=== PATIENT | female | born 1960 | race Two or more races ===

== ENCOUNTER 2023-09-29 12:35 | Outpatient (REF) | payer MEDICAID, SELFPAY ==
[2023-09-29 14:23] LABS: Estimated Average Glucose 123 mg/dL; Hemoglobin A1c % 5.9 % (<6.0)
[2023-09-29 14:44] LABS: Alanine Aminotransferase 14 U/L (0-31); Alkaline Phosphatase 95 U/L (39-117); Anion Gap 15 (12-20); Aspartate Amino Transferase 20 U/L (5-31); Bilirubin Total 0.2 mg/dL (0.0-1.0); Blood Urea Nitrogen 12 mg/dL (9-16); Calcium 9.4 mg/dL (8.4-10.2); Carbon Dioxide 24 mmol/L (22-29); Chloride 107 mmol/L (96-108); Cholesterol 200 mg/dL (<200); Estimated Glomerular Filt Rate > 60; Glucose Fasting 107 mg/dL (60-99); HDL Cholesterol 41 mg/dL (>40); LDL Cholesterol Calculated 117 mg/dL (<100); Potassium 3.5 mmol/L (3.3-5.1); Sodium 142 mmol/L (135-145); Total Protein 7.6 g/dL (6.5-8.0); Triglycerides 210 mg/dL (<150)
[2023-09-29 14:51] LABS: TSH reflex Free T4 2.17 uIU/mL (0.32-4.0)
== END 2023-09-29 12:36 | disposition home or self-care (01) ==
LOC: HO.CHCLDS 12:35
PROVIDERS: Visit Provider Registered Nurse
DX: Z00.00 Encounter for general adult medical examination without abnormal findings (principal); R73.03 Prediabetes; E78.1 Pure hyperglyceridemia; I10 Essential (primary) hypertension
CPT/HCPCS: 36415; 80053; 80061; 83036; 84443

== ENCOUNTER 2023-12-22 12:51 | Outpatient (REF) | payer MEDICAID, SELFPAY ==
[2023-12-22 14:12] LABS: MANUAL DIFF FLAG NO
[2023-12-22 14:21] LABS: Basophils Percent Auto 0.4 % (0-2); Eosinophils Absolute Auto 0.3 X10*3/uL (0.0-0.4); Eosinophils Percent Auto 3.3 % (0-4); Hematocrit 33.5 % (37.0-47.0); Hemoglobin 10.7 g/dl (12.0-16.0); Imm Gran Abs Auto 0.02 X10*3/uL (0.00-0.03); Imm Gran Pct Auto 0.3 % (0.0-0.4); Lymphocytes Absolute Auto 1.5 X10*3/uL (1.2-4.9); Lymphocytes Percent Auto 19.9 % (20-40); Mean Corpuscular HGB Conc 31.9 g/dl (31.0-35.0); Mean Corpuscular Hemoglobin 26.9 pg (27.0-33.0); Mean Corpuscular Volume 84.2 fL (80.0-98.0); Mean Platelet Volume 10.5 fL (9.4-12.3); Monocytes Absolute Auto 0.3 X10*3/uL (0.1-1.2); Monocytes Percent Auto 4.1 % (2-11); Neutrophils Absolute Auto 5.5 x10*3/uL (2.0-8.3); Platelet Count 379 X10*3/uL (160-400); Red Blood Count 3.98 X10*6/uL (4.20-5.50); Red Cell Distribution Width 15.5 % (11.0-16.0); White Blood Count 7.7 X10*3/uL (4.8-10.8)
[2023-12-22 15:21] LABS: Anion Gap 13 (12-20); Blood Urea Nitrogen 21 mg/dL (9-16); Calcium 9.6 mg/dL (8.4-10.2); Carbon Dioxide 27 mmol/L (22-29); Chloride 106 mmol/L (96-108); Estimated Glomerular Filt Rate 53; Glucose Random 98 mg/dL (60-115); Potassium 3.7 mmol/L (3.3-5.1); Sodium 142 mmol/L (135-145)
[2023-12-22 15:24] LABS: Alanine Aminotransferase 17 U/L (0-31); Albumin Level 4.2 g/dL (3.5-5.0); Alkaline Phosphatase 77 U/L (39-117); Aspartate Amino Transferase 18 U/L (5-31); Bilirubin Direct < 0.2 mg/dL (0.0-0.5); Bilirubin Total 0.1 mg/dL (0.0-1.0); Cholesterol 178 mg/dL (<200); HDL Cholesterol 33 mg/dL (>40); LDL Cholesterol Calculated 75 mg/dL (<100); Total Protein 7.8 g/dL (6.5-8.0); Triglycerides 353 mg/dL (<150)
[2023-12-23 12:58] LABS: HBS Num1 0.05 mIU/mL (0-7.99); HBc Num1 0.12 S/CO (0.00-0.79); Hepatitis B Core Antibody Nonreactive (Nonreactive); Hepatitis B Surface Antigen Negative (Negative); ~Hepatitis B Surface Antibody NONREACTIVE (Nonreactive)
[2023-12-23 17:49] LABS: Mumps Virus IgG Antibody <9.00 AU/mL; Rubella IgG Antibody 1.83 Index; Rubeola IgG (Measles) >300.00 AU/mL
[2023-12-24 20:24] LABS: TS Negative Control Passed; TS Panel A 0; TS Panel B 0; TS Positive Control Passed; TSpotTB Negative (Negative)
== END 2023-12-22 12:52 | disposition home or self-care (01) ==
LOC: HO.CHCLDS 12:51
PROVIDERS: Visit Provider Registered Nurse
DX: Z00.00 Encounter for general adult medical examination without abnormal findings (principal); Z11.1 Encounter for screening for respiratory tuberculosis; E78.00 Pure hypercholesterolemia, unspecified
CPT/HCPCS: 36415; 80048; 80061; 80076; 85025; 86481; 86704; 86706; 86735; 86762; 86765; 86787; 87340

== ENCOUNTER 2024-03-11 12:16 | Outpatient (REF) | payer MEDICAID, SELFPAY ==
[2024-03-11 13:21] LABS: MANUAL DIFF FLAG NO
[2024-03-11 13:29] LABS: Basophils Percent Auto 0.5 % (0-2); Eosinophils Absolute Auto 0.3 X10*3/uL (0.0-0.4); Eosinophils Percent Auto 4.7 % (0-4); Hematocrit 33.9 % (37.0-47.0); Hemoglobin 10.8 g/dl (12.0-16.0); Imm Gran Abs Auto 0.04 X10*3/uL (0.00-0.03); Imm Gran Pct Auto 0.6 % (0.0-0.4); Lymphocytes Absolute Auto 1.7 X10*3/uL (1.2-4.9); Lymphocytes Percent Auto 26.5 % (20-40); Mean Corpuscular HGB Conc 31.9 g/dl (31.0-35.0); Mean Corpuscular Hemoglobin 27.3 pg (27.0-33.0); Mean Corpuscular Volume 85.8 fL (80.0-98.0); Mean Platelet Volume 10.7 fL (9.4-12.3); Monocytes Absolute Auto 0.4 X10*3/uL (0.1-1.2); Monocytes Percent Auto 6.2 % (2-11); Neutrophils Percent Auto 61.5 % (45-73); Platelet Count 328 X10*3/uL (160-400); Red Blood Count 3.95 X10*6/uL (4.20-5.50); Red Cell Distribution Width 14.6 % (11.0-16.0); White Blood Count 6.6 X10*3/uL (4.8-10.8)
[2024-03-11 13:45] LABS: Anion Gap 11 (12-20); Blood Urea Nitrogen 12 mg/dL (9-16); Calcium 9.3 mg/dL (8.4-10.2); Carbon Dioxide 26 mmol/L (22-29); Chloride 109 mmol/L (96-108); Estimated Glomerular Filt Rate 54; Glucose Random 95 mg/dL (60-115); Sodium 142 mmol/L (135-145)
== END 2024-03-11 12:17 | disposition home or self-care (01) ==
LOC: HO.HHCL 12:16
PROVIDERS: Visit Provider Internal Medicine
DX: Z01.818 Encounter for other preprocedural examination (principal)
CPT/HCPCS: 36415; 80048; 85025

== ENCOUNTER 2024-05-21 09:56 | Outpatient (REF) | payer MEDICAID, SELFPAY ==
[2024-05-21 14:41] LABS: Cholesterol 186 mg/dL (<200); HDL Cholesterol 38 mg/dL (>40); LDL Cholesterol Calculated 95 mg/dL (<100); Triglycerides 269 mg/dL (<150)
[2024-05-21 15:10] LABS: Folate 13.8 ng/mL (> or = 4.0); Vitamin B12 718 pg/mL (200-900)
[2024-05-25 13:13] LABS: Methylmalonic Acid 132 nmol/L (69-390)
== END 2024-05-21 09:57 | disposition home or self-care (01) ==
LOC: HO.CHCLDS 09:56
PROVIDERS: Visit Provider Registered Nurse
DX: G47.9 Sleep disorder, unspecified (principal); E78.00 Pure hypercholesterolemia, unspecified
CPT/HCPCS: 36415; 80061; 82607; 82746; 83921

== ENCOUNTER → 2024-07-26 14:00 | Outpatient (BNV) | payer MEDICAID, SELFPAY | PROVIDERS: PCP Registered Nurse; Referring Provider Registered Nurse; Visit Provider Internal Medicine | DX: D50.9 Iron deficiency anemia, unspecified (principal) | CPT/HCPCS: 99204 ==

== ENCOUNTER 2024-09-20 13:11 | Outpatient (REF) | payer MEDICAID, SELFPAY ==
[2024-09-20 15:37] LABS: TSH reflex Free T4 1.91 uIU/mL (0.32-4.0)
== END 2024-09-20 13:12 | disposition home or self-care (01) ==
LOC: HO.HHCL 13:11
PROVIDERS: Visit Provider Internal Medicine
DX: F41.9 Anxiety disorder, unspecified (principal)
CPT/HCPCS: 36415; 84443

== ENCOUNTER 2024-12-22 12:51 | Outpatient (REF) | payer MEDICAID, SELFPAY ==
[2024-12-22 14:27] LABS: Estimated Average Glucose 128 mg/dL; Hemoglobin A1C 119.4086 umol/L; Hemoglobin A1c % 6.1 % (<6.0); Total Hemoglobin (HGBA1C) 2786.5129 umol/L
[2024-12-22 14:31] LABS: Amphetamine Screen Urine Not Detected (Not Detect); Barbiturates, Urine Not Detected (Not Detect); Benzodiazepines Screen Urine Not Detected (Not Detect); Buprenorphine Scr Not Detected (Not Detect); Cannabinoid Screen Urine Not Detected (Not Detect); Cocaine Screen Urine Not Detected (Not Detect); Fentanyl, urine Not Detected (Not Detect); Methadone Screen, Urine Not Detected (Not Detect); Opiate Screen Urine Not Detected (Not Detect); Oxycodone Screen Urine Not Detected (Not Detect); Phencyclidine Screen Urine Not Detected (Not Detect)
[2024-12-22 14:38] LABS: Alanine Aminotransferase 48 U/L (0-31); Albumin Level 3.9 g/dL (3.5-5.0); Alkaline Phosphatase 91 U/L (39-117); Anion Gap 6 (12-20); Aspartate Amino Transferase 35 U/L (5-31); Bilirubin Total 0.2 mg/dL (0.0-1.0); Blood Urea Nitrogen 18 mg/dL (9-16); Carbon Dioxide 26 mmol/L (22-29); Chloride 111 mmol/L (96-108); Cholesterol 140 mg/dL (<200); Estimated Glomerular Filt Rate > 60; Glucose Random 86 mg/dL (60-115); HDL Cholesterol 26 mg/dL (>40); LDL Cholesterol Calculated 42 mg/dL (<100); Magnesium 2.2 mg/dL (1.6-2.6); Potassium 3.9 mmol/L (3.3-5.1); Sodium 139 mmol/L (135-145); Total Protein 7.5 g/dL (6.5-8.0); Triglycerides 360 mg/dL (<150)
--- OUTSIDE RECORDS SUMMARY | 2024-12-22 14:39 | XMS_ITS | Encounter Summary ---
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 Role Phone Unavailable Primary Care Provider Unavailabl e Encounter Details Date Type Department Care Team (Late st Contact Info) Description 10/07/2022 Dental Interim Note [facility] [address] [place] [phone] PascalChinyere solomon Y [address] [place], [place] [id number] Social History Tobacco Use Types Packs/Day Years Used Date Smoking Tobacco: Never Assessed Social Connections Answer Date Recorded Social Connections and Isolation 0 04/01/2022 Financial Resource Strain Answer Date R ecorded Financial Resource Strain 0 2021 Stress Answer Date Recorded Stress 0 04/01/2022 Physical Activity Answer Date Recorded Physical Activity 0 04/01/2022 Food Insecurity Answer Date Recorded Food 0 04/01/2022 Transportation Needs Answer Date Record ed Transportation 0 04/01/2022 Housing Stability Answer Date Recorded Housing 0 04/01/2022 Safety and Environment Answer Date Tra rded Safety 0 04/01/2022 Utilities Answer Date Recorded Utilities 0 04/01/2022 Employment Answer Date Recorded Employment 0 04/01/2022 Comments Unknown Sex and Gender Information Value Date Recorded Sex Assigned at Not on file Legal Sex Female 11:36 AM PDT Gender Identity Not on file Sexual Orientation Not on file documented as of this encounter Plan of Treatment Not on file documented as of this encounter Visit Diagnoses Not on filedocumented in this encounter
--- OUTSIDE RECORDS SUMMARY | 2024-12-22 14:39 | XMS_ITS | Clinical Summary ---
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 Role Phone Unavailable Primary Care Provider Unavailabl e Source Comments PLEASE NOTE, if this patient is a minor, it may be UNLAWFUL to discuss sensitive information that is contained in these records (such as FAMILY PLANNING, MENTAL HEALTH or SUBSTANCE ABUSE) with the minor patient's parent or other person without the patient's specific authorization.[facility] Medications No known medications Active Problems No known active problems Social History Tobacco Use Types Packs/Day Years Used Date Smoking Tobacco: Never Smokeless Tobacco: Never Tobacco Cessation:Counseling Given: Not Answered Social Connections Answer Date Recorded Connectedness 0 08/18/2024 Financial Resource Strain Answer Date R ecorded Financial Resource Strain 0 2021 Stress Answer Date Recorded Stress 0 04/01/2022 Physical Activity Answer Date Recorded Physical Activity 0 04/01/2022 Food Insecurity Answer Date Recorded Food 0 08/26/2024 Transportation Needs Answer Date Record ed Transportation 0 04/01/2022 Housing Stability Answer Date Recorded Housing 0 04/01/2022 Safety and Environment Answer Date Tra rded Safety 0 04/01/2022 Utilities Answer Date Recorded Utilities 0 04/01/2022 Employment Answer Date Recorded Stress 0 08/18/2024 Comments Unknown Sex and Gender Information Value Date Recorded Sex Assigned at Not on file Legal Sex Female 11:36 AM PDT Gender Identity Not on file Sexual Orientation Not on file Last Filed Vital Signs Vital Sign Reading Time Taken Comments Blood Pressure 165/76 02/24/2024 1:24 PM EDT Pulse 72 02/24/2024 1:24 PM EDT Temperature - - Respiratory Rate - - Oxygen Saturation - - Inhaled Oxygen Concentration - - Weight - - Height - - Body Mass Index - - Plan of Treatment Health Maintenance Due Date Last Done Comments Dental FMX/Pano 1960 HPV Screening 1960 Pap + HPV 1960 Cervical Cancer Screening 02/17/1981 Pap Smear 02/17/1981 Breast Cancer Screening (Mammogram) 2000 CT Colonography 02/17/2005 Colonoscopy 02/17/2005 Colorectal Cancer Screening 02/17/2005 FIT/gFOBT 02/17/2005 Fecal DNA 02/17/2005 Flexible Sigmoidoscopy 02/17/2005 Imm-Zoster, Recombinant (1 of 2) 02/17/2010 [id number] ( season) 2024 Imm-Influenza (#1) 2024 09/04/2021, 0 08/20/2020, 09/13/2019, Additional history exists Alcohol and Drug Screen 12/01/2024 Depression Annual Screen 12/01/2024 Tobacco Screening 01/05/2025 01/05/2024 Dental BW 01/07/2025 01/05/2024, 01/29, 04/01/2022 Dental Examination 01/07/2025 01/05/2024, 0 02/12/2023, 04/01/2022 Dental Perio Charting 01/07/2025 01/05/2024, 022 Dental Prophy 01/07/2025 01/05/2024, 02/12/2023 Hypertension Screening (#1) 02/23/2025 Diabetes Screening 03/27/2026 03/27/2023, 0 12/17/2022, 07/15/2022, Additional history exists Imm-DTaP/Tdap/Td (3 - Td or Tdap) 07/30/2026 016, 05/15/2011 Lipid Screening 01/27/2028 01/27/2023, 12/17/2022 HIV Screening Completed 11/13/2021 Hepatitis C Screening Completed 12/17/2022 Cervical Ablation/Cold-Knife Conization Discontinued Cervical Cryotherapy Discontinued Colposcopy Discontinued Endometrial Biopsy Discontinued Excision/Leep Discontinued HPV Genotyping Discontinued Vaginal Pap Discontinued Vulvoscopy Discontinued Procedures Procedure Name Priority Date/Time Associated Diagnosis Comments COMP PERIODONTAL EVALUATION - NEW/EST PATIENT Routine 01/05/2024 2:20 PM EST Encounter for dental examination and cleaning with abnormal findings BITEWINGS - FOUR RADIOGRAPHIC IMAGES Routine 01/05/2024 2:20 PM EST Defective dental samaritan Encounter for dental examination and cleaning with abnormal findings PROPHYLAXIS - ADULT Routine 01/05/2024 2 :20 PM EST Encounter for dental examination and cleaning with abnormal findings PERIODIC ORAL EVALUATION ESTABLISHED PATIENT Routine 01/05/2024 2:20 PM EST Encounter for dental examination and cleaning with abnormal findings from Last 3 Months or Most Recently Relevant to Health Maintenance Insurance [facility] [address] [place]
--- OUTSIDE RECORDS SUMMARY | 2024-12-22 14:40 | XMS_ITS | Clinical Summary ---
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 Health Questionnaire-2 Score 2 12/13/2024 Comments Unknown Sex and Gender Information Value Date Recorded Sex Assigned at Female 09/30/2022 10:37 AM EDT Legal Sex Female 10:37 AM EDT Gender Identity Female 09/30/2022 10:37 AM EDT Sexual Orientation Straight 09/30/2022 10 :37 AM EDT Last Filed Vital Signs Vital Sign Reading Time Taken Comments Blood Pressure 140/71 12/13/2024 11:23 AM EST Pulse 70 12/13/2024 11:23 AM EST Temperature 36.9 ??C (98.5 ??F) 12/13/2024 11:[address] Respiratory Rate 20 12/13/2024 11:23 AM EST Oxygen Saturation 98% 12/13/2024 11:23 AM EST Inhaled Oxygen Concentration - - Weight 84 kg (185 lb 2 oz) 12/13/2024 11:[address] Height 160 cm (5' 3 ) 12/13/2024 11:23 AM EST Body Mass Index 32.79 12/13/2024 11:23 AM EST Plan of Treatment Health Maintenance Due Date Last Done Comments CT Colonography 1960 Colonoscopy 1960 Colorectal Cancer Screening 1960 FIT DNA/Cologuard 1960 FIT 1960 FOBT 1960 Sigmoidoscopy 1960 Hepatitis A Vaccines (1 of 2 - Risk 2-dose series) 02/17/1979 Zoster Vaccines (1 of 2) 02/17/2010 RSV Patients and Patients Aged 60 years or older (1 - Risk 60-74 years 1-dose series) 2020 COVID-19 Vaccine ( season) 2024 Influenza Vaccine (#1) 2024 , 09/04/2021, 08/20/2020, Additional history exists Hepatitis B Vaccines (3 of 3 - Risk 3-dose series) 08/04/2024 05/21/2024, 02/02/2024 Diabetes: Hemoglobin A1C 09/29/2024 025, 09/29/2023, 03/27/2023, Additional history exists Mammogram 02/04/2025 02/04/2023 SDOH Screening 05/11/2025 05/11/2024 Depression Monitoring (PHQ-9) 06/12/2025 12/13/2024, 12/13/2024 Alcohol/Substance Use Screening 11/05/2025 11/05/2024 Depression Screening 12/13/2025 12/13/2024, 12/13/19 Tobacco Screening 12/13/2025 12/13/2024 DTaP/Tdap/Td Vaccines (3 - Td or Tdap) 07/30/2026 07/30/2016, 05/15/2011 Cervical Cancer Screening 01/02/2027 HPV/Cotest 01/02/2027 01/02/2022 Pap Smear 01/02/2027 01/02/2022 Lipid Panel 05/21/2029 12/22/2024, 0612/2023, 12/22/2023, Additional history exists Pneumococcal Vaccine: Pediatrics (0 to 5 Years) and At-Risk Patients (6 to 64 Years) Aged Out 08/28/2016, 09/13/2014 No longer eligibl e based on patient's age to complete this topic HIV Screening Completed 12/17/2022, 11/13/2021 Hepatitis C Screening Completed 12/17/2022 , 11/13/2021, 03/26/2021 HIB Vaccines Aged Out No longer eligi ble based on patient's age to complete this topic HPV Vaccines Aged Out No longer eligi ble based on patient's age to complete this topic IPV Vaccines Aged Out No longer eligi ble based on patient's age to complete this topic Meningococcal Vaccine Aged Out No dione casimiro eligible based on patient's age to complete this topic RSV under 20 months Aged Out No longe r eligible based on patient's age to complete this topic Rotavirus Vaccines Aged Out No longer eligible based on patient's age to complete this topic Goals Goal Patient Goal Type Associated Problems Recent Progress Patient-Stated? Author Record your blood pressure once per day Blood Pressure No Serafin Sue PharmD Short-term: Promote adherence to treatment regimen General No Serafin Sue PharmAlicia Take your medication every day Lifestyle No Serafin Sue PharmD Procedures Procedure Name Priority Date/Time Associated Diagnosis Comments MAGNESIUM Routine 12/22/2024 12:54 PM EST History of bariatric surgery LIPID PANEL, STANDARD Routine 12/22/2024 12:54 PM EST Prediabetes COMPREHENSIVE METABOLIC PANEL Routine 12/22/2024 12:54 PM EST Prediabetes HEMOGLOBIN A1C Routine 12/22/2024 12:54 PM EST Prediabetes DRUG MONITOR, PANEL 1, SCREEN, URINE Routine 12/22/2024 12:15 PM EST Moderate anxiety HM MAMMOGRAPHY Routine 02/04/2023 HEPATITIS C AB W/REFL TO HCV RNA, QN, PCR Routine 12/17/2022 11:08 AM EST Routine health maintenance HIV 1 RNA, QN PCR W/RFL NATHAN (RTI,PI,INTEGRASE) Routine 12/17/2022 11:08 AM EST Routine health maintenance PAP/HPV Routine 01/02/2022 from Last 3 Months or Most Recently Relevant to Health Maintenance Results * (ABNORMAL) Hemoglobin A1c (12/22/2024 12:54 PM EST) Hemoglobin A1c 6.1(H) <6.0 % [facility] Comment:Hemoglobin A1C Refer ence Range Adults: 4.8 - 6.0 % Non diabetic: < 6.0 % Goal: < 7.0 %Additional Action Suggested: > 8.0 %Note: Hemoglobin A1c results are invalid for patients with abnormal amounts of HbF. Blood transfusions may impact the HbA1c concentration in the patient sample. Estimated Average Glucose 128 mg/dL [facility] Comment:eAG = Estimated ave rage glucose which is %A1C expressed asaverage glucose, using the formula of the H7R-FeykmpqUvwmcjk Glucose study (ADAG), Diabetes Care, Vol.31,#8,Jul. 2007 Blood Venous blood specimen / Unknown 12/22/2024 12:54 PM EST 12/22/2024 2:00 PM EST Donna Sinclair [facility] BLOOD ORDERABLES Final Res ult [facility] [address] [place] [phone] * Drug Monitoring, Panel 1, Screen, Urine (12/22/2024 12:15 PM EST) Opiate Screen Urine Not Detected Not Detect [facility] Comment:Opiate cut-off is 30 0 ng/mL.Positive results are unconfirmed and should not be used fornon-medical purposes. Barbiturates, Urine Not Detected Not Detect [facility] Comment:Barbiturate cut-off is 200 ng/mL.Positive results are unconfirmed and should not be used fornon-medical purposes. Phencyclidine Screen Urine Not Detected Not Detect [facility] Comment:Phencyclidine cut-of f is 25 ng/mL.Positive results are unconfirmed and should not be used fornon-medical purposes. Amphetamine Screen Urine Not Detected Not Detect [facility] Comment:Amphetamine cut-off is 1000 ng/mL.Positive results are unconfirmed and should not be used fornon-medical purposes. Benzodiazepines Screen Urine Not Detected Not Detect [facility] Comment:Benzodiazepine cut-o ff is 200 ng/mL.Positive results are unconfirmed and should not be used fornon-medical purposes. Cocaine Screen Urine Not Detected Not Detect [facility] Comment:Cocaine cut-off is 3 00 ng/mL.Positive results are unconfirmed and should not be used fornon-medical purposes. Cannabinoid Screen Urine Not Detected Not Detect [facility] Comment:Cannabinoid cut-off is 50 ng/mL.Positive results are unconfirmed and should not be used fornon-medical purposes. Methadone Screen, Urine Not Detected Not Detect ng/mL [facility] Comment:Methadone cut-off is 300 ng/mL.Positive results are unconfirmed and should not be used fornon-medical purposes. FENTANYL URINE Not Detected Not Detect [facility] Comment:Fentanyl cut-off is 1 ng/mL.Positive results are unconfirmed and should not be used fornon-medical purposes. Oxycodone Urine Screen Not Detected Not Detect ng/mL [facility] Comment:Oxycodone cut-off is 100 ng/mL.Positive results are unconfirmed and should not be used fornon-medical purposes. Buprenorphine Screen Not Detected Not Detect ng/mL [facility] Comment:Buprenorphine cut-of f is 5 ng/mL.Positive results are unconfirmed and should not be used fornon-medical purposes. Urine (Urine, Random) 12/22/2024 12:15 PM EST 12/22/2024 2:02 PM EST Serafin Hussein PMHNP LAB URINE ORDERABLES Final Re sult [facility] [address] [place] [phone] [phone] * Hm Mammography (02/04/2023) Pathologist [facility] HM Mammogram BIRADS 2 Normal, Abnormal, BIRADS 1 , BIRADS 2 Anatomical Region Laterality Modality Other Historical Provider HEALTH MAINTENANCE Edited Result - Final * HIV-1 RNA, Quantitative, Real-Time PCR with Reflex to Genotype (RTI, PI, Integrase) (12/17/2022 11:08 AM EST) Pathologist [facility] HIV 1 RNA, QN PCR NOT DETECTED copies/mL [facility], HIV 1 RNA, QN PCR NOT DETECTED Log copies/mL [facility], Comment: REFERENCE RANGE: NOT DETECTED copies/mL ?NOT DETECTED ??Log copies/mL This test was performed using Real-Time Polymerase Chain Reaction. Reportable range is 20 to 10,000,000 copies/mL (1.30-7.00 Log copies/mL). 12/17/2022 11:0 8 AM EST 12/17/2022 11:08 AM EST Narrative [facility] - 12/21/2022 10:38 AM EST FASTING:NO FASTING: NO Donna Sinclair [facility] LAB BLOOD ORDERABLES Final Res ult [facility] [address], [place] [address] [employer], [address] [place] [address] * Hepatitis C Antibody with Reflex to HCV, RNA, Quantitative, Real-Time PCR (12/17/2022 11:08 AM EST) Pathologist [facility] Hepatitis C Antibody NON-REACT LILLIAM NON-REACT LILLIAM [employer] [place] [facility] Index 0.07 <1.00 [employer] [facility] Comment: HCV antibody was non-reactive. There is no laboratory evidence of HCV infection. In most cases, no further action is required. However, if recent HCV exposure is suspected, a test for HCV RNA (test code 46181) is suggested. For additional information please refer to http://education.Moqom.T-ZONE/faq/KPD01x4 (This link is being provided for informational/ educational purposes only.) Blood Venous blood specimen / Unknown 12/17/2022 11:08 AM EST 12/17/2022 11:08 AM EST Narrative [facility] - 12/21/2022 10:38 AM EST FASTING:NO FASTING: NO Donna Sinclair RN CLINICAL LAB BLOOD ORDERABLES Final Res ult [facility] [address], [place] [address] [employer] [facility] [address] [facility], ([address]) [place] [address] * Pap Smear (01/02/2022) Pap Negative for intraephithelial lesion or malignancy Negative for intraephithelial lesion or malignancy, Other HPV Not Detected Undetected, Indeterminate, Quantitative, Not Detected Historical Provider MD HEALTH MAINTENANCE Final Result from Last 3 Months or Most Recently Relevant to Health Maintenance Insurance [facility] Care Teams Flyer Maker Relationship Specialty Start Date End Date Donna Sinclair FNP [address] [place] [phone] PCP - General Family Medicine 07/23/22 Nafisa Garcia MD [address] [place] [phone] Hematology and Oncology 11/11/24
--- OUTSIDE RECORDS SUMMARY | 2024-12-22 14:40 | XMS_ITS | Encounter Summary ---
Author Organization [employer] Address [address] [facility] [address] [place] [address] Care Team Providers Care Sales Account Leader Name Role Phone Donna Sinclair [place] Primary Care Provider [phone] Nafisa Garcia MD Unavailable Encounter Details Date Type Department Care Team (Latest Contact Info) Description 12/13/2024 Travel Social History Tobacco Use Types Packs/Day Years Used Date Smoking Tobacco: Never Smokeless Tobacco: Never Alcohol Use Standard Drinks/Week Comments Never 0 (1 standard drink = 0.6 oz pur e alcohol) Depression Answer Date Recorded Patient Health Questionnaire-9 Score 10 12/13/2024 Patient Health Questionnaire-9 Score 10 12/13/2024 Last PHQ-9: Questionnaire Data Not on file 0 12/13/2024 Housing Stability Answer Date Recorded What is your housing situation today? I have lashae fontana 05/11/[address] you [...] Orientation Straight 09/30/2022 10 :37 AM EDT documented as of this encounter Plan of Treatment Not on file documented as of this encounter Goals Goal Patient Goal Type Associated Problems Recent Progress Patient-Stated? Author Record your blood pressure once per day Blood Pressure No Serafin Sue PharmD Short-term: Promote adherence to treatment regimen General No Serafin Sue PharmD Take your medication every day Lifestyle No Serafin Sue PharmD documented as of this encounter Visit Diagnoses Not on filedocumented in this encounter Additional Health Concerns Assessment Noted Time PHQ-9 Depression Total Score: 10 025 11:34 AM EST documented as of this encounter Care Teams Sales Account Leader Relationship Specialty Start Date End Date Donna Sinclair FNP [address] [place] [address] PCP - General Family Medicine 07/23/22 Nafisa Garcia MD [address] [place] [phone] Hematology and Oncology 11/11/24 documented as of this encounter
--- OUTSIDE RECORDS SUMMARY | 2024-12-22 14:40 | XMS_ITS | Encounter Summary ---
Author Organization [employer] Address [address] [place] [address] [address] [place] [address] Care Team Providers Care Enterprise Manager Name Role Phone Donna Sinclair Primary Care Provider [phone] Nafisa Garcia MD Unavailable [phone] Reason for Referral * Consultation (Routine) - Authorized Specialty Diagnoses / Procedures Referred By Pillo spicer Referred To Contact Dermatology / Family Medicine Diagnoses Alopecia Donna Sinclair FNP [address] [place] [address] Phone: tel: fax: Travis Gillette MD [address] [place] [address] Phone: tel: fax: Referral ID Status Reason Start Date Expiration Date Visits Requested Visits Authorized [id number] Authorized Consult and Treat 12/13/2024 12/13/2025 1 1 Encounter Details Date Type Department Care Team ([facility] st Contact Info) Description 12/13/2024 11:00 AM EST Office Visit [facility] [address] [place], [place] [phone] Donna Sinclair FNP [address] [place], [place] [phone] Alopecia (Primary Dx); Prediabetes; Anemia, unspecified type; Other insomnia; Moderate anxiety; History of bariatric surgery; Subclinical hypothyroidism; Skin abrasion; Obesity, unspecified class, unspecified obesity type, unspecified whether serious comorbidity present Social History Tobacco Use Types Packs/Day Years [...] AM EDT documented as of this encounter Last Filed Vital Signs Vital Sign Reading [...] Mass Index 32.79 12/13/2024 11:23 AM EST documented in this encounter Progress Notes * Donna Dottie, PLOW HOLDER - 12/13/2024 11:00 AM EST Subjective: Margarita Garza is a 64 y.o. female w/ PMH hypertension, detrusor overactivity, MDD, anxiety, HTG, HLD, alopecia, and sleep difficulties who presents to the office for a follow up visit. Interim history: Last visit with PCP: 11/05/24 12/10/24: Heme/Onc - Dr. Garcia. SUNITHA eval. Labs demonstrated mild normocytic anemia w/o significant iron deficiency. No need for parenteral iron therapy at this time. She will be monitored. Advised togo for EGD and colonoscopy. HPI: She continues grappling with grief following the passing of her . During last appointment, she was started on buspirone 5 mg twice daily to help with anxiety. Reports that she experiencedrash with buspirone and thus self discontinued. She continues with topiramate 50 mg nightly, which continues to be helpful for sleep. She is scheduled for an upcoming appointment with our addiction psychiatrist. Past Surgical History: Procedure Laterality Date BARIATRIC SURGERY gastric sleeve SACRAL NERVE STIMULATOR PLACEMENT 03/18/2024 Sacral Neuromodulation Permanent Implant (Dr. Zamora at [facility]) Family History Problem Relation Asthma Mother Hyperlipidemia Mother Coronary artery disease Mother Diabetes type II Father Other (thyroid disorder) Father Social History Living situation: lives alone Substance use: denies use of tobacco, opioids, or cocaine Mental health: denies SI/HI/thoughts of self harm Allergies Allergen Reactions Acetaminophen Other reaction(s): Vomiting Bupropion Other BP increase and palpitations Oxycodone Other reaction(s): Vomiting Oxycodone-Acetaminophen Other reaction(s): VOMIT Codeine Rash Other reaction(s): Vomiting Review of Systems Constitutional: Negative for chills and fever. HENT: Negative for congestion. Gastrointestinal: Negative for diarrhea, nausea and vomiting. Skin: Negative for rash. Neurological: Negative for dizziness. Psychiatric/Behavioral: Negative for suicidal ideas. The patient is nervous/anxious. Visit Vitals BP 140/71 (BP Location: Left arm, Patient Position: Sitting, BP Cuff Size: Large adult) Pulse 70 Temp 98.5 ??F (36.9 ??C) (Oral) Resp 20 Ht 5' 3 (1.6 m) Wt 185 lb 2 oz (84 kg) LMP (LMP Unknown) SpO2 98% BMI 32.79 kg/m?? Smoking Status Never BSA 1.93 m?? Physical Exam Constitutional: Appearance: Normal appearance. HENT: Head: Atraumatic. Right Ear: External ear normal. Left Ear: External ear normal. Cardiovascular: Rate and Rhythm: Normal rate and regular rhythm. Pulmonary: Effort: Pulmonary effort is normal. Breath sounds: Normal breath sounds. Skin: Comments: Approximately 1 cm skin abrasion on hand Neurological: Mental Status: She is alert and oriented to person, place, and time. Psychiatric: Mood and Affect: Mood normal. Behavior: Behavior normal. ALISON-7 Total Score: 8 (12/13/2024 11:35 AM) Patient Health Questionnaire-9 Score: 10 (12/13/2024 11:34 AM) Patient Health Questionnaire-2 Score: 2 (12/13/2024 11:34 AM) Thoughts that you would be better off or hurting yourself in some way: Not at all (12/13/2024 11:34 AM) Problem List Items Addressed This Visit Nervous Other insomnia Current Assessment & Plan -Continue topiramate 50mg nightly Previous ineffective med [...] or read before trying to re-initiate sleep. Endocrine/Metabolic Prediabetes Overview Lab Results Component Value Date HGBA1C 6.0 (H) 03/27/2023 -Continue metoformin 500mg with evening meal. Reviewed med safety and SE. Relevant Orders Hemoglobin A1c Comprehensive Metabolic Panel Lipid Panel, Standard Subclinical hypothyroidism Overview Lab Results Component Value Date TSH 7.28 (H) 12/17/2022 -T4 WNL -Family history of thyroid disorder -Pt reported fatigue, hair loss, intermittent constipation -Continues with levothyroxine 25mcg every other day Relevant Orders TSH W/Reflex to FT4 Hematologic Anemia Current Assessment & Plan Hx anemia dating back to 2020. Hemoglobin range 10.4-11.7. MCV normocytic. Following with [facility]e/Onc - Dr. Garcia. Consult Dec 2024 - no need for parenteral iron at this time, rec EGD/colonoscopy Other Moderate anxiety Current Assessment & Plan Previous med trials: Hydroxyzine, SSRI, and buspirone. Discontinued either d/t SE or not effective in past Alopecia - Primary Current Assessment & Plan Referral to reestablish with [facility] Derm Team Relevant Orders Referral to [facility] Derm Skin Other Visit Diagnoses History of bariatric surgery Relevant Orders Vitamin D, 25-Hydroxy, Total, Immunoassay Magnesium Skin abrasion Mupirocin as needed Relevant Medications mupirocin (Bactroban) 2 % ointment Obesity, unspecified class, unspecified obesity type, unspecified whether serious comorbidity present - Reviewed importance of continued physical activity and healthy nutrition - Not ideal candidate for phentermine due to cardiac history, prediabetes, and age - Plan to submit PA for Zepbound, follow-up if approved for further teaching Relevant Medications Tirzepatide-Weight Management (Zepbound) 2.5 MG/0.5ML solution auto-injector Follow up: 3 months, sooner as needed. documented in this encounter Miscellaneous Notes * Assessment & Plan Note - [place] Pena - 12/16/2024 10:17 AM EST Associated Problem(s): Alopecia Referral to reestablish with [facility] Derm Team * Assessment & Plan Note - [place] Pena - 12/16/2024 10:17 AM EST Associated Problem(s): Moderate anxiety Previous med trials: Hydroxyzine, SSRI, and buspirone. Discontinued either d/t SE or not effective in past * Assessment & Plan Note - [place] Pena - 12/16/2024 10:15 AM EST Associated Problem(s): Other insomnia -Continue topiramate 50mg nightly Previous ineffective med [...] or read before trying to re-initiate sleep. * Assessment & Plan Note - [place] Pena - 12/16/2024 10:11 AM EST Associated Problem(s): Anemia Hx anemia dating back to 2020. Hemoglobin range 10.4-11.7. MCV normocytic. Following with [facility]e/Onc - Dr. Garcia. Consult Dec 2024 - no need for parenteral iron at this time, rec EGD/colonoscopy documented in this encounter Plan of Treatment Pending Results Name Type Priority Associated Diagnoses Date /Time Comprehensive Metabolic Panel Lab Routine Prediabetes 12/22/2024 12:54 PM EST Lipid Panel, Standard Lab Routine Prediabetes 12/22/2024 12:54 PM EST Magnesium Lab Routine History of bariatric surgery 12/22/2024 12:54 PM EST Scheduled Orders Name Type Priority Associated Diagnoses Orde r Schedule TSH W/Reflex to FT4 Lab Routine Subclinical hypothyroidism Expected: 12/13/2024 (Approximate), Expires: 12/13/2025 Vitamin D, 25-Hydroxy, Total, Immunoassay Lab Routine History of bariatric surgery Expected: 12/13/2024 (Approximate), Expires: 12/13/2025 Scheduled Referrals Name Type Priority Associated Diagnoses Orde r Schedule Referral to [facility] Derm Skin Outpatient Referral Routine Alopecia Expected: 12/13/2024 (Approximate), Expires: 12/13/2025 documented as of this encounter Goals Goal Patient Goal Type Associated Problems Recent Progress Patient-Stated? Author Record your blood pressure once per day Blood Pressure No Serafin Sue PharmD Short-term: Promote adherence to treatment regimen General No Serafin Sue PharmD Take your medication every day Lifestyle No Serafin Sue PharmD documented as of this encounter Procedures Procedure Name Priority Date/Time Associated Diagnosis Comments MAGNESIUM Routine 12/22/2024 12:54 PM EST History of bariatric surgery HEMOGLOBIN A1C Routine 12/22/2024 12:54 PM EST Prediabetes LIPID PANEL, STANDARD Routine 12/22/2024 12:54 PM EST Prediabetes COMPREHENSIVE METABOLIC PANEL Routine 12/22/2024 12:54 PM EST Prediabetes documented in this encounter Results * (ABNORMAL) Hemoglobin A1c (12/22/2024 12:54 PM EST) Hemoglobin A1c 6.1(H) <6.0 % [facility] Comment:Hemoglobin A1C Refer ence Range Adults: 4.8 - 6.0 % Non diabetic: < 6.0 % Goal: < 7.0 %Additional Action Suggested: > 8.0 %Note: Hemoglobin A1c results are invalid for patients with abnormal amounts of HbF. Blood transfusions may impact the HbA1c concentration in the patient sample. Estimated Average Glucose 128 mg/dL [facility] Comment:eAG = Estimated ave rage glucose which is %A1C expressed asaverage glucose, using the formula of the F0X-IxyvcbxWtpeyrq Glucose study (ADAG), Diabetes Care, Vol.31,#8,Jul. 2007 Blood Venous blood specimen / Unknown 12/22/2024 12:54 PM EST 12/22/2024 2:00 PM EST us Donna Sinclair PLOW HOLDER LAB BLOOD ORDERABLES Final Res ult [facility] [address] [place] [phone] documented in this encounter Visit Diagnoses Diagnosis Alopecia- Primary Prediabetes Other abnormal glucose Anemia, unspecified type Other insomnia Moderate anxiety History of bariatric surgery Bariatric surgery status Subclinical hypothyroidism Other specified acquired hypothyroidism Skin abrasion Abrasion or friction burn of other, multiple, and unspecified sites, without mention of infection Obesity, unspecified class, unspecified obesity type, unspecified whether serious comorbidity present documented in this encounter Additional Health Concerns Assessment Noted Time PHQ-9 Depression Total Score: 10 025 11:34 AM EST documented as of this encounter Care Teams Enterprise Manager Relationship Specialty Start Date End Date Donna Sinclair FNP [address] [place] [address] PCP - General Family Medicine 07/23/22 Nafisa Garcia MD [address] [place] [phone] Hematology and Oncology 11/11/24 documented as of this encounter
--- OUTSIDE RECORDS SUMMARY | 2024-12-22 14:41 | XMS_ITS | Encounter Summary ---
Author Organization [employer] Address [address] [facility] 7t [place] [address] Care Team Providers Care Children'S Service Worker Name Role Phone Donna Sinclair Primary Care Provider Nafisa Garcia MD Unavailable Reason for Visit * Reason Comments Med Refill Encounter Details Date Type Department Care Team (Late st Contact Info) Description 08/28/[address] [facility] MED[facility] [address] [place] [address] Donna Sinclair FNP [address] [place] [address] Social History Tobacco Use Types Packs/Day Years Used Date Smoking Tobacco: Never Smokeless Tobacco: Never Alcohol Use Standard Drinks/Week Comments Never 0 (1 standard drink = 0.6 oz pur e alcohol) Depression Answer Date Recorded Patient Health Questionnaire-9 Score 8 12/10/2022 Depression Answer Date Recorded Patient Health Questionnaire-2 Score 2 12/10/2022 Comments Unknown Sex and Gender Information Value [...] Take your medication every day Lifestyle No Vikram, Serafin, PharmD documented as of this encounter Visit Diagnoses Not on filedocumented in this encounter Additional Health Concerns Assessment Noted Time PHQ-9 Depression Total Score: 8 12/10/19 23 1:13 PM EST documented as of this encounter Care Teams Children'S Service Worker Relationship Specialty Start Date End Date Donna Sinclair FNP [address] [place] [address] PCP - General Family Medicine 07/23/22 Nafisa Garcia MD [address] [place] [address] Hematology and Oncology 11/11/24 documented as of this encounter
--- OUTSIDE RECORDS SUMMARY | 2024-12-22 14:41 | XMS_ITS | Encounter Summary ---
Author Organization [employer] Address [address] [facility] 7t [place] [address] Care Team Providers Care Newspaper Copy Editor Name Role Phone Donna Sinclair Primary Care Provider [phone] Nafisa Garcia MD Unavailable Reason for Visit * Reason Onset Date Comments Medication Question 11/26/2023 Encounter Details Date Type Department Care Team ([facility] st Contact Info) Description 11/26/2023 Telephone [facility] [address] [place] [address] Donna Sinclair FNP [address] [place] [address] Medication Question Social History Tobacco Use Types Packs/Day Years Used Date Smoking Tobacco: Never Smokeless Tobacco: Never Alcohol Use Standard Drinks/Week Comments Never 0 (1 standard drink = 0.6 oz pur e alcohol) Depression Answer Date Recorded Patient Health Questionnaire-9 Score 14 09/22/2023 Patient Health Questionnaire-9 Score 14 09/22/2023 Last PHQ-9: Questionnaire Data Not on file 1 Housing Stability Answer Date Recorded What is your housing situation today? I do not have housing (Staying with others, in a hotel, in a [place] [facility] [place], living outside on the street, on a beach, in a car, or in a park 09/11/[address] you li ve. Do you have problems with any of the following? None of the above 09/11/2023 Food Insecurity Answer Date Recorded Within the [...] Answer Date Recorded Patient Health Questionnaire-2 Score 3 09/22/2023 Comments Unknown Sex and Gender Information Value Date Recorded Sex Assigned at Female 09/30/2022 10:37 AM EDT Legal Sex Female 10:37 AM EDT Gender Identity Female 09/30/2022 10:37 AM EDT Sexual Orientation Straight 09/30/2022 10 :37 AM EDT documented as of this encounter Miscellaneous Notes * Telephone Encounter - Toshia Lam RN - 12/02/2023 12:46 PM EST TC X3 to pt regarding message below. LVM to return call. * Telephone Encounter - Luis De Jesus - 12/02/2023 12:19 PM EST Tc from pt returning nurses call. * Telephone Encounter - Toshia Lam RN - 11/27/2023 4:05 PM EST TC X2 to pt regarding message below. LVM to return call to nurses. * Telephone Encounter - Tiara Atkins - 11/27/2023 11:49 AM EST Tc from pt returning nurses call. * Telephone Encounter - Toshia Lam RN - 11/27/2023 11:28 AM EST TC X1 to pt regarding message below. LVM to return call to nurses. * Telephone Encounter - Jeison Hoang - 11/26/2023 11:22 AM EST Tc from pt requesting to speak to a nurse in regards to medication amitriptyline (Elavil) 10 MG tablet, states would like to increase med to 25 mg. Please contact at [phone] Mozambican documented in this encounter Plan of Treatment Not on [...] Assessment Noted Time PHQ-9 Depression Total Score: 14 023 3:26 PM EDT documented as of this encounter Care Teams Newspaper Copy Editor Relationship Specialty Start Date End Date Donna Sinclair FNP [address] [place] [address] PCP - General Family Medicine 07/23/22 Nafisa Garcia MD [address] [place] [address] Hematology and Oncology 11/11/24 documented as of this encounter
--- OUTSIDE RECORDS SUMMARY | 2024-12-22 14:41 | XMS_ITS | Encounter Summary ---
Author Organization [employer] Address [address] [facility] 7t [place] [address] Care Team Providers Care Spa Technician Name Role Phone Donna Sinclair Primary Care Provider [phone] Nafisa Garcia MD Unavailable [phone] Reason for Visit * Reason Comments Med Refill Encounter Details Date Type Department Care Team ([facility] Contact Info) Description 12/09/2024 Refill [facility] MED & PEDS [address] [place], [place] [id number] Donna Sinclair FNP [address] [place] [address] Essential hypertension; Hypertriglyceridemia; Hypercholesterolemia Social History Tobacco Use Types Packs/Day Years Used Date Smoking Tobacco: Never Smokeless Tobacco: Never Alcohol Use Standard Drinks/Week Comments Never 0 (1 standard drink = 0.6 oz pur e alcohol) Depression Answer Date Recorded Patient Health Questionnaire-9 Score 11 12/07/2024 Patient Health Questionnaire-9 Score 11 12/07/2024 Last PHQ-9: Questionnaire Data Not on file 0 12/07/2024 Housing Stability Answer Date Recorded What is [...] Date Recorded Patient Health Questionnaire-2 Score 3 12/07/2024 Comments Unknown Sex and Gender Information Value [...] documented as of this encounter Visit Diagnoses Diagnosis Essential hypertension Unspecified essential hypertension Hypertriglyceridemia Pure hyperglyceridemia Hypercholesterolemia Pure hypercholesterolemia documented in this encounter Additional Health Concerns Assessment Noted Time PHQ-9 Depression Total Score: 11 025 9:38 AM EST documented as of this encounter Care Teams Spa Technician Relationship Specialty Start Date End Date Donna Sinclair FNP [address] [place] [address] PCP - General Family Medicine 07/23/22 Nafisa Garcia MD [address] [place] [address] Hematology and Oncology 11/11/24 documented as of this encounter
--- OUTSIDE RECORDS SUMMARY | 2024-12-22 14:41 | XMS_ITS | Encounter Summary ---
Author Organization [employer] Address [address] [facility] 7t [place] [address] Care Team Providers Care Entertainment Musician Name Role Phone Donna Sinclair Primary Care Provider [phone] Nafisa Garcia MD Unavailable [phone] Reason for Visit * Reason Comments Med Refill Encounter Details Date Type Department Care Team ([facility] st Contact Info) Description 01/30/2023 Refill [facility] [address] [place] [address] Donna Sinclair FNP [address] [place] [address] Neuropathy; Primary hypertension Social History Tobacco Use Types Packs/Day Years [...] Orientation Straight 09/30/2022 10 :37 AM EDT COVID-19 Exposure Response Date Recorded In the last 10 days, have yo u been in contact with someone who was confirmed or suspected to have Coronavirus/COVID-19? No / Unsure 01/27/2023 2:51 PM EST documented as of this encounter Plan of Treatment Not on file documented as of this encounter Visit Diagnoses Diagnosis Neuropathy Mononeuritis of unspecified site Primary hypertension Unspecified essential hypertension documented in this encounter Additional Health Concerns Assessment Noted Time PHQ-9 Depression Total Score: 8 12/10/19 23 1:13 PM EST documented as of this encounter Care Teams Entertainment Musician Relationship Specialty Start Date End Date Donna Sinclair FNP [address] [place] [address] PCP - General Family Medicine 07/23/22 Nafisa Garcia MD [address] [place] [address] Hematology and Oncology 11/11/24 documented as of this encounter
--- OUTSIDE RECORDS SUMMARY | 2024-12-22 14:41 | XMS_ITS | Encounter Summary ---
Author Organization [employer] Address [address] [facility] 7t [place] [address] Care Team Providers Care Core Inserter Name Role Phone Donna Sinclair Primary Care Provider [phone] Nafisa Garcia MD Unavailable [phone] Reason for Visit * Reason Comments Med Refill Encounter Details Date Type Department Care Team ([facility] st Contact Info) Description 02/15/[address] [facility] MEDICINE [address] [place] [address] Donna Sinclair FNP [address] [place] [address] Subclinical hypothyroidism Social History Tobacco Use Types Packs/Day Years [...] suspected to have Coronavirus/COVID-19? No / Unsure 02/12/2023 1:25 PM EDT documented as of this encounter Plan of Treatment Not on file documented as of this encounter Visit Diagnoses Diagnosis Subclinical hypothyroidism Other specified acquired hypothyroidism documented in this encounter Additional Health Concerns Assessment Noted Time PHQ-9 Depression Total Score: 8 12/10/19 23 1:13 PM EST documented as of this encounter Care Teams Core Inserter Relationship Specialty Start Date End Date Donna Sinclair FNP [address] [place] [address] PCP - General Family Medicine 07/23/22 Nafisa Garcia MD [address] [place] [address] Hematology and Oncology 11/11/24 documented as of this encounter
--- OUTSIDE RECORDS SUMMARY | 2024-12-22 14:41 | XMS_ITS | Encounter Summary ---
Author Organization [employer] Address [address] [facility] 7t [place] [address] Care Team Providers Care Turret Lathe Set Up Operator Name Role Phone Donna Sinclair Primary Care Provider [phone] Nafisa Garcia MD Unavailable [phone] Reason for Visit * Reason Onset Date Comments triage 03/03/2023 Encounter Details Date Type Department Care Team ([facility] st Contact Info) Description 03/03/2023 Telephone [facility] MEDICINE [address] [place] [address] Donna Sinclair FNP [address] [place] [address] triage Social History Tobacco Use Types Packs/Day Years [...] suspected to have Coronavirus/COVID-19? No / Unsure 03/04/2023 9:40 PM EDT documented as of this encounter Miscellaneous Notes * Telephone Encounter - Lesly White RN - 03/03/2023 3:15 PM EDT Call to Margarita Garza, reports having intermittent vomiting. Per pt last episode of vomiting this morning. Per pt no blood or vomiting. No burning in chest or sour taste to mouth. Pt has headacheand dizziness. Pt used mauricio seltzer. Per pt has not been checking BP or BS regularly. 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 Pt advised of disposition, agrees to [facility] for exam. Reviewed operating hours and that wait times vary. Protocol Used: Vomiting (Adult) Protocol-Based Disposition: See in Office or Video Visit Today Video visit offer not recorded Positive Triage Question: * Mild to Moderate vomiting (e.g., 1-5 times/day) and lasts > 48 hours (2 days) * All higher-acuity triage questions were negative Care Advice Discussed: * Reassurance and Education - Severe Vomiting * Clear Liquids * Reasons To Call Back - You become worse * Telephone Encounter - Sophia Pascal - 03/03/2023 2:37 PM EDT Tc from pt returning triage call Romansh speaker * Telephone Encounter - Lesly White RN - 03/03/2023 2:07 PM EDT Second attempt Call returned to patient for triage. No answer LVM to return call to [facility] triage line. * Telephone Encounter - Lesly White RN - 03/03/2023 1:33 PM EDT Call returned to patient for triage. No answer LVM to return call to [facility] triage line. Protocol Used: No Contact or Duplicate Contact Call (Adult) Protocol-Based Disposition: No Contact Call Positive Triage Question: * Message left on identified voicemail * All higher-acuity triage questions were negative * Telephone Encounter - Jeison Hoang - 03/03/2023 1:20 PM EDT Symptom: Vomiting Outcome: Talk to a nurse or provider within 15 minutes Reason: Severe headache, diarrhea The caller accepted this outcome Please contact at [phone] Romansh documented in this encounter Plan of Treatment Not on file documented as of this encounter Visit Diagnoses Not on filedocumented in this encounter Additional Health Concerns Assessment Noted Time PHQ-9 Depression Total Score: 8 12/10/19 23 1:13 PM EST documented as of this encounter Care Teams Turret Lathe Set Up Operator Relationship Specialty Start Date End Date Donna Sinclair FNP [address] [place] [address] PCP - General Family Medicine 07/23/22 Nafisa Garcia MD [address] [place] [address] Hematology and Oncology 11/11/24 documented as of this encounter
--- OUTSIDE RECORDS SUMMARY | 2024-12-22 14:41 | XMS_ITS | Encounter Summary ---
Author Organization [employer] Address [address] [facility] 7t [place] [address] Care Team Providers Care Hotel Housekeeper Name Role Phone Donna Sinclair Primary Care Provider [phone] Nafisa Garcia MD Unavailable [phone] Encounter Details Date Type Department Care Team (Latest Contact Info) Description 03/28/2023 Orders Only [facility] MEDICINE [address] [place] [address] Donna Sinclair FNP [address] [place] [address] Hypertriglyceridemia (Primary Dx) Social History Tobacco Use Types Packs/Day Years [...] suspected to have Coronavirus/COVID-19? No / Unsure 03/27/2023 10:55 AM EDT documented as of this encounter Plan of Treatment Not on file documented as of this encounter Visit Diagnoses Diagnosis Hypertriglyceridemia- Primary Pure hyperglyceridemia documented in this encounter Additional Health Concerns Assessment Noted Time PHQ-9 Depression Total Score: 8 12/10/19 23 1:13 PM EST documented as of this encounter Care Teams Hotel Housekeeper Relationship Specialty Start Date End Date Donna Sinclair FNP [address] [place] [address] PCP - General Family Medicine 07/23/22 Nafisa Garcia MD [address] [place] [address] Hematology and Oncology 11/11/24 documented as of this encounter
--- OUTSIDE RECORDS SUMMARY | 2024-12-22 14:41 | XMS_ITS | Encounter Summary ---
Author Organization [employer] Address [address] [facility] 7t [place] [address] Care Team Providers Care Assistant Corporate Controller Name Role Phone Donna Sinclair Primary Care Provider [phone] Nafisa Garcia MD Unavailable [phone] Reason for Visit * Reason Onset Date Comments Error 03/08/2024 Encounter Details Date Type Department Care Team ([facility] st Contact Info) Description 03/08/2024 Telephone [facility] MEDICINE [address] [place] [address] Donna Sinclair FNP [address] [place] [address] Error Social History Tobacco Use Types Packs/Day Years [...] with others, in a hotel, in a snf, living outside on the street, on a [...] per day Blood Pressure No Serafin Sue PharmAlicia Short-term: Promote adherence to treatment regimen General No Serafin Sue PharmD Take your medication every day Lifestyle No Serafin Sue PharmD documented as of this encounter Visit Diagnoses Not on filedocumented in this encounter Additional Health Concerns Assessment Noted Time PHQ-9 Depression Total Score: 14 023 3:26 PM EDT documented as of this encounter Care Teams Assistant Corporate Controller Relationship Specialty Start Date End Date Donna Sinclair FNP [address] [place] [address] PCP - General Family Medicine 07/23/22 Nafisa Garcia MD [address] [place] [address] Hematology and Oncology 11/11/24 documented as of this encounter
--- OUTSIDE RECORDS SUMMARY | 2024-12-22 14:41 | XMS_ITS | Encounter Summary ---
Author Organization [employer] Address [address] [facility] 7t [place] [address] Care Team Providers Care Lens Generating Machine Tender Name Role Phone Donna Sinclair Primary Care Provider [phone] Nafisa Garcia MD Unavailable [phone] Reason for Visit * Reason Onset Date Comments Call 2023 Encounter Details Date Type Department Care Team ([facility] st Contact Info) Description 2023 Telephone [facility] [address] [place] [address] Donna Sinclair FNP [address] [place] [address] Call Social History Tobacco Use Types Packs/Day Years [...] encounter Miscellaneous Notes * Telephone Encounter - Luis De Jesus - 02/24/2023 11:15 AM EDT Tc from pt requesting status on message previously sent. Please contact pt at [phone] * Telephone Encounter - Luis De Jesus - 2023 11:12 AM EDT Tc from pt requesting a call from us to facility were referral for Unitary was sent to. Pt states that facility needs Authorization Number, Expiration Date, and How many visits. Please contact facility at [phone] and #: [phone] Please contact pt at [phone] documented in this encounter Plan of Treatment Not on file documented as of this encounter Visit Diagnoses Not on filedocumented in this encounter Additional Health Concerns Assessment Noted Time PHQ-9 Depression Total Score: 8 12/10/19 23 1:13 PM EST documented as of this encounter Care Teams Lens Generating Machine Tender Relationship Specialty Start Date End Date Donna Sinclair FNP [address] [place] [address] PCP - General Family Medicine 07/23/22 Nafisa Garcia MD [address] [place] [address] Hematology and Oncology 11/11/24 documented as of this encounter
--- OUTSIDE RECORDS SUMMARY | 2024-12-22 14:41 | XMS_ITS | Encounter Summary ---
Author Organization [employer] Address [address] [facility] 7t [place] [address] Care Team Providers Care Oil Process Stillman Name Role Phone Donna Sinclair Primary Care Provider [phone] Nafisa Garcia MD Unavailable [phone] Reason for Visit * Reason Onset Date Comments FYI 12/06/2024 Encounter Details Date Type Department Care Team ([facility] st Contact Info) Description 12/06/2024 Telephone [facility] MEDICINE [address] [place] [address] Donna Sinclair FNP [address] [place] [address] FYI Social History Tobacco Use Types Packs/Day Years [...] encounter Miscellaneous Notes * Telephone Encounter - Manasa Garza LPN - 12/16/2024 12:35 PM EST Pa generated and faxed to ----- Message from Donna Sinclair sent at 12/16/2024 11:59 AM EST ----- She is not a good candidate for phentermine (medical concerns - documented in the note). I thought Wegovy wouldn't be covered if new start in 2024? If it will be, I can send that one in instead. Please let me know, thanks. ----- Message ----- From: Manasa Garza LPN Sent: 12/16/2024 11:37 AM EST To: [place] Pena Nicole. Prior to proceeding with the prior authorization, the patient must have attempted and not succeeded with an oral medication or Wegovy. Has the patient tried either option? I reviewed the chart but did not locate that information; I may have overlooked it. ----- Message ----- From: [place] Pena Sent: 12/16/2024 10:25 AM EST To: Manasa Garza LPN Please initiate PA for Zepbound, thanks! * Telephone Encounter - Olimpia Yugo - 12/06/2024 1:56 PM EST Tc from pt to inform that he will go to the office on 12/13. States nurse told her that she can give notice days in advance to change from a phone visit to an office visit. If any questions contact [phone] ([place] Sor[place]) documented in this encounter Plan of Treatment [...] Noted Time PHQ-9 Depression Total Score: 11 024 2:47 PM EST documented as of this encounter Care Teams Oil Process Stillman Relationship Specialty Start Date End Date Donna Sinclair FNP [address] [place] [address] PCP - General Family Medicine 07/23/22 Nafisa Garcia MD [address] [place] [address] Hematology and Oncology 11/11/24 documented as of this encounter
--- OUTSIDE RECORDS SUMMARY | 2024-12-22 14:41 | XMS_ITS | Encounter Summary ---
Author Organization [employer] Address [address] [facility] 7t [place] [address] Care Team Providers Care Clinical Applications Specialist Name Role Phone Donna Sinclair Primary Care Provider [phone] Nafisa Garcia MD Unavailable [phone] Reason for Visit * Reason Onset Date Comments Medication Question 05/03/2024 Encounter Details Date Type Department Care Team ([facility] Contact Info) Description 05/03/2024 Telephone [facility] CH[facility] MED & PEDS [address] [place], [place] [phone] Donna Sinclair FNP [address] [place] [address] Medication Question Social History Tobacco Use Types Packs/Day Years Used Date Smoking Tobacco: Never Smokeless Tobacco: Never Alcohol Use Standard Drinks/Week Comments Never 0 (1 standard drink = 0.6 oz pur e alcohol) Depression Answer Date Recorded Patient Health Questionnaire-9 Score 10 04/05/2024 Patient Health Questionnaire-9 Score 10 04/05/2024 Last PHQ-9: Questionnaire Data Not on file 0 04/05/2024 Housing Stability Answer Date Recorded What is your housing situation today? I do not have housing (Staying with others, in a hotel, in a care home, living outside on the street, on a [...] Date Recorded Patient Health Questionnaire-2 Score 2 04/05/2024 Comments Unknown Sex and Gender Information Value Date Recorded Sex Assigned at Female 09/30/2022 10:37 AM EDT Legal Sex Female 10:37 AM EDT Gender Identity Female 09/30/2022 10:37 AM EDT Sexual Orientation Straight 09/30/2022 10 :37 AM EDT documented as of this encounter Miscellaneous Notes * Telephone Encounter - Wing Christy RN - 05/04/2024 11:01 AM EDT Tc to pt and clarified that she is having a appt with Sleep Medicine, not a sleep study. Pt also isrequesting to switch for doxepin, 10 mg which is no longer on the pt's active med list but is the only one that helps her sleep to Ambien due to weight gain concerns. Gave pt appt for 05/21 at 8:30 am. Pt verbalized understanding and agreement with plan. * Telephone Encounter - [place] Pena - 05/03/2024 9:04 PM EDT Hi, please let pt know that referral should be for Sleep Medicine appt (appt with a provider), not a sleep study. They will be able to help adjust sleep medicines, and may order a sleep study if necessary. She is welcome to schedule a follow up appt with me as well if she would like to be seen before the Sleep Medicine consult, thank you. * Telephone Encounter - Munira Sheppard - 05/03/2024 11:26 AM EDT Tc from pt calling to inform referral for sleep study, appt was given for 09/06/24 and believes is to far out. Would also like to discuss changing medication ramelteon (Rozerem) 8 MG tablet due to having weight gain. documented in this encounter Plan of Treatment [...] Noted Time PHQ-9 Depression Total Score: 10 024 2:07 PM EDT documented as of this encounter Care Teams Clinical Applications Specialist Relationship Specialty Start Date End Date Donna Sinclair FNP [address] [place] [address] PCP - General Family Medicine 07/23/22 Nafisa Garcia MD [address] [place] [address] Hematology and Oncology 11/11/24 documented as of this encounter
--- OUTSIDE RECORDS SUMMARY | 2024-12-22 14:41 | XMS_ITS | Encounter Summary ---
Author Organization [employer] Address [address] [facility] [address]t [place] [address] Care Team Providers Care Web Design Specialist Name Role Phone DottieElverluis alfredo ALEJANDRA Primary Care Provider [phone] Nafisa Garcia MD Unavailable [phone] Encounter Details Date Type Department Care Team ([facility] st Contact Info) Description 07/30/2024 Orders Only [facility] MEDICINE [address] [place] [address] ProviderDilcia MD Social History Tobacco Use Types Packs/Day Years [...] documented as of this encounter Care Teams Web Design Specialist Relationship Specialty Start Date End Date Donna Sinclair FNP [address] [place] [address] PCP - General Family Medicine 07/23/22 Nafisa Garcia MD [address] [place] [address] Hematology and Oncology 11/11/24 documented as of this encounter
--- OUTSIDE RECORDS SUMMARY | 2024-12-22 14:41 | XMS_ITS | Encounter Summary ---
Author Organization [facility] Address [address] [facility] [address] [place] [address] Care Team Providers Care Attraction Attendant Name Role Phone Donna Sinclair [place] Primary Care Provider [phone] Nafisa Garcia MD Unavailable Reason for Visit * Reason Comments Med Refill Encounter Details Date Type Department Care Team ([facility] Contact Info) Description 12/03/2024 Refill C [facility] [address] [place], [place] [phone] Tutu Díaz MD [address] [place] [address] Social History Tobacco Use Types Packs/Day Years Used Date Smoking Tobacco: Never Smokeless Tobacco: Never Alcohol Use Standard Drinks/Week Comments Never 0 (1 standard drink = 0.6 oz pur e alcohol) Depression Answer Date Recorded Patient Health Questionnaire-9 Score 11 11/05/2024 Patient Health Questionnaire-9 Score 11 11/05/2024 Last PHQ-9: Questionnaire Data Not on file 1 01/06/2024 Housing Stability Answer Date Recorded What is [...] Date Recorded Patient Health Questionnaire-2 Score 3 11/05/2024 Comments Unknown Sex and Gender Information Value [...] documented as of this encounter Care Teams Attraction Attendant Relationship Specialty Start Date End Date Donna Sinclair FNP [address] [place] [address] PCP - General Family Medicine 07/23/22 Nafisa Garcia MD [address] [place] [phone] Hematology and Oncology 11/11/24 documented as of this encounter
--- OUTSIDE RECORDS SUMMARY | 2024-12-22 14:42 | XMS_ITS | Encounter Summary ---
Author Organization [facility] Address [address] [place] [address] Care Team Providers Care Photoflash Powder Mixer Name Role Phone Donna Sinclair market research coordinator Provider Reason for Visit * Reason Comments vaginal problems Encounter Details Date Type Department Care Team ([facility] Contact Info) Description 12/22/2024 11:15 AM EST Office Visit Obstetrics and Gynecology - [address] [phone] Valarie Sotomayor, [facility] [address] [place] [address] Arrived Social History Tobacco Use Types Packs/Day Years Used Date Smoking Tobacco: Never Smokeless Tobacco: Never Alcohol Use Standard Drinks/Week Comments Never 0 (1 standard drink = 0.6 oz pur e alcohol) Sex and Gender Information Value Date Recorded Sex Assigned at Female 11/02/2024 11:44 AM EST Gender Identity Female 11/02/2024 11:44 AM EST Sexual Orientation Choose not to disclose 2023 11:44 AM EST Job Start Date Occupation Industry Not on file Not on file Not on file documented as of this encounter Last Filed Vital Signs Vital Sign Reading Time Taken Comments Blood Pressure 136/66 12/22/2024 11:14 AM EST Pulse 66 12/22/2024 11:14 AM EST Temperature - - Respiratory Rate - - Oxygen Saturation - - Inhaled Oxygen Concentration - - Weight 86.4 kg (190 lb 6.4 oz) 12/22/2024 11:14 AM EST Height 160 cm (5' 3 ) 12/22/2024 11:14 AM EST Body Mass Index 33.73 12/22/2024 11:14 AM EST documented in this encounter Plan of Treatment Upcoming Encounters Date Type Department Care Team ([facility] st Contact Info) Description 07/25/2025 2:15 PM EDT Office Visit Pulmonolgy - [place] [address] [phone] Bárbara Askew MD [address] [address] documented as of this encounter Visit Diagnoses Not on filedocumented in this encounter Care Teams Photoflash Powder Mixer Relationship Specialty Start Date End Date Donna Sinclair RN [address] [address] PCP - General 04/21/23 documented as of this encounter
--- OUTSIDE RECORDS SUMMARY | 2024-12-22 14:42 | XMS_ITS | Clinical Summary ---
Author Organization [facility] [address] [facility] Address [address] [place] [address] Phone Care Team Providers Care Twisting Press Operator Name Role Phone Donna Sinclair RN Primary Care Provider Allergies Active Allergy Reactions Criticality Noted Date Comments Amlodipine Besylate Headache,Nausea And Vomiting 07/01/2011 Codeine 05/09/2011 Lisinopril Cough 07/01/2011 Oxycodone-Acetaminophen 05/09/2011 Medications Medication Sig Dispensed Refills Start Date End Date Status estradioL (Estring) 2 mg (7.5 mcg /24 hour) vaginal ring Place 1 Device vaginally Every 3 Months. 06/15/2024 Active estradioL (ESTRACE) 0.01 % (0.1 mg/gram) vaginal cream Sig: Apply to area twice weekly Sent to pharmacy as: Estradiol 0.1 MG/GM Vaginal Cream (ESTRACE VAGINAL) Active nitrofurantoin, macrocrystal-monohyd rate, (MACROBID) 100 mg capsule Sig - Route: Take 1 Capsule by mouth 2 times daily for 7 days. - Oral Sent to pharmacy as: Nitrofurantoin Monohyd Macro 100 MG Oral Capsule (Macrobid) Active clotrimazole-betamet hasone (LOTRISONE) 1-0.05 % cream APPLY TO AFFECTED AREA TWICE A DAY FOR 5 DAYS 06/15/2024 Active traMADoL (ULTRAM) 50 mg tablet Take 1 tablet (50 mg total) by mouth every 6 (six) hours if needed. Max Daily Amount: 200 mg 03/18/2024 Active solifenacin (VESICARE) 5 mg tablet Take 1 tablet (5 mg total) by mouth 1 (one) time each day. 02/26/2024 Active cephalexin (KEFLEX) 500 mg capsule Take 1 capsule (500 mg total) by mouth 2 (two) times a day. 02/20/2024 Active POLYETHYLENE GLYCOL MISC Take 17 g by mouth daily. 01/02/2024 Active mirabegron (Myrbetriq) 50 mg tablet extended release 24 hr 24 hr tablet Take 50 mg by mouth daily. 12/16/2023 Active atorvastatin (LIPITOR) 40 mg tablet 07/16/2021 Active valsartan (DIOVAN) 160 mg tablet Take 1 tablet (160 mg total) by mouth 1 (one) time each day. 11/08/2020 Active ibuprofen (ADVIL,MOTRIN) 400 mg tablet Take 1 Tab by mouth every 6 hours as needed for Pain. 11/08/2020 Active gabapentin (NEURONTIN) 300 mg capsule Take 1 Cap by mouth 2 times daily. 11/08/2020 Active pravastatin (PRAVACHOL) 40 mg tablet Take 1 tablet (40 mg total) by mouth 1 (one) time each day. 11/08/2020 Active hydroCHLOROthiazide (HYDRODIURIL) 25 mg tablet Take 1 tablet (25 mg total) by mouth 1 (one) time each day. 07/20/2020 Active mometasone (ELOCON) 0.1 % cream Apply once a day to the affected skin 01/24/2020 Active cholecalciferol (VITAMIN D-3) 50 mcg (2,000 unit) capsule Take 1 capsule (2,000 Units total) by mouth 1 (one) time each day. 01/24/2020 Active medical supply, miscellaneous (MISCELLANEOUS MEDICAL SUPPLY MISC) CPAP HISTORICAL (HISTORICAL CPAP) Sig - Route: Inhale into the lungs. [employer] pressure 6-12.6 - Inhalation Active Active Problems Problem Noted Date Diagnosed Date Reactive airway disease with acute exacerbation 10/05/2018 Allergic rhinitis 02/23/2018 Diabetes mellitus with renal manifestation 02/23 Inguinal hernia, right 02/23/2018 Microalbuminuria 02/23/2018 Peripheral neuropathy 02/23/2018 Diabetes mellitus with diabetic cataract 018 Vitamin D deficiency 02/23/2018 Back pain, chronic 02/11/2018 Arthralgia of right hip 08/27/2016 Obstructive sleep apnea 01/31/2015 Overview (09/17/2024): [facility] Home Polysomnogram: Date 12/07/2018; AHI 13, Unclassified apneas 0; Obstructive apneas 43; Central apneas 4; Mixed apneas 0; hypopneas 64; average oxygen saturation 93% (lowest 84% without saturations <88% for 5% or more of study) - Obstructive Sleep Apnea - mild; mostly hypopneas and obstructive apneas; without sleep related hypoventilation by 2018 home polysomnogram. 01/22/2017 to 02/20/2017. CPAP@ 6-16/Average 13.5/Max 14.5. 93% compliant with using the machine for >4 hours/day. Average use is 7 hours a night with AHI 1.1. 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 Depression 08/06/2011 GERD (gastroesophageal reflux disease) 1 Overview (09/17/2024): Normal EGD on PPI rx 08/11/2012. Anemia 05/09/2011 Overview (09/17/2024): Patient not sure of the etiology. Not sure of previous transfusions Anxiety 05/09/2011 Constipation 05/09/2011 Hyperlipidemia 05/09/2011 Hypertension 05/09/2011 Encounters Date Type Department Care Team Description 12/22/2024 11:15 AM EST Office Visit Obstetrics and Gynecology [address] [phone] Valarie Sotomayor CNM Arrived from Last 3 Months Immunizations Name Administration Dates Next Due Influenza Quadravalent, MDCK , 0.5ml, preservative free (Flucelvax) 6mo and older 11/16/2018 Influenza Quadravalent, MDCK , 0.5ml, with preservative (Flucelvax) 6mo and older 09/13/2019 Influenza trivalent, 0.5mL, preservative free (Fluarix; FluLaval; Fluzone) ages 6mo and older (Afluria) 3 years and older 09/18/2015,09/13/2014 Pneumococcal conjugate 13 va lent (Prevnar 13, PCV13) 2mo and older 08/28/2016 Pneumococcal polysaccharide 23 valent (Pneumovax 23) 2yo and older 09/13/2014 Tdap Tetanus diptheria acell ular pertussis (Boostrix; Adacel) 7yo and older 07/30/2016,05/15/2011 Surgical History Surgery Date Site/Laterality Comments TUBAL LIGATION PROCEDURE: HISTORICAL TUBAL LIGATION SECTION PROCEDURE: HISTORICAL ; COMMENT: x3 COLONOSCOPY 01/25/2009 PROCEDURE: HISTORICAL COLONOSCOPY; COMMENT: [facility] - external hemorrhoids, otherwise normal colonoscopy to the terminal ileum ESOPHAGOGASTRODUODENOSCOPY 01/25/2009 PROCEDURE: MS EGD TRANSORAL BIOPSY SINGLE/MULTIPLE; COMMENT: [facility] - mild bulbar duodenitis, biopsies were reportedly positive for H. pylori infection ESOPHAGOGASTRODUODENOSCOPY 08/11/2012 PROCEDURE: MS EGD TRANSORAL BIOPSY SINGLE/MULTIPLE; COMMENT: visually normal, duodenal bx obtained: normal ENDOMETRIAL ABLATION PROCEDURE: MS ENDOMETRIAL ABLTJ THERMAL W/O HYSTEROSCOPIC GUID EYE SURGERY PROCEDURE: HISTORICAL EYE SURGERY; COMMENT: 2013 - glaucoma BREAST SURGERY PROCEDURE: MS UNLISTED PROCEDURE BREAST; COMMENT: bilat reduction OTHER SURGICAL HISTORY PROCEDURE: ---- OTHER ----; COMMENT: gastric sleeve placed CATARACT EXTRACTION PROCEDURE: HISTORICAL CATARACT REMOVAL COLONOSCOPY 08/11/2012 PROCEDURE: HISTORICAL COLONOSCOPY; COMMENT: visually normal, random bx obtained: normal Medical History Medical History Date Comments Microalbuminuria 02/23/2018 DX:Microalbumin uria Anatomical narrow angle 08/30/2014 DX:Anato mical narrow angle Anemia 05/09/2011 DX:Anemia; COMME NT: Patient not sure of the etiology. Not sure of previous transfusions Anxiety 05/09/2011 DX:Anxiety Arthralgia of right hip 08/27/2016 DX:Arthr algia of right hip Historical Medical DX 01/05/2015 DX:ASCUS o n Pap smear; COMMENT: HPV negative-schedule colpo Cataract 08/30/2014 DX:Cataract Constipation 05/09/2011 DX:Constipation Depression 08/06/2011 DX:Depression Diabetes mellitus with diabe tic cataract (CMS/HCC) 02/23/2018 DX:Diabetes mellitus with di abetic cataract (HCC) Diabetes mellitus type 2 wit h neurological manifestations (CMS/HCC) 04/06/2014 DX:Diabetes jose itus type 2 with neurological manifestations (HCC) Diabetes mellitus with renal manifestation (CMS/HCC) 02/23/2018 DX:Diabetes mellitus with re nal manifestation (HCC) Diabetic retinopathy (CMS/HCC) 08/30/2014 D X:Diabetic retinopathy (HCC) Fatty liver 07/05/2013 DX:Fatty liver Fibromyalgia 08/15/2014 DX:Fibromyalgia GERD (gastroesophageal reflux disease) 05/15/2011 DX:GERD (gastroesophageal reflux disease); COMMENT: Normal EGD on PPI rx 08/11/2012. History of Clostridium difficile 09/05/2015 DX:History of Clostridium difficile; COMMENT: Mild diarrhea that resolved on 4 days of Flagyl History of gastric restrictive surgery 02/23/2018 DX:History of gastric restrictive surgery HTN (hypertension) 05/09/2011 DX:HTN (hyper tension) Hyperlipidemia 05/09/2011 DX:Hyperlipidemi a IBS (irritable bowel syndrome) 08/11/2012 D X:IBS (irritable bowel syndrome); COMMENT: Diarrhea predominant, onset approx age 45. Obstructive sleep apnea 01/31/2015 DX:Obstr uctive sleep apnea; COMMENT: 01/22/2017 to 02/20/2017. CPAP@ 6-16/Average 13.5/Max 14.5. 93% compliant with using the machine for >4 hours/day. Average use is 7 hours a night with AHI 1.1. 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 DX:Trichotillom karina Type 2 diabetes mellitus wit h eye manifestations (CMS/HCC) 05/17/2013 DX:Type 2 diabetes mellitus with eye manifestations (HCC) Inguinal hernia, right 02/23/2018 DX:Inguin al hernia, right Vitamin D deficiency 02/23/2018 DX:Vitamin D deficiency Allergic rhinitis 02/23/2018 DX:Allergic rh initis Back pain, chronic 02/11/2018 DX:Back pain, chronic History of herpes simplex infection 10/29/2010 DX:History of herpes simplex infection Hypertension 05/09/2011 DX:Hypertension Family History Medical History Relation Name Comments Colon polyps Father 50s Diabetes Mother cataract, thyro id disease Relation Name Status Comments Father (Age 69) HTN, hyper lipidemia, thyroid issues, CVA Mother Alive asthma, diabete s, CVA Social History Tobacco Use Types Packs/Day Years [...] file Not on file Not on file Obstetrics History Para Term AB IAB SAB Ectopic Multiple Livin g Live Births 4 3 3 1 1 3 3 Date Outcome GA Total Labor Labor/2nd/3rd Weight Sex Type Anes PTL Lara A1 A5 Name Clin IAB Term CS-Un spec Living Term CS-Un spec Living Term CS-Un spec Living Last Filed Vital Signs Vital Sign Reading [...] Mass Index 33.73 12/22/2024 11:14 AM EST Plan of Treatment Upcoming Encounters Date Type Department Care Team (Late st Contact Info) Description 07/25/2025 2:15 PM EDT Office Visit [facility] [address] [facility] [address] [place] [address] Bárbara Askew MD [address] [place] [phone] Health Maintenance Due Date Last Done Comments Diabetes: Annual Foot Exam 02/17/1970 Diabetes: Annual Retina Eye Exam 02/17/1970 Zoster Vaccines (1 of 2) 02/17/2010 RSV Immunization Patients 60+ Years Old (1 - Risk 60-74 years 1-dose series) 2020 Diabetes: Annual GFR (Glomerular Filtration Rate) 07/20/2021 07/20/2020 Colorectal Cancer Screening: Colonoscopy 11/09/2022 Depression Screening 11/09/2022 Social Influencers of Health Screening 11/09/2022 Diabetes: Annual Urine Albumin-Creatinine Ratio (uACR) 11/16/2022 07/19/2015 Hypertension/CHF/CAD Annual BMP Blood Test 11/16/2022 07/20/2020 Diabetes: Blood Sugar Control Test (HGBA1C) 03/30/2024 09/29/2023, 07/20/2020 COVID-19 Vaccine ( season) 2024 Influenza Vaccine (#1) 2024 , 09/04/2021, 08/20/2020, Additional history exists Hepatitis B Vaccines (3 of 3 - 19+ 3-dose series) 08/04/2024 05/21/2024, 02/02/2024 Breast Cancer Screening 02/05/2025 02/05/2023 Pneumococcal Vaccine: Pediatrics (0 to 5 Years) and At-Risk Patients (6 to 64 Years) (3 of 3 - PPSV23 or PCV20) 02/17/2025 08/28/2016, 09/13/2014 DTaP,Tdap,and Td Vaccines (3 - Td or Tdap) 07/30/2026 07/30/2016, 05/15/2011 Cervical Cancer Screening: HPV 12/31/2026 12/31/2021 Cholesterol Screening (Lipid Panel) 05/21/2029 05/21/2024, 07/20/2020 HIV Screening Completed 07/22/2011 Hepatitis C Screening Completed 12/17/2022, 011 HIB Vaccines Aged Out No longer eligi ble based on patient's age to complete this topic HPV Vaccines Aged Out No longer eligi ble based on patient's age to complete this topic Hepatitis A Vaccines Aged Out No long er eligible based on patient's age to complete this topic IPV Vaccines Aged Out No longer eligi ble based on patient's age to complete this topic MMR Vaccines Aged Out No longer eligi ble based on patient's age to complete this topic Meningococcal ACWY Vaccine Aged Out N o longer eligible based on patient's age to complete this topic RSV Immunization Patients Under 20 months Aged Out No longer eligible based on patient's age to complete this topic Varicella Vaccines Aged Out No longer eligible based on patient's age to complete this topic Procedures Procedure Name Priority Date/Time Associated Diagnosis Comments FANTA SCREENING DIGITAL Routine 02/05/2023 10:04 AM EST Encounter for screening mammogram for malignant neoplasm of breast HPV Routine 12/31/2021 ANNUAL BMP BLOOD TEST Routine 07/20/2020 HEMOGLOBIN A1C Routine 07/20/2020 LIPID PANEL Routine 07/20/2020 URINE ALBUMIN CREATININE RATIO Routine 07/19/2015 HEPATITIS C SCREENING Routine 07/22/2011 HIV SCREENING Routine 07/22/2011 from Last 3 Months or Most Recently Relevant to Health Maintenance Results * FANTA SCREENING DIGITAL (02/05/2023 10:04 AM EST) Anatomical Region Laterality Modality Mammography 02/04/2023 3:25 PM EST Narrative 02/05/2023 10:04 AM EST [facility] Diagnostic Imaging Department [address] [place] [id number] Patient: ??MATEUS BLANKENSHIP ?/Age/Sex: 1960 - 62 - F Unit#: ??[id number] ? Location/Status: ??SPDIMAM/REG CLI ? Mnemonic/Ordering Site: ??DIGSC/SPMAM Ordering Physician: ??CAROLINA RM CNM Fanta Screening Digital - 02/04/23 - 1538 INDICATION: SCREENING COMPARISON: [facility] and outside mammograms dating back to 02/07/2010 TECHNIQUE: CC and MLO views of the breasts were obtained, using full field digital mammography with 3D tomosynthesis views in the MLO projection. Computer aided detection with the [employer] 7.2-H was employed. FINDINGS: The breasts contain scattered fibroglandular tissues. Reduction mammoplasty and multiple noncalcified nodular asymmetries bilaterally similar to the prior exam. No suspicious masses, suspicious microcalcifications, or areas of architectural distortion are identified. ??There are no secondary signs of breast malignancy. IMPRESSION: ??No specific mammographic evidence of breast malignancy. Lack of an imaging correlate should not deter or delay biopsy of a clinically significant palpable finding. BI-RADS ??- Category 2 - Benign finding 3342F, 7025F Annual screening mammography is recommended. Patient entered into a reminder system with a target date for the next mammogram. ([id number] / [id number]) , ??[id number] Dictating Physician: ??ESE MADDOX MD Electronically Signed by: ??ESE MADDOX MD Dic Date/Time: ??02/05/23 0959 Sign date/Time: ??02/05/23 1004 Procedure Note Ese Maddox MD - 01/02/2024 [facility] Diagnostic Imaging Department [address] [place] [id number] Patient: MATEUS BLANKENSHIP D.O.B./Age/Sex: 1960 - 62 - F Unit#: [id number] Location/Status: SPDIMA/REG CLI Mnemonic/Ordering Site: [facility] Ordering Physician: CAROLINA RM CNM Fanta Screening Digital - 02/04/23 - 1538 INDICATION: SCREENING COMPARISON: [facility] and outside mammograms dating back to 02/07/2010 TECHNIQUE: CC and MLO views of the breasts were obtained, using full field digital mammography with 3D tomosynthesis views in the MLO projection. Computer aided detection with the [employer] 7.2-H was employed. FINDINGS: The breasts contain scattered fibroglandular tissues. Reduction mammoplasty and multiple noncalcified nodular asymmetriesbilaterally similar to the prior exam. No suspicious masses, suspicious microcalcifications, or areas ofarchitectural distortion are identified. There are no secondary signs of breastmalignancy. IMPRESSION: No specific mammographic evidence of breast malignancy. Lack of an imaging correlate should not deter or delay biopsy of aclinically significant palpable finding. BI-RADS - Category 2 - Benign finding 3342F, 7025F Annual screening mammography is recommended. Patient entered into a reminder system with a target date for the next mammogram. ([id number] / [id number]) , [id number] Dictating Physician: ESE MADDOX MD Electronically Signed by: ESE MADDOX MD Dic Date/Time: 02/05/23 0959 Sign date/Time: 02/05/23 1004 Carolinalesley Rm JAKY IMG BI PROCEDURES * Cervical Cancer Screening: HPV (12/31/2021) [facility] Cervical Cancer Screening: HPV negative, abstracted Historical Provider MD ROSMERY WELCH * Annual BMP Blood Test (07/20/2020) [facility] Annual BMP Blood Test abstracted Historical Provider MD BOTELLO IPM FranceLOREN E * Hemoglobin A1c (07/20/2020) [facility] Hemoglobin A1C 5.9 6.5 % Blood Venous blood specimen / Unknown Historical Provider LAB BLOOD ORDERAB LES * (ABNORMAL) Lipid panel (07/20/2020) [facility] LDL/HDL Ratio 6(A) 0 - 4 Triglycerides 315(A) 0 - 150 mg/dL Cholesterol 212(A) 0 - 200 mg/dL HDL 37(A) 40 mg/dL LDL Cholesterol 112(A) 0 - 100 mg/dL Blood Venous blood specimen / Unknown Historical Provider LAB BLOOD ORDERAB LES * Urine Albumin Creatinine Ratio (07/19/2015) [facility] Urine Albumin Creatinine Ratio abstracted Historical Provider MD ROSMERY WELCH * HIV Screening (07/22/2011) [facility] HIV Screening abstracted Historical Provider MD ROSMERY WELCH * Hepatitis C Screening (07/22/2011) [facility] Hepatitis C Screening abstracted Historical Provider MD ROSMERY Howard from Last 3 Months or Most Recently Relevant to Health Maintenance Care Teams Twisting Press Operator Relationship Specialty Start Date End Date Donna Sinclair RN [address] [address] PCP - General 04/21/23
[2024-12-22 15:00] LABS: TSH reflex Free T4 1.49 uIU/mL (0.32-4.0); Vitamin D 25-OH Total 36.3 ng/mL (>30)
== END 2024-12-22 12:52 | disposition home or self-care (01) ==
LOC: HO.CHCLDS 12:51
PROVIDERS: Registered Nurse; Visit Provider Registered Nurse
DX: R53.83 Other fatigue (principal); F41.9 Anxiety disorder, unspecified; R14.0 Abdominal distension (gaseous)
CPT/HCPCS: 80053; 80061; 80307; 82306; 83036; 83735; 84443; 87338

== ENCOUNTER 2025-03-29 10:21 | Outpatient (REF) | payer MEDICAID, SELFPAY ==
--- OUTSIDE RECORDS SUMMARY | 2025-03-29 11:51 | XMS_ITS | Clinical Summary ---
Author Organization [facility] [address] [facility] Address [address] [place] [address] Phone Care Team Providers Care Barrel Brander Name Role Phone Donna Sinclair RN Primary Care Provider Allergies Active Allergy Reactions Criticality Noted Date Comments Acetaminophen 03/21/2021 Other reaction(s): Vomiting Amlodipine Besylate Headache,Nausea And Vomiting 07/01/2011 Bupropion Other 12/24/2022 BP increase and palpitations Codeine 05/09/2011 Lisinopril Cough 07/01/2011 Oxycodone-Acetaminophen 05/09/2011 Medications estradioL (Estring) 2 mg (7.5 mcg /24 hour) vaginal ring Place 1 Device vaginally Every 3 Months. 4 Active estradioL (ESTRACE) 0.01 % (0.1 mg/gram) vaginal cream Sig: Apply to area twice weekly Sent to pharmacy as: Estradiol 0.1 MG/GM Vaginal Cream (ESTRACE VAGINAL) Active cholecalciferol (VITAMIN D-3) 50 mcg (2,000 unit) capsule Take 1 capsule (2,000 Units total) by mouth 1 (one) time each day. 0 Active medical supply, miscellaneous (MISCELLANEOUS MEDICAL SUPPLY MISC) CPAP HISTORICAL (HISTORICAL CPAP) Sig - Route: Inhale into the lungs. [employer] pressure 6-12.6 - Inhalation Active albuterol HFA (PROVENTIL HFA;VENTOLIN HFA) 108 (90 Base) MCG/ACT inhaler Inhale 2 puffs by mouth every 4 (four) hours if needed for shortness of breath. 8 Active ascorbic acid (VITAMIN C) 1,000 mg tablet Take 1 tablet (1,000 mg total) by mouth daily. Active clobetasoL (TEMOVATE) 0.05 % cream Apply to area twice weekly 3 Active clotrimazole (LOTRIMIN) 1 % cream 2 (two) times a day. Active doxepin (SINEquan) 10 mg capsule Take 1 capsule (10 mg total) by mouth at bedtime. at bedtime 4 Active fenofibrate micronized (ANTARA) 43 mg capsule Take 1 capsule (43 mg total) by mouth 1 (one) time each day with breakfast. Active fluticasone propionate (Flonase Allergy Relief) 50 mcg/actuation nasal spray Administer 1 spray into each nostril 2 (two) times a day. 1 Active simvastatin (ZOCOR) 20 mg tablet Take 1 tablet (20 mg total) by mouth at bedtime. 5 Active simethicone 250 mg capsule Take 1 capsule by mouth 2 (two) times a day if needed. 4 Active Gavilax 17 gram/dose oral powder Take 17 g by mouth 1 (one) time each day. Active hydrOXYzine HCL (ATARAX) 25 mg tablet Take 1 tablet (25 mg total) by mouth 3 times daily as needed. 5 Active ketoconazole (NIZORAL) 2 % shampoo Apply topically 2 (two) times a week. 3 Active ferrous sulfate 325 mg (65 mg elemental iron) tablet Take 1 tablet (325 mg total) by mouth every other day. 2 Active lidocaine (LIDODERM) 5 % patch Apply 1 patch topically 1 (one) time each day. Active loratadine (CLARITIN) 10 mg tablet Take 1 tablet (10 mg total) by mouth as needed. 4 Active losartan-hydroCHL OROthiazide (HYZAAR) 100-25 mg per tablet Take 1 tablet by mouth 1 (one) time each day in the morning. 5 Active metFORMIN XR (GLUCOPHAGE-XR) 500 mg 24 hr tablet Take 1 tablet (500 mg total) by mouth 1 (one) time each day with dinner. Active metoprolol succinate (TOPROL-XL) 25 mg 24 hr tablet Take 1 tablet (25 mg total) by mouth 1 (one) time each day. 4 Active minoxidiL (LONITEN) 2.5 mg tablet Take 1 tablet (2.5 mg total) by mouth 1 (one) time each day in the morning. Active levothyroxine (SYNTHROID, LEVOTHROID) 25 mcg tablet Take 1 tablet (25 mcg total) by mouth 1 (one) time each day before breakfast. Active ibuprofen (ADVIL,MOTRIN) 600 mg tablet Take 1 tablet (600 mg total) by mouth every 8 (eight) hours if needed for moderate pain or fever - temperature GREATER than 38 C (100.4 F). 3 Active vitamin E, dl,tocopheryl acet, (vitamin E, dl, acetate,) 180 mg (400 unit) capsule Take 1 capsule (400 Units total) by mouth daily. Active magnesium gluconate (Mag-G) 27 mg magnesium (500 mg) tablet Take 1 tablet (27 mg total) by mouth 1 (one) time each day. Active potassium gluconate 600 mg (99 mg) tablet Take 1 tablet by mouth daily. Active gabapentin (NEURONTIN) 400 mg capsule Take 1 capsule (400 mg total) by mouth 2 (two) times a day. Active Active Problems Problem Noted Date Diagnosed Date Reactive airway disease with acute exacerbation 10/05/2018 Allergic rhinitis 02/23/2018 Diabetes mellitus with renal manifestation ([facility] V24, [facility] V28) 02/23/2018 Inguinal hernia, right 02/23/2018 Microalbuminuria 02/23/2018 Peripheral neuropathy 02/23/2018 Diabetes mellitus with diabe tic cataract ([facility] V24, [facility] V28) 02/23/2018 Vitamin D deficiency 02/23/2018 Back pain, chronic 02/11/2018 Arthralgia of right hip 08/27/2016 Obstructive sleep apnea 01/31/2015 Overview (09/17/2024): [facility] Home Polysomnogram: Date 12/07/2018; AHI 13, Unclassified apneas 0; Obstructive apneas 43; Central apneas 4; Mixed apneas 0; hypopneas 64; average oxygen saturation 93% (lowest 84% without saturations <88% for 5% or more of study) - Obstructive Sleep Apnea - mild; mostly hypopneas and obstructive apneas; without sleep related hypoventilation by 2019 home polysomnogram. 01/22/2017 to 02/20/2017. CPAP@ 6-16/Average 13.5/Max 14.5. 93% compliant with using the machine for >4 hours/day. Average use is 7 hours a night with AHI 1.1. Atypical squamous cells of u ndetermined significance (ASCUS) on Papanicolaou smear of cervix 01/05/2015 Overview (09/17/2024): HPV negative-schedule colpo Anatomical narrow angle 08/30/2014 Cataract 08/30/2014 Diabetic retinopathy ([facility] V24, [facility] V28) 08/30/2014 Fibromyalgia 08/15/2014 Diabetes mellitus type 2 wit h neurological manifestations ([facility] V24, [facility] V28) 04/06/2014 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 [address] [place] [address] Rosaura Lange MD special procedure 02/10/2025 Telephone Gastroenterology - [place] 175 [facility] 175 [facility] [address] [place] [address] Rosaura Lange MD information needed from Last 3 Months Immunizations Name Administration [...] to the terminal ileum ESOPHAGOGASTRODUODENOSCOPY 01/25/2009 PROCEDURE: [place] EGD TRANSORAL BIOPSY SINGLE/MULTIPLE; COMMENT: [facility] - mild bulbar duodenitis, biopsies were reportedly positive for H. pylori infection ESOPHAGOGASTRODUODENOSCOPY 08/11/2012 PROCEDURE: IL EGD TRANSORAL BIOPSY SINGLE/MULTIPLE; COMMENT: visually normal, duodenal bx obtained: normal ENDOMETRIAL ABLATION PROCEDURE: IL ENDOMETRIAL ABLTJ THERMAL W/O HYSTEROSCOPIC GUID EYE SURGERY PROCEDURE: HISTORICAL EYE SURGERY; COMMENT: 2013 - glaucoma BREAST SURGERY PROCEDURE: [place] UNLISTED PROCEDURE BREAST; COMMENT: bilat reduction OTHER [...] DX:Depression Diabetes mellitus with diabe tic cataract ([facility] V24, [facility] V28) 02/23/2018 DX:Diabetes mellit us with diabetic cataract (HCC) Diabetes mellitus type 2 wit h neurological manifestations (CMS/HCC V24, [facility]/HCC V28) 04/06/2014 DX:Diabetes mellitus type 2 with neurological manifestations (HCC) Diabetes mellitus with renal manifestation (CMS/HCC V24, [facility]/HCC V28) 02/23/2018 DX:Diabetes mellitus with re nal manifestation (HCC) Diabetic retinopathy ([facility]/ C V24, CMS/HCC V28) 08/30/2014 DX:Diabetic retinopathy (HCC ) Fatty liver 07/05/2013 DX:Fatty liver Fibromyalgia 08/15/2014 [...] 2 diabetes mellitus wit h eye manifestations (CMS/HCC V24, CMS/HCC V28) 05/17/2013 DX:Type 2 diabetes mellitus with eye [...] drink = 0.6 oz pur e alcohol) Comments No Sex and Gender Information Value Date Recorded Sex Assigned at Female 11/02/2024 11:44 AM EST Legal Sex Female 5:43 PM EST Gender Identity Female 11/02/2024 11:44 AM EST Sexual Orientation Choose not to disclose 2023 11:44 AM EST Obstetrics History Para Term AB IAB SAB Ectopic Multiple Livin g Live Births 4 3 3 1 1 3 3 Date Outcome GA Total Labor Labor//3rd Weight Sex Type Anes PTL Lara A1 [...] Care Team (Late st Contact Info) Description 05/24/2025 1:00 PM EDT Appointment [facility] Endoscopy [address] [place] [address] Rosaura Lange MD 175 [facility] Joe [address] [place] [address] 07/25/2025 2:15 PM EDT Office Visit Pulmonolgy - [place] [address] [id number] Bárbara Askew MD [address] [address] Health Maintenance Due Date Last Done Comments Diabetes: Annual Foot Exam 02/17/1970 Diabetes: Annual Retina Eye Exam 02/17/1970 Zoster Vaccines (1 of 2) 02/17/2010 RSV Immunization Adult Patients (1 - Risk 60-74 years 1-dose series) 2020 Diabetes: Annual GFR (Glomerular Filtration Rate) 07/20/2021 07/20/2020 Pneumococcal Vaccine: 50+ Years (3 of 3 - PCV20 or PCV21) 08/28/2021 08/28/2016, 09/13/2014 Pneumococcal Vaccine: Pediatrics (0 to 5 Years) and At-Risk Patients (6 to 64 Years) (3 of 3 - PCV20 or PCV21) 08/28/2021 08/28/2016, 09/13/2014 Colorectal Cancer Screening: Colonoscopy 11/09/2022 08/11/2012 Medicare Annual Wellness Visit 11/09/2022 Osteoporosis Screening (Bone Density Screening) 11/09/2022 Social Influencers of Health Screening 11/09/2022 Diabetes: Annual Urine Albumin-Creatinine Ratio (uACR) 11/16/2022 07/19/2015 Hypertension/CHF/CAD Annual BMP Blood Test 11/16/2022 07/20/2020 Diabetes: Blood Sugar Control Test (HGBA1C) 03/30/2024 09/29/2023, 07/20/2020 COVID-19 Vaccine ( season) 2024 Hepatitis B Vaccines (3 of 3 - 19+ 3-dose series) 08/04/2024 05/21/2024, 02/02/2024 Breast Cancer Screening 02/05/2025 02/05/2023 Falls Risk Assessment 02/17/2025 Influenza Vaccine (Season Ended) 2025 09/22/2023, 09/04/2021, 08/20/2020, Additional history exists Depression Screening 12/13/2025 12/13/2024 DTaP,Tdap,and Td Vaccines (3 - Td or Tdap) 07/30/2026 07/30/2016, 05/15/2011 Cervical Cancer Screening: HPV 12/31/2026 12/31/2021 Cholesterol Screening (Lipid Panel) 05/21/2029 05/21/2024, 07/20/2020 Hepatitis C Screening Completed 12/17/2022, 011 HIB [...] patient's age to complete this topic Meningococcal B Vaccine Aged Out No l onger eligible based on patient's age to complete [...] Routine 07/19/2015 HEPATITIS C SCREENING Routine 07/22/2011 from Last 3 Months or Most Recently Relevant to Health Maintenance Results * FANTA SCREENING DIGITAL (02/05/2023 10:04 AM EST) Anatomical Region Laterality Modality Mammography 02/04/2023 3:25 PM EST Narrative 02/05/2023 10:04 AM EST [facility] Diagnostic Imaging Department [address] [place] [address] Patient: ??KRZYSZTOF,MATEUS ?/Age/Sex: 1960 - 62 - F Unit#: ??[id number] ? Location/Status: ??SPDIMAM/REG CLI ? Mnemonic/Ordering Site: ??DIGSC/SPMAM Ordering Physician: ??CAROLINA RM CNM Fanta Screening Digital - 02/04/23 - 1538 INDICATION: SCREENING COMPARISON: [facility] and outside mammograms dating back to 02/07/2010 TECHNIQUE: CC and MLO views of the breasts were obtained, using full field digital mammography with 3D tomosynthesis views in the MLO projection. Computer aided detection with the iCAD SecondLook 7.2-H was employed. FINDINGS: The breasts contain [...] date for the next mammogram. (G0202 / [id number]) , ??[id number] Dictating Physician: ??ESE MADDOX MD Electronically Signed by: ??ESE MADDOX MD Dic Date/Time: ??02/05/23 0959 Sign date/Time: ??02/05/23 1004 Procedure Note Ese Maddox MD - 01/02/2024 [facility] Diagnostic Imaging Department [address] [place] [address] Patient: MATEUS BLANKENSHIP /Age/Sex: 1960 - 62 - F Unit#: [id number] [facility] Mnemonic/Ordering Site: [facility] Ordering Physician: CAROLINA RM CNM Fanta Screening Digital - 02/04/23 - 2610 INDICATION: SCREENING COMPARISON: [facility] and outside mammograms dating back to 02/07/2010 TECHNIQUE: CC and MLO views of the breasts were obtained, using full field digital mammography with 3D tomosynthesis views in the MLO projection. Computer aided detection with the Free & Clear 7.2-H was employed. FINDINGS: The breasts contain [...] a target date for the next mammogram. [id number] [id number]) , [id number] Dictating Physician: ESE MADDOX MD Electronically Signed by: ESE MADDOX MD Dic Date/Time: 02/05/23 0959 Sign date/Time: 02/05/23 1005 Result [facility] Carolina Rm CNM IMG BI PROCEDURES Final Result * Cervical Cancer Screening: HPV (12/31/2021) [facility] Cervical Cancer Screening: HPV negative, abstracted [facility] Provider HEALTH MAINTENANCE Final Result * Annual BMP Blood Test (07/20/2020) [facility] Annual BMP Blood Test abstracted Result [facility] Provider HEALTH MAINTENANCE Final Result * Hemoglobin A1c (07/20/2020) [facility] Hemoglobin A1C 5.9 <=6.5 % Blood Venous blood specimen / Unknown Result [facility] Provider LAB BLOOD ORDERABLES Mary l Result * (ABNORMAL) Lipid panel (07/20/2020) [facility] LDL/HDL Ratio 6(A) 0 - 4 Triglycerides 315(A) 0 - 150 mg/dL Cholesterol 212(A) 0 - 200 mg/dL HDL 37(A) >=40 mg/dL LDL Cholesterol 112(A) 0 - 100 mg/dL Blood Venous blood specimen / Unknown Historical Provider LAB BLOOD ORDERABLES Mary l Result * Urine Albumin Creatinine Ratio (07/19/2015) Urine Albumin Creatinine Ratio abstracted Historical Provider HEALTH MAINTENANCE Final Result * Hepatitis C Screening (07/22/2011) Hepatitis C Screening abstracted [facility] Provider HEALTH MAINTENANCE Final Result from Last 3 Months or Most Recently Relevant to Health Maintenance Insurance MEDICAID - [place] MEDICARE Care Teams Barrel Brander Relationship Specialty Start Date End Date Donna Sinclair RN [address] [address] [facility] - General 04/21/23
--- OUTSIDE RECORDS SUMMARY | 2025-03-29 11:51 | XMS_ITS | Encounter Summary ---
Author Organization [employer] Address [address] [facility] 7t [place] [address] Care Team Providers Care Olive Pitter Name Role Phone Donna Sinclair [place] Primary Care Provider [phone] Nafisa Garcia MD Unavailable [phone] Reason for Visit * Reason Comments Med Change Request Encounter Details Date Type Department Care Team ([facility] Contact Info) Description 03/28/2025 Refill [facility] MED [facility]EDS [address] [place], [place] [phone] Indiana Spivey MD [address] [place] [address] Social History Tobacco Use Types Packs/Day Years Used Date Smoking Tobacco: Never Smokeless Tobacco: Never Alcohol Use Standard Drinks/Week Comments Never 0 (1 standard drink = 0.6 oz pur e alcohol) Depression Answer Date Recorded Patient Health Questionnaire-9 Score 8 01/10/2025 Patient Health Questionnaire-9 Score 8 01/10/2025 Last PHQ-9: Questionnaire Data Not on file 0 01/10/2025 Housing Stability Answer Date Recorded What is [...] Date Recorded Patient Health Questionnaire-2 Score 2 01/10/2025 Comments Unknown Sex and Gender Information Value Date Recorded Sex Assigned at Female 09/30/2022 10:37 AM EDT Legal Sex Female 10:37 AM EDT Gender Identity Female 09/30/2022 10:37 AM EDT Sexual Orientation Straight 09/30/2022 10 :37 AM EDT documented as of this encounter Plan of Treatment Upcoming Encounters Date Type Department Care Team (Late st Contact Info) Description 05/02/2025 3:15 PM EDT Office Visit [facility] MED & PEDS [address] [place] [address] Donna Sinclair FNP [address] [place] [address] 05/31/2025 10:15 AM EDT Office Visit [facility] MED & PEDS [address] [place] [address] Travis Gillette MD [address] [place] [address] documented as of this encounter Goals Goal [...] Noted Time PHQ-9 Depression Total Score: 8 01/10/20 25 3:34 PM EST documented as of this encounter Care Teams Olive Pitter Relationship Specialty Start Date End Date Donna Sinclair FNP [address] [place] [address] PCP - General Family Medicine 07/23/22 Nafisa Garcia MD [address] [place] [address] Hematology and Oncology 11/11/24 documented as of this encounter
--- OUTSIDE RECORDS SUMMARY | 2025-03-29 11:51 | XMS_ITS | Encounter Summary ---
Author Organization [employer] Address 75 [facility] 7t [place] [address] Care Team Providers Care Facilities Management Executive Name Role Phone Donna Sinclair Primary Care Provider [phone] Nafisa Garcia MD Unavailable [phone] Reason for Visit * Reason Onset Date Comments Error 03/08/2024 Encounter Details Date Type Department Care Team ([facility] st Contact Info) Description 03/08/2024 Telephone [facility] MEDICINE [address] [place] [address] Donna Sinclair FNP [address] [place] [address] Error Social History Tobacco Use Types Packs/Day [...] with others, in a hotel, in a custodial, living outside on the street, on a [...] Description 05/02/2025 3:15 PM EDT Office Visit [facility] MED & PEDS [address] [place] [address] Donna Sinclair FNP [address] [place] [address] 05/31/2025 10:15 AM EDT Office Visit [facility] MED & PEDS [address] [place] [address] Travis Gillette MD 505 [place] [address] documented as of this encounter Goals Goal [...] documented as of this encounter Care Teams Facilities Management Executive Relationship Specialty Start Date End Date Donna Sinclair FNP [address] [place] [address] PCP - General Family Medicine 07/23/22 Nafisa Garcia MD [address] [place] [address] Hematology and Oncology 11/11/24 documented as of this encounter
--- OUTSIDE RECORDS SUMMARY | 2025-03-29 11:51 | XMS_ITS | Encounter Summary ---
Author Organization [employer] Address [address] [place] [address] 7t [place] [address] Care Team Providers Care Administrative Support Coordinator Name Role Phone Donna Sinclair Primary Care Provider [phone] Nafisa Garcia MD Unavailable [phone] Reason for Visit * Reason Comments Med Refill Encounter Details Date Type Department Care Team (Late Contact Info) Description 08/28/2023 Refill [facility] MEDICINE [address] [place], [place] [phone] Donna Sinclair FNP [address] [place] [address] Social History Tobacco Use Types Packs/Day Years [...] Encounters Date Type Department Care Team (Late Contact Info) Description 05/02/2025 3:15 PM EDT Office Visit [facility] CHC MED & PEDS [address] [place], [place] [phone] Donna Sinclair FNP [address] [place], [place] [phone] 05/31/2025 10:15 AM EDT Office Visit [facility] CHC MED & PEDS [address] [place] [address] Travis Gillette MD [address] [place] [address] documented as of this encounter Goals Goal [...] documented as of this encounter Care Teams Administrative Support Coordinator Relationship Specialty Start Date End Date Donna Sinclair FNP [address] [place] [address] PCP - General Family Medicine 07/23/22 Nafisa Garcia MD [address] [place] [address] Hematology and Oncology 11/11/24 documented as of this encounter
--- OUTSIDE RECORDS SUMMARY | 2025-03-29 11:51 | XMS_ITS | Encounter Summary ---
Author Organization [employer] Address 75 [facility] 7[address] [place] [address] Care Team Providers Care Routing Equipment Tender Name Role Phone Donna Sinclair Primary Care Provider [phone] Nafisa Garcia MD Unavailable [phone] Reason for Visit * Reason Onset Date Comments Appointment Request 03/24/2025 Encounter Details Date Type Department Care Team ([facility] st Contact Info) Description 03/24/2025 Telephone [facility] MEDICINE [address] [place] [address] Donna Sinclair FNP [address] [place] [address] Appointment Request Social History Tobacco Use Types Packs/Day Years [...] encounter Miscellaneous Notes * Telephone Encounter - Rema Caballero - 03/24/2025 2:24 PM EDT Tc from pt requesting appointment with Dem regarding itchy head Contact pt at [phone] documented in this encounter Plan of Treatment Upcoming Encounters Date Type Department Care Team (Late st Contact Info) Description 05/02/2025 3:15 PM EDT Office Visit [facility] MED & PEDS [address] [place] [address] Donna Sinclair FNP [address] [place] [address] 05/31/2025 10:15 AM EDT Office Visit [facility] MED & PEDS [address] [place] [address] Travis Gillette MD [address] [place] [address] documented as of this encounter Goals Goal [...] documented as of this encounter Care Teams Routing Equipment Tender Relationship Specialty Start Date End Date Donna Sinclair FNP [address] [place] [address] PCP - General Family Medicine 07/23/22 Nafisa Garcia MD [address] [place] [address] Hematology and Oncology 11/11/24 documented as of this encounter
--- OUTSIDE RECORDS SUMMARY | 2025-03-29 11:51 | XMS_ITS | Encounter Summary ---
Author Organization [employer] Address [address] [facility] 7t [place] [address] Care Team Providers Care Floor Framer Name Role Phone Donna Sinclair Primary Care Provider [phone] Nafisa Garcia MD Unavailable [phone] Reason for Visit * Reason Onset Date Comments Nurse Triage 03/24/2025 Encounter Details Date Type Department Care Team ([facility] st Contact Info) Description 03/24/2025 Telephone [facility] MEDICINE [address] [place] [address] Donna Sinclair FNP [address] [place] [address] Nurse Triage Social History Tobacco Use Types Packs/Day Years [...] encounter Miscellaneous Notes * Telephone Encounter - Allison Corley RN - 03/24/2025 3:47 PM EDT called pt to triage, spoke to pt. pt states generalized headaches, fatigue, and intermittent vomiting for >2 weeks. pt states had cold symptoms about a month ago but nothing currently. pt denies severe headaches, constant or severe vomiting, other illness symptoms, fevers, or other associated symptoms. pt requesting appt Friday, was given appt Friday with [facility] provider at 9:15 for exam. no available appt with PCP at this time. advised home care: rest, fluids. light diet, lie down, and call back as needed. pt understands and agrees with plan. insurance verified. Protocol Used: Headache (Adult) Protocol-Based Disposition: See in Office. Video visit offer not recorded Positive Triage Question: * Mild - Moderate headache present > 3 days (72 hours) * All higher-acuity triage questions were negative Care Advice Discussed: * Pain Medicines * Cold Pack for Headache * Reasons To Call Back - You become worse * Telephone Encounter - Rema Caballero - 03/24/2025 2:09 PM EDT Symptoms: Vomiting, Headache Outcome: Schedule an urgent appointment (within 1 hour) or talk to a nurse or provider soon Reason: No urine (pee) in past 8 hours The caller accepted this outcome. Contact [phone] documented in this encounter Plan of Treatment Upcoming Encounters Date Type Department Care Team ([facility] st Contact Info) Description 05/02/2025 3:15 PM EDT Office Visit [facility] MED & PEDS [address] [place] [address] Donna Sinclair FNP 505 [place] [address] 05/31/2025 10:15 AM EDT Office Visit [facility] MED & PEDS [address] [place] [address] Travis Gillette MD [address] [place], [place] [phone] documented as of this encounter Goals Goal Patient Goal Type Associated Problems Recent Progress Patient-Stated? Author Record your blood pressure once per day Blood Pressure No Serafin Sue, PharmD Short-term: Promote adherence to treatment regimen General No Serafin Sue, PharmD Take your medication every day Lifestyle No Serafin Sue PharmD documented as of this encounter Visit Diagnoses Not on filedocumented in this encounter Additional Health Concerns Assessment Noted Time PHQ-9 Depression Total Score: 8 01/10/20 25 3:34 PM EST documented as of this encounter Care Teams Floor Framer Relationship Specialty Start Date End Date Donna Sinclair FNP [address] [place] [address] PCP - General Family Medicine 07/23/22 Nafisa Garcia MD [address] [place] [address] Hematology and Oncology 11/11/24 documented as of this encounter
--- OUTSIDE RECORDS SUMMARY | 2025-03-29 11:51 | XMS_ITS | Encounter Summary ---
Author Organization [employer] Address 75 [facility] 7t [place] [address] Care Team Providers Care Dye Room Helper Name Role Phone Donna Sinclair Primary Care Provider [phone] Nafisa Garcia MD Unavailable [phone] Reason for Visit * Reason Onset Date Comments Med Refill 02/10/2025 Encounter Details Date Type Department Care Team ([facility] st Contact Info) Description 02/10/2025 Telephone [facility] MEDICINE [address] [place] [address] Donna Sinclair FNP [address] [place] [address] Med Refill Social History Tobacco Use Types Packs/Day Years [...] encounter Miscellaneous Notes * Telephone Encounter - Win Martinez - 02/10/2025 12:01 PM EDT Tc from pt requesting medication as pharmacy stated needs a PA documented in this encounter Plan of Treatment Upcoming Encounters Date Type Department Care Team (Late st Contact Info) Description 05/02/2025 3:15 PM EDT Office Visit [facility] MED & PEDS [address] [place] [address] Donna Sinclair FNP [address] [place] [address] 05/31/2025 10:15 AM EDT Office Visit [facility] MED & PEDS [address] [place] [address] Travis Gillette MD 505 [place] [address] documented as of this encounter Goals Goal [...] documented as of this encounter Care Teams Dye Room Helper Relationship Specialty Start Date End Date Donna Sinclair FNP [address] [place] [address] PCP - General Family Medicine 07/23/22 Nafisa Garcia MD [address] [place] [address] Hematology and Oncology 11/11/24 documented as of this encounter
--- OUTSIDE RECORDS SUMMARY | 2025-03-29 11:51 | XMS_ITS | Encounter Summary ---
Author Organization [employer] Address [address] [facility] 7t [place] [address] Care Team Providers Care Sales And Service Representative Name Role Phone Donna Sinclair [place] Primary Care Provider [phone] Nafisa Garcia MD Unavailable [phone] Encounter Details Date Type Department Care Team (Latest Contact Info) Description 03/28/2025 Travel Social History Tobacco Use Types Packs/Day [...] 05/02/2025 3:15 PM EDT Office Visit [facility] MED & PEDS 505 [place], [place] [phone] Donna Sinclair FNP 505 [place] [address] 05/31/2025 10:15 AM EDT Office Visit [facility] MED & PEDS [address] [place], [place] [phone] Travis Gillette MD 505 [place], [place] [phone] documented as of this encounter Goals Goal [...] as of this encounter Care Teams Sales And Service Representative Relationship Specialty Start Date End Date Donna Sinclair FNP [address] [place] [address] PCP - General Family Medicine 07/23/22 Nafisa Garcia MD [address] [place] [address] Hematology and Oncology 11/11/24 documented as of this encounter
--- OUTSIDE RECORDS SUMMARY | 2025-03-29 11:51 | XMS_ITS | Clinical Summary ---
Author Organization [facility] Address [address] [place] [address] Care Team Providers Care Chief Contract Officer Name Role Phone Unavailable Primary Care Provider [...] Health Maintenance Due Date Last Done Comments Anxiety Screening 1960 Dental FMX/Pano 1960 Tobacco Screening 1960 Breast Cancer Screening (Mammogram) 2000 CT Colonography 02/17/2005 Colonoscopy 02/17/2005 Colorectal Cancer Screening 02/17/2005 FIT/gFOBT 02/17/2005 Fecal DNA 02/17/2005 Flexible Sigmoidoscopy 02/17/2005 Imm-Zoster, Recombinant (1 of 2) 02/17/2010 Imm-Pneumococcal 65+ (3 of 3 - PCV20 or PCV21) 08/28/2021 08/28/2016, 09/13/2014 [id number] ( - season) 2024 Imm-Influenza (#1) 2024 09/04/2021, 0 08/20/2020, 09/13/2019, Additional history exists Alcohol and Drug Screen 12/01/2024 Depression Annual Screen 12/01/2024 Dental BW 01/07/2025 01/05/2024, 01/29, 04/01/2022 Dental Examination 01/07/2025 01/05/2024, 0 02/12/2023, 04/01/2022 Dental Perio Charting 01/07/2025 01/05/2024, 022 Dental Prophy 01/07/2025 01/05/2024, 02/12/2023 Bone Density Screening 02/17/2025 Falls Prevention 02/17/2025 Hypertension Screening (#1) 02/23/2025 Diabetes Screening 03/27/2026 03/27/2023, 0 03/27/2023, 12/17/2022, Additional history exists Imm-DTaP/Tdap/Td (3 - Td or Tdap) 07/30/2026 016, 05/15/2011 Lipid Screening 01/27/2028 01/27/2023, 12/17/2022 HIV Screening Completed 11/13/2021 Hepatitis C Screening Completed 12/17/2022 Procedures Procedure Name Priority Date/Time Associated Diagnosis Comments COMP PERIODONTAL EVALUATION - NEW/EST PATIENT Routine 01/05/2024 2:20 PM EST Encounter for dental examination and cleaning with abnormal findings BITEWINGS - FOUR RADIOGRAPHIC IMAGES Routine 01/05/2024 2:20 PM EST Defective dental buddhist Encounter for dental examination and cleaning with abnormal findings PROPHYLAXIS - ADULT Routine 01/05/2024 2 :20 PM EST Encounter for dental examination and cleaning with abnormal findings PERIODIC ORAL EVALUATION ESTABLISHED PATIENT Routine 01/05/2024 2:20 PM EST Encounter for dental examination and cleaning with abnormal findings from Last 3 Months or Most Recently Relevant to Health Maintenance Insurance [employer]AF[employer] [place] DENT[place]ENT[place]
--- OUTSIDE RECORDS SUMMARY | 2025-03-29 11:51 | XMS_ITS | Encounter Summary ---
Author Organization [facility] Address [address] [place] [address] Care Team Providers Care Events Administrative Assistant Name Role Phone Unavailable Primary Care Provider Unavailabl e Encounter Details Date Type Department Care Team (Late st Contact Info) Description 10/07/2022 Dental Interim Note [facility] [address] [place] [phone] PascalChinyere solomon Y [address] [place], [place] [phone] Social History Tobacco Use Types Packs/Day Years [...]
--- OUTSIDE RECORDS SUMMARY | 2025-03-29 11:51 | XMS_ITS | Encounter Summary ---
Author Organization [employer] Address 75 [facility] 7t [place] [address] Care Team Providers Care Cell Stripper Final Name Role Phone Donna Sinclair Primary Care Provider [phone] Nafisa Garcia MD Unavailable [phone] Reason for Visit * Reason Comments Med Refill Encounter Details Date Type Department Care Team ([facility] Contact Info) Description 01/07/2025 Refill [facility] CHC MED & PEDS [address] [place], [place] [phone] Donna Sinclair FNP [address] [place] [address] Social History Tobacco Use Types Packs/Day Years [...] Description 05/02/2025 3:15 PM EDT Office Visit [facility] MED & PEDS [address] [place] [address] oDnna Sinclair FNP [address] [place] [address] 05/31/2025 10:15 AM EDT Office Visit [facility] MED & PEDS [address] [place] [address] Travis Gillette MD [address] [place] [address] documented as of this encounter Goals Goal [...] documented as of this encounter Care Teams Cell Stripper Final Relationship Specialty Start Date End Date Donna Sinclair FNP [address] [place] [address] PCP - General Family Medicine 07/23/22 Nafisa Garcia MD [address] [place] [address] Hematology and Oncology 11/11/24 documented as of this encounter
--- OUTSIDE RECORDS SUMMARY | 2025-03-29 11:51 | XMS_ITS | Encounter Summary ---
Author Organization [employer] Address [address] [facility] 7t [place] [address] Care Team Providers Care Flow Match Sofa Cutter Name Role Phone DlmarlonElverluis alfredo ALEJANDRA Primary Care Provider Nafisa Garcia MD Unavailable [phone] Encounter Details Date Type Department Care Team ([facility] st Contact Info) Description 07/30/2024 Orders Only [facility] MEDICINE [address] [place] [address] ProviderDilcia MD Social History Tobacco Use Types [...] Description 05/02/2025 3:15 PM EDT Office Visit [facility] MED & PEDS [address] [place] [address] Donna Sinclair FNP [address] [place] [address] 05/31/2025 10:15 AM EDT Office Visit [facility] MED & PEDS [address] [place] [address] Travis Gillette MD [address] [place], [place] [phone] documented as of this encounter Goals Goal [...] documented as of this encounter Care Teams Flow Match Sofa Cutter Relationship Specialty Start Date End Date Donna Sinclair FNP [address] [place] [address] PCP - General Family Medicine 07/23/22 Nafisa Garcia MD [address] [place] [address] Hematology and Oncology 11/11/24 documented as of this encounter
--- OUTSIDE RECORDS SUMMARY | 2025-03-29 11:51 | XMS_ITS | Encounter Summary ---
Author Organization [employer] Address [address] [facility] 7t [place] [address] Care Team Providers Care Ems Director Name Role Phone Donna Sinclair Primary Care Provider [phone] Nafisa Garcia MD Unavailable [phone] Reason for Visit * Reason Onset Date Comments Appointment Request 03/24/2025 Encounter Details Date Type Department Care Team ([facility] st Contact Info) Description 03/24/2025 Telephone [facility] MEDICINE [address] [place] [address] Donna Sinclair FNP [address] [place] [address] Appointment Request Social History Tobacco Use Types [...] Telephone Encounter - Rema Caballero - 03/24/2025 2:20 PM EDT Tc from pt requesting appointment for [facility] wellness check documented in this encounter Plan of Treatment Upcoming Encounters Date Type Department Care Team (Late st Contact Info) Description 05/02/2025 3:15 PM EDT Office Visit [facility] MED & PEDS [address] [place] [address] Donna Sinclair FNP [address] [place] [address] 05/31/2025 10:15 AM EDT Office Visit [facility] MED & PEDS [address] [place] [address] Travis Gillette MD [address] [place] [address] documented as of this encounter Goals Goal [...] documented as of this encounter Care Teams Ems Director Relationship Specialty Start Date End Date Donna Sinclair FNP [address] [place] [address] PCP - General Family Medicine 07/23/22 Nafisa Garcia MD [address] [place] [address] Hematology and Oncology 11/11/24 documented as of this encounter
--- OUTSIDE RECORDS SUMMARY | 2025-03-29 11:51 | XMS_ITS | Encounter Summary ---
Author Organization [employer] Address [address] [facility] 7t [place] [address] Care Team Providers Care Cap Machine Operator Name Role Phone Donna Sinclair Primary Care Provider [phone] Nafisa Garcia MD Unavailable [phone] Reason for Visit * Reason Onset Date Comments Medication Question 05/03/2024 Encounter Details Date Type Department Care Team ([facility] [address] Contact Info) Description 05/03/2024 Telephone [facility] CHC MED & PEDS [address] [place], [place] [phone] Donna Sinclair FNP [address] [place] [address] Medication Question Social History Tobacco Use Types [...] with others, in a hotel, in a half-way, living outside on the street, on a [...] Description 05/02/2025 3:15 PM EDT Office Visit [facility] MED & PEDS [address] [place] [address] Donna Sinclair FNP [address] [place] [address] 05/31/2025 10:15 AM EDT Office Visit [facility] MED & PEDS [address] [place] [address] Travis Gillette MD [address] [place] [address] documented as of this encounter Goals Goal [...] Assessment Noted Time PHQ-9 Depression Total Score: 024 2:07 PM EDT documented as of this encounter Care Teams Cap Machine Operator Relationship Specialty Start Date End Date Donna Sinclair FNP [address] [place], [place] [phone] PCP - General Family Medicine 07/23/22 Nafisa Garcia MD [address] [place] [address] Hematology and Oncology 11/11/24 documented as of this encounter
--- OUTSIDE RECORDS SUMMARY | 2025-03-29 11:51 | XMS_ITS | Encounter Summary ---
Author Organization [employer] Address [address] [facility] 7t [place] [address] Care Team Providers Care Garage Hand Name Role Phone Donna Sinclair [place] Primary Care Provider [phone] Nafisa Garcia MD Unavailable [phone] Reason for Visit * Reason Comments Headache With nausea and vomi ting Encounter Details Date Type Department Care Team (Latest Contact Info) Description 03/28/2025 9:20 AM EDT Office Visit [facility] CHC MED & PEDS [address] [place], [place] [phone] Indiana Spivey MD [address] [place] [address] Nausea and vomiting, unspecified vomiting type (Primary Dx); Prediabetes; Essential hypertension; Subclinical hypothyroidism Social History Tobacco Use Types [...] Sign Reading Time Taken Comments Blood Pressure 142/66 03/28/2025 9:17 AM EDT Pulse 70 03/28/2025 9:17 AM EDT Temperature 37.2 ??C (98.9 ??F) 03/28/2025 9:17 AM ED T Respiratory Rate 18 03/28/2025 9:17 AM EDT Oxygen Saturation - - Inhaled Oxygen Concentration - - Weight 79.4 kg (175 lb) 03/28/2025 9:17 AM EDT Height 160 cm (5' 3 ) 03/28/2025 9:17 AM EDT Body Mass Index 31 03/28/2025 9:17 AM EDT documented in this encounter Progress Notes * Indiana Spivey MD - 03/28/2025 9:20 AM EDT Subjective Patient ID: Margarita Garza is a 65 y.o. female who presents for No chief complaint on file.. Vomiting This is a new problem. The current episode started in the past 7 days. The problem has been gradually worsening. Pertinent negatives include no chest pain or headaches. She has tried nothing for the symptoms. PT STATES IT HAPPENS WHEN HER CHOLESTEROL INCREASES Review of Systems Constitutional: Negative. Respiratory: Negative. Negative for shortness of breath. Cardiovascular: Negative for chest pain and palpitations. Gastrointestinal: Positive for nausea and vomiting. Genitourinary: Negative. Musculoskeletal: Negative for neck pain. Neurological: Negative for headaches. Objective Physical Exam Constitutional: Appearance: Normal appearance. Cardiovascular: Rate and Rhythm: Normal rate and regular rhythm. Pulses: Normal pulses. Heart sounds: Normal heart sounds. Pulmonary: Effort: Pulmonary effort is normal. Abdominal: General: Abdomen is flat. Neurological: Mental Status: She is alert. Assessment/Plan Diagnoses and all orders for this visit: Nausea and vomiting, unspecified vomiting type Comments: Started on Omeprazole and Zofran Advised to avoid sweet food Labs ordered today Prediabetes - POCT Glucose Essential hypertension - Basic Metabolic Panel; Future - Lipid Panel, Standard; Future - Hepatic Function Panel; Future Subclinical hypothyroidism - TSH with Reflex to Free T4; Future Other orders - omeprazole OTC (PriLOSEC OTC) 20 MG EC tablet; Take 1 tablet (20 mg) by mouth before breakfast. Do not crush, chew, or split. - ondansetron (Zofran) 4 MG tablet; Take 1 tablet (4 mg) by mouth every 8 (eight) hours if needed for nausea or vomiting for up to 7 days. documented in this encounter Plan of Treatment Upcoming Encounters Date Type Department Care Team (Late st Contact Info) Description 05/02/2025 3:15 PM EDT Office Visit [facility] MED & PEDS [address] [place] [address] Donna Sinclair FNP [address] [place] [address] 05/31/2025 10:15 AM EDT Office Visit [facility] MED & PEDS [address] [place] [address] Travis Gillette MD [address] [place] [address] Scheduled Orders Name Type Priority Associated Diagnoses Orde r Schedule Basic Metabolic Panel Lab Routine Essential hypertension Expected: 03/28/2025 (Approximate), Expires: 03/28/2026 Lipid Panel, Standard Lab Routine Essential hypertension Expected: 03/28/2025 (Approximate), Expires: 03/28/2026 Hepatic Function Panel Lab Routine Essential hypertension Expected: 03/28/2025 (Approximate), Expires: 03/28/2026 TSH with Reflex to Free T4 Lab Routine Subclinical hypothyroidism Expected: 03/28/2025 (Approximate), Expires: 03/28/2026 documented as of this encounter Goals Goal Patient Goal Type Associated Problems Recent Progress Patient-Stated? Author Record your blood pressure once per day Blood Pressure No Serafin Sue PharmD Short-term: Promote adherence to treatment regimen General No Serafin Sue PharmD Take your medication every day Lifestyle No Serafin Sue PharmD documented as of this encounter Procedures Procedure Name Priority Date/Time Associated Diagnosis Comments POCT GLUCOSE Routine 03/28/2025 9:21 AM EDT Prediabetes documented in this encounter Results * POCT Glucose (03/28/2025 9:21 AM EDT) Glucose Blood, POC 105 60 - 200 mg/dL QC Media Lot # [id number] Lot# Expiration Date Blood Capillary blood specimen / Unknown 03/28/2025 9:21 AM EDT Indiana Spivey MD POINT OF CARE TEST ENTER/EDIT OR DERABLES Final Result documented in this encounter Visit Diagnoses Diagnosis Nausea and vomiting, unspecified vomiting type- Primary Prediabetes Other abnormal glucose Essential hypertension Unspecified essential hypertension Subclinical hypothyroidism Other specified acquired hypothyroidism documented in this encounter Additional Health Concerns Assessment Noted Time PHQ-9 Depression Total Score: 8 01/10/20 25 3:34 PM EST documented as of this encounter Care Teams Garage Hand Relationship Specialty Start Date End Date Donna Sinclair FNP [address] [place] [address] PCP - General Family Medicine 07/23/22 Nafisa Garcia MD [address] [place] [address] Hematology and Oncology 11/11/24 documented as of this encounter
--- OUTSIDE RECORDS SUMMARY | 2025-03-29 11:51 | XMS_ITS | Encounter Summary ---
Author Organization [employer] Address 75 [facility] 7t [place] [address] Care Team Providers Care Doubling Machine Operator Name Role Phone Donna Sinclair Primary Care Provider [phone] Nafisa Garcia MD Unavailable [phone] Encounter Details Date Type Department Care Team (Latest Contact Info) Description 03/28/2023 Orders Only [facility] MEDICINE [address] [place] [address] Donna Sinclair FNP [address] [place] [address] Hypertriglyceridemia (Primary Dx) Social History Tobacco Use [...] Upcoming Encounters Date Type Department Care Team ( st Contact Info) Description 05/02/2025 3:15 PM EDT Office Visit [facility] CHC MED & PEDS [address] [place] [address] Donna Sinclair FNP [address] [place] [address] 05/31/2025 10:15 AM EDT Office Visit [facility] MED & PEDS [address] [place] [address] Travis Gillette MD [address] [place] [address] documented as of this encounter Visit Diagnoses Diagnosis Hypertriglyceridemia- Primary Pure hyperglyceridemia documented in this encounter Additional Health Concerns Assessment Noted Time PHQ-9 Depression Total Score: 8 12/10/19 23 1:13 PM EST documented as of this encounter Care Teams Doubling Machine Operator Relationship Specialty Start Date End Date Donna Sinclair FNP [address] [place] [address] PCP - General Family Medicine 07/23/22 Nafisa Garcia MD [address] [place] [address] Hematology and Oncology 11/11/24 documented as of this encounter
--- OUTSIDE RECORDS SUMMARY | 2025-03-29 11:51 | XMS_ITS | Encounter Summary ---
Author Organization [employer] Address 75 [facility] 7t [place] [address] Care Team Providers Care Pv Installer Tech Name Role Phone Donna Sinclair Primary Care Provider [phone] Nafisa Garcia MD Unavailable [phone] Reason for Visit * Reason Onset Date Comments Call 2023 Encounter Details Date Type Department Care Team ([facility] st Contact Info) Description 2023 Telephone [facility] MEDICINE [address] [place] [address] Donna Sinclair FNP [address] [place] [address] Call Social History Tobacco Use Types Packs/Day [...] message previously sent. Please contact pt at [phone] * Telephone Encounter - Luis Shelton Neal - 2023 11:12 AM EDT Tc from pt requesting a call from us to facility were referral for Unitary was sent to. Pt states that facility needs Authorization Number, Expiration Date, and How many visits. Please contact facility at [phone] and fx #: [phone] Please contact pt at [phone] documented in this encounter Plan of Treatment Upcoming Encounters Date Type Department Care Team (Late st Contact Info) Description 05/02/2025 3:15 PM EDT Office Visit [facility] MED & PEDS [address] [place] [address] Donna Sinclair FNP [address] [place] [address] 05/31/2025 10:15 AM EDT Office Visit [facility] MED & PEDS [address] [place] [address] Travis Gillette MD [address] [place] [address] documented as of this encounter Visit Diagnoses Not on filedocumented in this encounter Additional Health Concerns Assessment Noted Time PHQ-9 Depression Total Score: 8 12/10/19 23 1:13 PM EST documented as of this encounter Care Teams Pv Installer Tech Relationship Specialty Start Date End Date Donna Sinclair FNP [address] [place] [address] PCP - General Family Medicine 07/23/22 Nafisa Garcia MD [address] [place] [address] Hematology and Oncology 11/11/24 documented as of this encounter
--- OUTSIDE RECORDS SUMMARY | 2025-03-29 11:51 | XMS_ITS | Encounter Summary ---
Author Organization [employer] Address [address] [place] [address] Care Team Providers Care Manager Car Name Role Phone Donna Sinclair Primary Care Provider [phone] Nafisa Garcia MD Unavailable [phone] Reason for Visit * Reason Onset Date Comments Nurse Triage 01/03/2025 Encounter Details Date Type Department Care Team ([facility] st Contact Info) Description 01/03/2025 Telephone [facility] [address] [place] [address] Donna Sinclair FNP [address] [place] [address] Nurse Triage Social History Tobacco Use Types [...] encounter Miscellaneous Notes * Telephone Encounter - Maryellen Guerrero RN - 01/03/2025 11:53 AM EST Called pt. She states that she spoke with her PCP at last appt. About always feeling tired. Pt continues to feel tired and also did have blood work done. I did notify pt. That HGB A1c was elevated but it has been elevated x 2 years. Pt not sure if she will be put on Diabetic medication but was prescribed Zepbound and was approved but, Pharmacy states they do not have RX for it. Appt. Made for today for a televisit with PCP at 4pm a pt. Wants to discuss concerns with PCP. Protocol Used: Weakness (Generalized) and Fatigue (Adult) Protocol-Based Disposition: Go to Office or Video Visit Now-televisit with PCP today at 4pm. Positive Triage Questions: * Moderate weakness (e.g., interferes with work, school, normal activities) and cause unknown (Exceptions: Weakness from acute minor illness or from poor fluid intake; weakness is chronic and not worse.) * Fatigue is a chronic symptom (recurrent or ongoing AND present > 4 weeks) * All higher-acuity triage questions were negative * Telephone Encounter - Jaspreet Velazquez - 01/03/2025 11:33 AM EST Symptom: Lethargic (Tired) Outcome: Transfer to a nurse or provider NOW! Reason: Hard to wake up The caller accepted this outcome. Contact pt at [phone] documented in this encounter Plan of Treatment Upcoming Encounters Date Type Department Care Team (Late st Contact Info) Description 05/02/2025 3:15 PM EDT Office Visit [facility] [address] [place] [address] Donna Sinclair FNP [address] [place] [address] 05/31/2025 10:15 AM EDT Office Visit [facility] [address] [place] [address] Travis Gillette MD [address] [place], [place] [id number] documented as of this encounter Goals Goal Patient Goal Type Associated Problems Recent Progress Patient-Stated? Author Record your blood pressure once per day Blood Pressure No Serafin Sue PharmD Short-term: Promote adherence to treatment regimen General No Serafin Sue, PharmD Take your medication every day Lifestyle No Serafin Sue PharmD documented as of this encounter Visit Diagnoses Diagnosis Obesity, unspecified class, unspecified obesity type, unspecified whether serious comorbidity present documented in this encounter Additional Health Concerns Assessment Noted Time PHQ-9 Depression Total Score: 10 025 11:34 AM EST documented as of this encounter Care Teams Manager Car Relationship Specialty Start Date End Date Donna Sinclair FNP [address] [place] [address] PCP - General Family Medicine 07/23/22 Nafisa Garcia MD [address] [place] [id number] Hematology and Oncology 11/11/24 documented as of this encounter
--- OUTSIDE RECORDS SUMMARY | 2025-03-29 11:51 | XMS_ITS | Encounter Summary ---
Author Organization [employer] Address [address] [facility] [address] [place] [address] Care Team Providers Care Bobtailer Name Role Phone Donna Sinclair Primary Care Provider [phone] Nafisa Garcia MD Unavailable [phone] Reason for Visit * Reason Comments Med Refill Encounter Details Date Type Department Care Team ([facility] Contact Info) Description 02/15/2023 Refill [facility] [address] [place] [address] Donna Sinclair FNP [address] [place] [address] Subclinical hypothyroidism Social History Tobacco Use Types [...] Upcoming Encounters Date Type Department Care Team ([facility] Contact Info) Description 05/02/2025 3:15 PM EDT Office Visit [facility] [address] [place] [address] Donna Sinclair FNP [address] [place] [address] 05/31/2025 10:15 AM EDT Office Visit [facility] [address] [place] [address] Travis Gillette MD [address] [place] [address] documented as of this encounter Visit Diagnoses Diagnosis Subclinical hypothyroidism Other specified acquired hypothyroidism documented in this encounter Additional Health Concerns Assessment Noted Time PHQ-9 Depression Total Score: 8 12/10/19 23 1:13 PM EST documented as of this encounter Care Teams Bobtailer Relationship Specialty Start Date End Date Donna Sinclair FNP [address] [place] [address] PCP - General Family Medicine 07/23/22 Nafisa Garcia MD [address] [place] [id number] Hematology and Oncology 11/11/24 documented as of this encounter
--- OUTSIDE RECORDS SUMMARY | 2025-03-29 11:52 | XMS_ITS | Clinical Summary ---
Author Organization [employer] Address [address] [facility] [address] [place] [address] Care Team Providers Care Numberer And Wirer Name Role Phone Donna Sinclair [place] Primary Care Provider [phone] Nafisa Garcia MD Unavailable Allergies Active Allergy Reactions Criticality Noted Date [...] ONCE DAILY 100 strip 11 024 Active gabapentin (Neurontin) 400 MG capsuleIndication s:Neuropathy TAKE 1 CAPSULE BY MOUTH TWICE A DAY IN THE MORNING AND AT BEDTIME 60 capsule 3 024 Active loratadine (Claritin) 10 MG tabletIndications :Seasonal allergies TAKE 1 TABLET BY MOUTH EVERY DAY NEEDED FOR ALLERGIES 90 tablet 3 024 Active simethicone 250 MG capsuleIndication s:Bloating Take 1 capsule by mouth twice daily as needed for bloating 60 capsule 3 024 Active metoprolol succinate XL (Toprol-XL) 25 MG 24 hr tabletIndications :Essential hypertension TAKE 1 TABLET BY MOUTH EVERY EVENING (FOR HIGH BLOOD PRESSURE) 90 tablet 3 024 Active losartan-hydroCHL OROthiazide (Hyzaar) 100-25 MG tabletIndications [...] AT BEDTIME 90 tablet 3 025 Active levothyroxine (Synthroid, Levoxyl) 25 MCG tabletIndications :Subclinical hypothyroidism TAKE 1 TABLET EVERY OTHER MORNING ON AN EMPTY STOMACH, 30-60 MINS BEFORE BREAKFAST OR MEDICATIONS. 45 tablet 1 Active FLUoxetine (PROzac) 10 MG capsuleIndication s:Moderate depressive disorder Take 1 capsule (10 mg) by mouth in the morning. 30 capsule 1 025 2024 Active doxepin (SINEquan) 10 MG capsuleIndication s:Other insomnia Take 1 capsule (10 mg) by mouth at bedtime. 30 capsule 025 2024 Active hydrOXYzine HCl (Atarax) 25 MG tabletIndications :Moderate anxiety Take 1 tablet (25 mg) by mouth if needed in the morning, at noon, and at bedtime for anxiety. 90 tablet 1 025 2024 Active doxepin (SINEquan) 50 MG capsuleIndication s:Trichotillomani a in adult Take 1 capsule (50 mg) by mouth at bedtime. 30 capsule 11 025 2025 Active metFORMIN XR (Glucophage-XR) 500 MG 24 hr tablet TAKE 1 TABLET BY MOUTH EVERY EVENING WITH A MEAL. 90 tablet 3 Active omeprazole OTC (PriLOSEC OTC) 20 MG EC tablet Take 1 tablet (20 mg) by mouth before breakfast. Do not crush, chew, or split. 30 tablet 11 025 2025 Active ondansetron (Zofran) 4 MG tablet Take 1 tablet (4 mg) by mouth every 8 (eight) hours if needed for nausea or vomiting for up to 7 days. 20 tablet 025 2024 Active metFORMIN XR (Glucophage-XR) 500 MG 24 hr tablet TAKE 1 TABLET BY MOUTH EVERY EVENING WITH A MEAL 90 tablet 3 024 2024 Discontinued hydrOXYzine HCl (Atarax) 25 MG tablet Take 1 tablet (25 mg) by mouth if needed in the morning, at noon, and at bedtime for anxiety or itching. 90 tablet 2 2024 Discontinued(R eorder (will not trigger notification to Pharmacy)) doxepin (SINEquan) 10 MG capsuleIndication s:Other insomnia Take 1 capsule (10 mg) by mouth at bedtime. 30 capsule 025 2024 Discontinued(R eorder (will not trigger notification to Pharmacy)) Tirzepatide-Weigh t Management (Zepbound) 2.5 MG/0.5ML solution auto-injectorIndi cations:Class 1 obesity Inject 0.5 mL (2.5 mg) under the skin 1 (one) time per week. 2 mL 3 025 2024 Discontinued doxepin (SINEquan) 25 MG capsuleIndication s:Trichotillomani a in adult Take 1 capsule (25 mg) by mouth at bedtime. 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 Assessment & Plan (03/15/2025 2:57 PM EDT): During IBH Consult Margarita presenting with excessive worry/anxiety, difficulty controlling worry, anxiety/worry associated to restlessness and/or feeling keyed-up/On edge , easily fatigued , and difficulty concentrating and/or mind going blank , Fear , and sense of dread , recurrent pulling out her hair resulting in hair loss, repeated unsuccessful attempts to decrease hair pulling, hair pulling causes clinically significant distress in social, occupational and other areas of functioning ; for a period of 18+ mo, for most or all symptoms in the context of and illness or family illness. Pt's is coping with her significant loss. Her last year; Margarita is processing her emotions as the days come by. Her anxiety is still present and increases when having ruminating thoughts. Pt does hair pulling when her anxiety is high and it does happen very often per her report. Margarita is doing pharmacology with [facility] prescriber, Serafin Hussein. Pt report having side effect from some of the medication. Pt will discuss concerns during next appointment with Serafin Hussein on March. Assessment & Plan (02/14/2025 8:51 AM EDT): During IBH Consult Margarita presenting with excessive worry/anxiety, difficulty controlling worry, and anxiety/worry associated to restlessness and/or feeling keyed-up/On edge and difficulty concentrating and/or mind going blank , recurrent pulling out her hair resulting in hair loss, repeated unsuccessful attempts to decrease hair pulling, hair pulling causes clinically significant distress in social, occupational and other areas of functioning ; for a period of 18+ mo, for most or all symptoms in the context of , illness or family illness, and untreated mental health. Margarita reported her on August,. Her anxiety has increased since then, however, patient reported symptoms described above haven been present since her early 20's. Pt has positive support from her adult daughters. Her sense of sylvester and spirituality is identified as protective factors. Margarita is engaged in psychopharmacology services with [facility] provider, Serafin Hussein. Her next appointment will be on 02/28. clinician will provide additional support as needed during next medical appointments. Pt agreed with the plan. Bereavement without complication 12/06/2024 Assessment & Plan (01/10/2025 3:50 PM EST): During IBH Consult Margarita presenting with depressed mood, Tearful, crying spells , hopelessness, loss of interests/pleasure , sense of isolation/loneliness , isolating, change in appetite or weight reduce appetite, changes in sleep difficulty falling asleep, fatigue/loss of energy, worthlessness, inappropriate/excessive guilt , difficulty concentrating, indecisiveness and excessive worry/anxiety, difficulty controlling worry, anxiety/worry associated to restlessness and/or feeling keyed-up/On edge , easily fatigued , and sleep disturbance difficulty falling asleep and difficulty staying asleep , and Fear ; for a period of 0-6 mo, for most or all symptoms in the context of . Margarita reported her on August,. Her anxiety has increased since then. She's not able to use her own coping skill to deescalate her emotions. Reports having positive support from her adult daughters. Her sense of sylvester and spirituality are strong and identified as protective factors. Pt is currently seeing [facility] psychiatrist, Serafin Hussein for medication management. clinician engaged patient with active/reflective listening. Reviewed and assessed for risk, current stressors and protective factors using open-ended questions. Empathized and validated patient's emotions and provided a safe space for her to share her concerns. Pt declined referral for OP therapy at this time and would like a follow-up from clinician. In-person appointment made for 02/10. Pt agreed with plan. Assessment & Plan (12/07/2024 10:01 AM EST): [...] Hemoglobin range 10.4-11.7. MCV normocytic. Following with [facility] - Dr. Garcia. Consult Dec 2024 - no need for parenteral iron at this time, rec EGD/colonoscopy Assessment & Plan (11/11/2024 6:24 PM EST): Hx anemia dating back to 2020. Hemoglobin range 10.4-11.7. MCV normocytic. Following with [facility] - Dr. Garcia. Consult Jul 2024 [...] Sacral Neuromodulation Permanent Implant (Dr. Zamora at [facility]) Indication: refractory urgency urinary incont Assessment & Plan (04/06/2024 9:41 AM EDT): Good response to implant, cont following with specialist Healthcare maintenance 09/22/2023 Overview (11/11/2024): Mammogram: reports completed through [facility] Pap: following with outside provider - Carolina Harrington CNM Colonoscopy: referred to [facility] 09/21/24 for colonoscopy Last PE: 09/22/23 Vaccine titers: Mumps titer not c/w immunity in Dec 2023, plan to follow up for MMR vaccine Hep B non-immune Dec 2023, restarted Hep B series January 2024 Dental: [facility] ([facility]) OPH: [facility] Jul 2024, normal Class [...] help PLAN: 1. Follow up with [facility]: Not recommended for follow-up 2. Patient goal [...] PM EST): -START levothyroxine 12.5mg daily, reviewed medical administrative technician and safety -Repeat labs in 4 weeks [...] 10:17 AM EST): Referral to reestablish with [facility] Derm Team Assessment & Plan (09/28/2023 9:23 PM EDT): ?? Referral to [facility] Derm team placed 09/28/23 Prediabetes 11/10/2021 Overview [...] organization. Date Type Department Care Team Description 03/28/2025 9:20 AM EDT Office Visit [facility] MED & PEDS [address] [place] [address] Indiana Spivey MD Nausea and vomiting, unspecified vomiting type (Primary Dx); Prediabetes; Essential hypertension; Subclinical hypothyroidism 03/28/2025 Refill [facility] [address] [place] [address] Indiana Spivey MD 03/28/2025 Travel 03/24/[address] [facility] MEDICINE [address] [place] [phone] Donna Sinclair FNP Appointment Request 03/24/[address] [facility] MEDICINE [address] [place] [phone] Donna Sinclair FNP Appointment Request 03/24/[address] [facility] MEDICINE [address] [place] [phone] Donna Sinclair FNP Nurse Triage 03/06/[address] [facility] MEDICINE [address] [place] [address] Donna Sinclair FNP 03/01/2025 11:00 AM EDT Office Visit [facility] PED[facility] [address] [place] [address] Travis Gillette MD Trichotillomania in adult (Primary Dx) 03/01/2025 Travel 02/28/2025 Refill [facility] & PEDS [address] [place] [address] Donna Sinclair FNP Moderate anxiety 02/25/[address] [facility] MEDICINE [address] [place] [phone] Donna Sinclair FNP Prior Authorization 02/24/2025 Telephone [facility] [address] [place] [address] Donna Sinclair FNP Physical due 02/16/2025 Telephone [facility] [address] [place] [address] Donna Sinclair FNP Medication Question 02/15/2025 Orders Only [facility] [address] [place] [address] Donna Sinclair FNP Class 1 obesity (Primary Dx) 02/15/[address] [facility] MEDICINE [address] [place] [phone] Donna Sinclair FNP Results 02/11/2025 Population Health Risk Score [facility] () Department [address] [place] [id number] Provider, Population Health Generic 02/10/[address] [facility] MEDICINE [address] [place] [phone] Donna Sinclair FNP Med Refill 02/07/[address] [facility] MEDICINE [address] [place] [phone] Donna Sinclair FNP Prior Authorization 01/07/2025 Refill [facility] [address] [place] [address] Donna Sinclair FNP 01/03/2025 4:00 PM EST Telemedicine [facility] [address] [place] [address] Donna Sinclair, SHREDDER/GRANULATOR OPERATOR Elevated LFTs (Primary Dx); Obesity, unspecified class, unspecified obesity type, unspecified whether serious comorbidity present 01/03/[address] [facility] MEDICINE [address] [place] [phone] Donna Sinclari FNP 01/03/2025 Travel 01/03/[address] [facility] MEDICINE [address] [place] [phone] Donna Sinclair FNP Nurse Triage 01/03/[address] [facility] MEDICINE [address] [place] [address] Donna Sinclair FNP Results 12/31/[address] [facility] MEDICINE [address] [place] [address] Donna Sinclair FNP Subclinical hypothyroidism from Last 3 Months Immunizations Name Administration [...] 18 03/28/2025 9:17 AM EDT Oxygen Saturation 98% 03/01/2025 11:04 AM EDT Inhaled Oxygen Concentration - - Weight 79.4 kg (175 lb) 03/28/2025 9:17 AM EDT Height 160 cm (5' 3 ) 03/28/2025 9:17 AM EDT Body Mass Index 31 03/28/2025 9:17 AM EDT Plan of Treatment Upcoming Encounters Date Type Department Care Team (Late st Contact Info) Description 05/02/2025 3:15 PM EDT Office Visit [facility] MED & PEDS [address] [place] [address] Donna Sinclair FNP [address] [place] [address] 05/31/2025 10:15 AM EDT Office Visit [facility] MED & PEDS [address] [place] [address] Travis Gillette MD [address] [place] [address] Health Maintenance Due Date Last Done Comments CT Colonography 1960 Colonoscopy 1960 Colorectal Cancer Screening 1960 FIT DNA/Cologuard 1960 FIT 1960 FOBT 1960 Sigmoidoscopy 1960 Hepatitis A Vaccines (1 of 2 - Risk 2-dose series) 02/17/1979 Zoster Vaccines (1 of 2) 02/17/2010 RSV Patients and Patients Aged 60 years or older (1 - Risk 60-74 years 1-dose series) 2020 Pneumococcal Vaccine: 50+ Years (3 of 3 - PCV20 or PCV21) 08/28/2021 08/28/2016, 09/13/2014 COVID-19 Vaccine ( - season) 2024 Influenza Vaccine (#1) 2024 , 09/04/2021, 08/20/2020, Additional history exists Hepatitis B Vaccines (3 of 3 - Risk 3-dose series) 08/04/2024 05/21/2024, 02/02/2024 Mammogram 02/04/2025 02/04/2023 SDOH Screening 05/11/2025 05/11/2024 Alcohol/Substance Use Screening 11/05/2025 11/05/2024 Diabetes: Hemoglobin A1C 12/22/2025 025, 09/29/2023, 03/27/2023, Additional history exists Depression Screening 01/10/2026 01/10/2025, 01/10/20 Tobacco Screening 03/28/2026 03/28/2025 DTaP/Tdap/Td Vaccines (3 - Td or Tdap) 07/30/2026 07/30/2016, 05/15/2011 Cervical Cancer Screening 01/02/2027 HPV/Cotest 01/02/2027 01/02/2022 Pap Smear 01/02/2027 01/02/2022 Lipid Panel 12/22/2029 12/22/2024, 05/02, 12/22/2023, Additional history exists Hepatitis C Screening Completed 12/17/2022 , 11/13/2021, [...] GLUCOSE Routine 03/28/2025 9:21 AM EDT Prediabetes US ABDOMEN LIMITED Routine 02/09/2025 Elevated LFTs HEMOGLOBIN A1C Routine 12/22/2024 12:54 PM EST Prediabetes LIPID PANEL, STANDARD Routine 12/22/2024 12:54 PM EST Prediabetes HM MAMMOGRAPHY Routine 02/04/2023 HEPATITIS C AB W/REFL TO HCV RNA, QN, PCR Routine 12/17/2022 11:08 AM EST Routine health maintenance PAP/HPV Routine 01/02/2022 from Last 3 Months or Most Recently Relevant to Health Maintenance Results * POCT Glucose (03/28/2025 9:21 AM EDT) Glucose Blood, POC 105 60 - 200 mg/dL QC Media Lot # [id number] Lot# Expiration Date Blood Capillary blood specimen / Unknown 03/28/2025 9:21 AM EDT us Indiana Spivey MD POINT OF CARE TEST ENTER/EDIT OR DERABLES Final Result * US Abdomen Limited (02/09/2025) Anatomical Region Laterality Modality Abdomen Ultrasound us Donna SOSAP IMG US PROCEDURES Final Result * (ABNORMAL) Hemoglobin A1c (12/22/2024 12:54 PM EST) Hemoglobin A1c 6.1(H) <6.0 % [facility] Comment:Hemoglobin A1C Refer ence Range Adults: 4.8 - 6.0 % Non diabetic: < 6.0 % Goal: < 7.0 %Additional Action Suggested: > 8.0 %Note: Hemoglobin A1c results are invalid for patients with abnormal amounts of HbF. Blood transfusions may impact the HbA1c concentration in the patient sample. Estimated Average Glucose 128 mg/dL [facility] Comment:eAG = Estimated ave rage glucose which is %A1C expressed asaverage glucose, using the formula of the Q9S-CqkohlgUcijcrn Glucose study (ADAG), Diabetes Care, Vol.31,#8,Jul. 2007 Blood Venous blood specimen / Unknown 12/22/2024 12:54 PM EST 12/22/2024 2:00 PM EST us Donna SOSAP LAB BLOOD ORDERABLES Final Res ult [facility] [address] [place] [phone] * (ABNORMAL) Lipid Panel, Standard (12/22/2024 12:54 PM EST) Triglycerides 360(H) <150 mg/dL [facility] Comment:Slight Lipemia.Jimbo able Triglyceride: less than 150 mg/dLBorderline High Triglyceride 150-199 mg/dLHigh Triglyceride: 200-499 mg/dLVery High Triglyceride: greater than or equal to 5OO mg/dL Cholesterol 140 <200 mg/dL [facility] Comment:Desirable Cholestero l: less than 200 mg/dLBorderline High Cholesterol: 200-239 mg/dLHigh Cholesterol: greater than 239 mg/dL LDL Cholesterol Calculated 42 <100 mg/dL [facility] Comment:Desirable LDL: less than 100 mg/dLNear Optimal/Above Optimal LDL: 110- 129 mg/dLBorderline High LDL: 130-159 mg/dLHigh LDL: 160-189 mg/dLVery High LDL: greater than or equal to 190 mg/dL HDL Cholesterol 26(L) >40 mg/dL [facility] Comment:Desirable HDL: great er than 40 mg/dL Note: This HDL assay may give artificially low results in patients with liver disease. Blood Venous blood specimen / Unknown 12/22/2024 12:54 PM EST 12/22/2024 2:00 PM EST Donna Sinclair [facility] LAB BLOOD ORDERABLES Final Res ult [facility] [address] [place] [phone] * Mammography (02/04/2023) Mammogram BIRADS 2 Normal, Abnormal, BIRADS 1 , BIRADS 2 Anatomical Region Laterality Modality Other Historical Provider HEALTH MAINTENANCE Edited Result - Final * Hepatitis C Antibody with Reflex to HCV, RNA, Quantitative, Real-Time PCR (12/17/2022 11:08 AM EST) Pathologist [facility] Hepatitis C Antibody NON-REACT LILLIAM NON-REACT LILLIAM [facility] [employer] Index 0.07 <1.00 [facility] Comment: HCV antibody was non-reactive. There is no laboratory evidence of HCV infection. In most cases, no further action is required. However, if recent HCV exposure is suspected, a test for HCV RNA (test code 70683) is suggested. For additional information please refer to http://education.[employer].Casengo/faq/WRY63u4 (This link is being provided for informational/ educational purposes only.) Blood Venous blood specimen / Unknown 12/17/2022 11:08 AM EST 12/17/2022 11:08 AM EST Narrative [facility] - 12/21/2022 10:38 AM EST FASTING:NO FASTING: NO Donna Sinclair SHREDDER/GRANULATOR OPERATOR LAB BLOOD ORDERABLES Final Res ult [facility] [address] [facility] [facility] [place] [address] [facility] [place] [facility] [address] [facility], ([address]) [place] [address] * Hm Pap Smear (01/02/2022) Pap Negative for intraephithelial lesion or malignancy Negative for intraephithelial lesion or malignancy, Other HPV Not Detected Undetected, Indeterminate, Quantitative, Not Detected Historical Provider MD HEALTH MAINTENANCE Final Result from Last 3 Months or Most Recently Relevant to Health Maintenance Insurance STANDARD MEDICARE Care Teams Numberer And Wirer Relationship Specialty Start Date End Date Donna Sinclair FNP [address] [place] [address] PCP - General Family Medicine 07/23/22 Nafisa Garcia MD [address] [place] [phone] Hematology and Oncology 11/11/24
--- OUTSIDE RECORDS SUMMARY | 2025-03-29 11:52 | XMS_ITS | Encounter Summary ---
Author Organization [employer] Address [address] [facility] [address] [place] [address] Care Team Providers Care Product Development Scientist Name Role Phone Donna Sinclair Primary Care Provider [phone] Nafisa Garcia MD Unavailable Reason for Visit * Reason Comments Med Refill Encounter Details Date Type Department Care Team ([facility] Contact Info) Description 01/30/2023 Refill [facility] [address] [place] [address] Donna Sinclair FNP [address] [place] [address] Neuropathy; Primary hypertension Social History Tobacco Use [...] 3:15 PM EDT Office Visit [facility] [address] [place] [address] Donna Sinclair FNP [address] [place] [address] 05/31/2025 10:15 AM EDT Office Visit [facility] [address] [place] [address] Travis Gillette MD [address] [place] [address] documented as of this encounter Visit Diagnoses Diagnosis Neuropathy Mononeuritis of unspecified site Primary hypertension Unspecified essential hypertension documented in this encounter Additional Health Concerns Assessment Noted Time PHQ-9 Depression Total Score: 8 12/10/19 23 1:13 PM EST documented as of this encounter Care Teams Product Development Scientist Relationship Specialty Start Date End Date Donna Sinclair FNP [address] [place] [address] PCP - General Family Medicine 07/23/22 Nafisa Garcia MD [address] [place] [phone] Hematology and Oncology 11/11/24 documented as of this encounter
[2025-03-29 15:05] LABS: Alanine Aminotransferase 15 U/L (0-31); Alkaline Phosphatase 94 U/L (39-117); Anion Gap 12 (12-20); Aspartate Amino Transferase 25 U/L (5-31); Bilirubin Direct 0.1 mg/dL (0.0-0.5); Bilirubin Total 0.3 mg/dL (0.0-1.0); Blood Urea Nitrogen 19 mg/dL (9-16); Calcium 8.9 mg/dL (8.4-10.2); Carbon Dioxide 26 mmol/L (22-29); Chloride 108 mmol/L (96-108); Cholesterol 185 mg/dL (<200); Estimated Glomerular Filt Rate > 60; Glucose Random 98 mg/dL (60-115); HDL Cholesterol 39 mg/dL (>40); LDL Cholesterol Calculated 101 mg/dL (<100); Potassium 3.8 mmol/L (3.3-5.1); Sodium 142 mmol/L (135-145); TSH reflex Free T4 2.16 uIU/mL (0.32-4.0); Total Protein 7.3 g/dL (6.5-8.0); Triglycerides 228 mg/dL (<150)
== END 2025-03-29 10:22 | disposition home or self-care (01) ==
LOC: HO.CHCLDS 10:21
PROVIDERS: Visit Provider Student in an Organized Health Care Education/Training Program
DX: I10 Essential (primary) hypertension (principal); E03.8 Other specified hypothyroidism
CPT/HCPCS: 36415; 80048; 80061; 80076; 84443

== ENCOUNTER 2025-08-11 10:47 | Outpatient (REF) | payer MEDICAID, SELFPAY ==
--- OUTSIDE RECORDS SUMMARY | 2025-08-08 11:15 | XMS_ITS | Encounter Summary ---
Author Organization [employer] Address [address] [place] [address] [address], [place] [address] Care Team Providers Care Removable Prosthodontist Name Role Phone Donna Sinclair Primary Care Provider [phone] Nafisa Garcia MD Unavailable [phone] Reason for Referral * Consultation (Routine) - Pending Review Specialty Diagnoses / Procedures Referred By Pillo spicer Referred To Contact Dermatology Diagnoses Trichotillomania Donna Sinclair FNP [address] [place] [address] Phone: tel: fax: Monica Neves [address] [place] [address] Phone: tel: fax: Referral ID Status Reason Start Date Expiration Date Visits Requested Visits Authorized [id number] Pending Review Specialty Services Required 08/08/2025 08/08/2026 1 1 * Imaging (Routine) - Authorized Specialty Diagnoses / Procedures Referred By Pillo spicer Referred To Contact Radiology Diagnoses Screening mammogram for breast cancer Procedures BI Mammogram Screening Tomosynthesis Bilateral Donna Sinclair FNP [address] [place] [address] Phone: tel: fax: [facility] Referral ID Status Reason Start Date Expiration Date V isits Requested Visits Authorized [id number] Authorized 08/08/2025 08/08/2026 1 1 Encounter Details Date Type Department Care Team (Late st Contact Info) Description 08/08/2025 11:15 AM EDT Office Visit [facility] MED & PEDS [address] [place] [address] Donna Sinclair FNP [address] [place] [address] Essential hypertension (Primary Dx); Hypercholesterolemia; Prediabetes; Healthcare maintenance; Screening mammogram for breast cancer; Dietary counseling; Exercise counseling; Hypertriglyceridemia; Subclinical hypothyroidism; Pain of toe of left foot; Trichotillomania; Body mass index (BMI) 31.0-31.9, adult; Bloating; Encounter for immunization Social History Tobacco Use Types Packs/Day Years [...] Recorded Patient Health Questionnaire-2 Score 2 01/10/2025 Internet Access Answer Date Recorded Internet Access Q1 No 04/18/2025 Internet Access Q2 I do not want or need it 03/31 Comments Unknown Sex and Gender Information Value Date Recorded Sex Assigned at Female 09/30/2022 10:37 AM EDT Legal Sex Female 10:37 AM EDT Gender Identity Female 09/30/2022 10:37 AM EDT Sexual Orientation Straight 09/30/2022 10 :37 AM EDT documented as of this encounter Last Filed Vital Signs Vital Sign Reading Time Taken Comments Blood Pressure 136/68 08/08/2025 11:18 AM EDT Pulse 76 08/08/2025 11:18 AM EDT Temperature 36.6 C (97.8 F) 08/08/2025 11:18 AM EDT Respiratory Rate 16 08/08/2025 11:1 8 AM EDT Oxygen Saturation - - Inhaled Oxygen Concentration - - Weight 81.6 kg (179 lb 12.8 oz) 025 11:18 AM EDT Height 160 cm (5' 3 ) 08/08/2025 11:18 AM EDT Body Mass Index 31.85 08/08/2025 11:18 AM EDT documented in this encounter Patient Instructions * Patient Instructions* [place] Pena - 08/08/2025 11:15 AM EDT Call insurance to see where they cover pap smears/pelvic SEGMENT ASSEMBLER exam Call [phone] ([facility]) to see if they accept your insurance and have a provider who speaks Belarusian documented in this encounter Miscellaneous Notes * Assessment & Plan Note - [place] Pena - 08/08/2025 8:38 AM EDTAssociated Problem(s): Prediabetes - Reports brand of metformin changed at her pharmacy over the past few months and she does not likethe new smell/taste. Would like to DC metformin, and restart GLP-1. - Re-start Trulicity 0.75mg subcutaneous weekly. Reviewed med safety and SE. She will call in 1 month if interested in dose increase to 1.5mg subcutaneous weekly. - Lifestyle interventions encouraged. documented in this encounter Plan of Treatment Scheduled Orders Name Type Priority Associated Diagnoses Orde r Schedule BI Mammogram Screening Tomosynthesis Bilateral Imaging Routine Screening mammogram for breast cancer Expected: 08/08/2025, Expires: 10/08/2026 XR Toes 2+ Left Imaging Routine Pain of toe of left foot Expected: 08/08/2025, Expires: 08/08/2026 Lipid Panel, Standard Lab Routine Healthcare maintenance Expected: 08/08/2025 (Approximate), Expires: 08/08/2026 TSH with Reflex to Free T4 Lab Routine Healthcare maintenance Expected: 08/08/2025 (Approximate), Expires: 08/08/2026 Comprehensive Metabolic Panel Lab Routine Healthcare maintenance Expected: 08/08/2025 (Approximate), Expires: 08/08/2026 Vitamin D, 25-Hydroxy, Total, Immunoassay Lab Routine Healthcare maintenance Body mass index (BMI) 31.0-31.9, adult Expected: 08/08/2025 (Approximate), Expires: 08/08/2026 Ferritin Lab Routine Healthcare maintenance Expected: 08/08/2025, Expires: 08/08/2026 Scheduled Referrals Name Type Priority Associated Diagnoses Order Schedule Referral to Dermatology Outpatient Referral Routine Trichotillomania Expected: 08/08/2025 (Approximate), Expires: 08/08/2026 documented as of this encounter Goals Goal Patient Goal Type Associated Problems Recent Progress Patient-Stated? Author Record your blood pressure once per day Blood Pressure No Serafin Sue PharmD Short-term: Promote adherence to treatment regimen General No Serafin Sue PharmD Take your medication every day Lifestyle No Serafin Sue PharmD documented as of this encounter Procedures Procedure Name Priority Date/Time Associated Diagnosis Comments CBC WITH AUTO DIFFERENTIAL Routine 08/11/2025 10:49 AM EDT Healthcare maintenance HEMOGLOBIN A1C Routine 08/11/2025 10:49 AM EDT Healthcare maintenance documented in this encounter Results * (ABNORMAL) CBC auto differential (08/11/2025 10:49 AM EDT) White Blood Count 6.6 4.8 - 10.8 X10*3/uL [facility] Red Blood Count 4.36 4.20 - 5.50 X10*6/uL [facility] Hemoglobin 11.7(L) 12.0 - 16.0 g/dl [facility] Hematocrit 37.3 37.0 - 47.0 % [facility] Mean Corpuscular Volume 85.6 80.0 - 98.0 fL [facility] Mean Corpuscular Hemoglobin 26.8(L) 27.0 - 33.0 pg [facility] Mean Corpuscular HGB Conc 31.4 31.0 - 35.0 g/dl [facility] Red Cell Distribution Width 15.5 11.0 - 16.0 % [facility] Platelet Count 327 160 - 400 X10*3/uL [facility] Mean Platelet Volume 10.7 9.4 - 12.3 fL [facility] Neutrophils Percent Auto 68.7 45 - 73 % [facility] Imm Gran Pct Auto 0.3 0.0 - 0.4 % [facility] Lymphocytes Percent Auto 22.5 20 - 40 % [facility] Monocytes Percent Auto 5.5 2 - 11 % [facility] Eosinophils Percent Auto 2.7 0 - 4 % [facility] Basophils Percent Auto 0.3 0 - 2 % [facility] NRBC Pct Auto 0.0 0.0 - 0.2 /100WBC [facility] Neutrophils Absolute Auto 4.5 2.0 - 8.3 x10*3/uL [facility] Imm Gran Abs Auto 0.02 0.00 - 0.03 X10*3/uL [facility] Lymphocytes Absolute Auto 1.5 1.2 - 4.9 X10*3/uL [facility] Monocytes Absolute Auto 0.4 0.1 - 1.2 X10*3/uL [facility] Eosinophils Absolute Auto 0.2 0.0 - 0.4 X10*3/uL [facility] Basophils Absolute Auto 0.0 0.0 - 0.2 X10*3/uL [facility] NRBC Abs Auto 0.000 0.0 - 0.012 X10*3/uL [facility] Blood Venous blood specimen / Unknown 08/11/2025 10:49 AM EDT 08/11/2025 2:14 PM EDT Donna Sinclair SIGN INSTALLER LAB BLOOD ORDERABLES Final Res ult Performing Organization Address [facility] Co de Phone Number [facility] [address] [place] [phone] * Hemoglobin A1c (08/11/2025 10:49 AM EDT) Hemoglobin A1c 6.0 <6.0 % [facility] Comment:Hemoglobin A1C Refer ence Range Adults: 4.8 - 6.0 % Non diabetic: < 6.0 % Goal: < 7.0 %Additional Action Suggested: > 8.0 %Note: Hemoglobin A1c results are invalid for patients with abnormal amounts of HbF. Blood transfusions may impact the HbA1c concentration in the patient sample. Estimated Average Glucose 126 mg/dL [facility] Comment:eAG = Estimated ave rage glucose which is %A1C expressed asaverage glucose, using the formula of the W5Y-GmkljxeSybnxwv Glucose study (ADAG), Diabetes Care, Vol.31,#8,Jul. 2007 Blood Venous blood specimen / Unknown 08/11/2025 10:49 AM EDT 08/11/2025 2:14 PM EDT Donna Sinclair SIGN INSTALLER LAB BLOOD ORDERABLES Final Res ult Performing Organization Address [facility] Co de Phone Number [facility] [address] [place] [phone] documented in this encounter Visit Diagnoses Diagnosis Essential hypertension- Primary Unspecified essential hypertension Hypercholesterolemia Pure hypercholesterolemia Prediabetes Other abnormal glucose Healthcare maintenance Screening mammogram for breast cancer Dietary counseling Dietary surveillance and counseling Exercise counseling Hypertriglyceridemia Pure hyperglyceridemia Subclinical hypothyroidism Other specified acquired hypothyroidism Pain of toe of left foot Trichotillomania Other disorder of impulse control Body mass index (BMI) 31.0-31.9, adult Bloating Flatulence, eructation, and gas pain Encounter for immunization documented in this encounter Additional Health Concerns Assessment Noted Time PHQ-9 Depression Total Score: 8 01/10/20 25 3:34 PM EST documented as of this encounter Care Teams Removable Prosthodontist Relationship Specialty Start Date End Date Donna Sinclair FNP [address] [place] [address] PCP - General Family Medicine 07/23/22 Nafisa Garcia MD [address] [place] [address] Hematology and Oncology 11/11/24 documented as of this encounter
[2025-08-11 14:18] LABS: MANUAL DIFF FLAG NO
[2025-08-11 14:26] LABS: Hematocrit 37.3 % (37.0-47.0); Hemoglobin 11.7 g/dl (12.0-16.0); Imm Gran Abs Auto 0.02 X10*3/uL (0.00-0.03); Imm Gran Pct Auto 0.3 % (0.0-0.4); Lymphocytes Absolute Auto 1.5 X10*3/uL (1.2-4.9); Mean Corpuscular HGB Conc 31.4 g/dl (31.0-35.0); Mean Corpuscular Hemoglobin 26.8 pg (27.0-33.0); Mean Corpuscular Volume 85.6 fL (80.0-98.0); NRBC Abs Auto 0.000 X10*3/uL (0.0-0.012); NRBC Pct Auto 0.0 /100WBC (0.0-0.2); Platelet Count 327 X10*3/uL (160-400); Red Blood Count 4.36 X10*6/uL (4.20-5.50); White Blood Count 6.6 X10*3/uL (4.8-10.8)
[2025-08-11 14:33] LABS: Hemoglobin A1C 126.4822 umol/L; Total Hemoglobin (HGBA1C) 2992.4860 umol/L
--- OUTSIDE RECORDS SUMMARY | 2025-08-11 14:35 | XMS_ITS | Encounter Summary ---
Author Organization [employer] Address [address] [place] [address] [address] [place] [address] Care Team Providers Care Terra Cotta Roofer Helper Name Role Phone Donna Sinclair Primary Care Provider Naifsa Garcia MD Unavailable [phone] Reason for Visit * Reason Comments Med Refill Encounter Details Date Type Department Care Team ([facility] st Contact Info) Description 02/15/2023 Refill [facility] MEDICINE [address] [place] [address] Donna Sinclair FNP [address] [place] [address] Subclinical hypothyroidism Social History Tobacco Use Types [...] documented as of this encounter Care Teams Terra Cotta Roofer Helper Relationship Specialty Start Date End Date Donna Sinclair FNP [address] [place] [address] PCP - General Family Medicine 07/23/22 Nafisa Garcia MD [address] [place] [address] Hematology and Oncology 11/11/24 documented as of this encounter
--- OUTSIDE RECORDS SUMMARY | 2025-08-11 14:35 | XMS_ITS | Encounter Summary ---
Author Organization [employer] Address [address] [facility] 7[address] [place] [address] Care Team Providers Care Travel Sales Consultant Name Role Phone Donna Sinclair Primary Care Provider [phone] Nafisa Garcia MD Unavailable [phone] Reason for Visit * Reason Onset Date Comments Call 2023 Encounter Details Date Type Department Care Team ([facility] st Contact Info) Description [address] [facility] MEDICINE [address] [place] [address] Donna Sinclair FNP [address] [place] [address] Call Social History Tobacco Use Types Packs/Day [...] message previously sent. Please contact pt at [phone] * Telephone Encounter - Luis De Jesus - 2023 11:12 AM EDT Tc from pt requesting a call from us to facility were referral for Unitary was sent to. Pt states that facility needs Authorization Number, Expiration Date, and How many visits. Please contact facility at [phone] and fx #: [phone] Please contact pt at [phone] documented in this encounter Plan of Treatment Not on file documented as of this encounter Visit Diagnoses Not on filedocumented in this encounter Additional Health Concerns Assessment Noted Time PHQ-9 Depression Total Score: 8 12/10/19 23 1:13 PM EST documented as of this encounter Care Teams Travel Sales Consultant Relationship Specialty Start Date End Date Donna Sinclair FNP [address] [place] [address] PCP - General Family Medicine 07/23/22 Nafisa Garcia MD [address] [place] [address] Hematology and Oncology 11/11/24 documented as of this encounter
--- OUTSIDE RECORDS SUMMARY | 2025-08-11 14:35 | XMS_ITS | Encounter Summary ---
Author Organization [employer] Address [address] [facility] 7t [place] [address] Care Team Providers Care Plate Developer Name Role Phone Donna Sinclair Primary Care Provider [phone] Nafisa Garcia MD Unavailable [phone] Encounter Details Date Type Department Care Team (Latest Contact Info) Description 03/28/2023 Orders Only [facility] MEDICINE [address] [place] [address] Donna Sinclair FNP [address] [place] [address] Hypertriglyceridemia (Primary Dx) Social History Tobacco Use [...] documented as of this encounter Care Teams Plate Developer Relationship Specialty Start Date End Date Donna Sinclair FNP [address] [place] [address] PCP - General Family Medicine 07/23/22 Nafisa Garcia MD [address] [place] [address] Hematology and Oncology 11/11/24 documented as of this encounter
--- OUTSIDE RECORDS SUMMARY | 2025-08-11 14:35 | XMS_ITS | Encounter Summary ---
Author Organization [employer] Address [address] [place] [address] 7t [place] [address] Care Team Providers Care Tool Turret Lathe Set Up Operator Name Role Phone Donna Sinclair Primary Care Provider [phone] Nafisa aGrcia MD Unavailable [phone] Reason for Visit * Reason Comments Med Refill Encounter Details Date Type Department Care Team ([facility] st Contact Info) Description 08/28/2023 Refill [facility] MEDICINE [address] [place] [address] Donna Sinclair FNP [address] [place] [address] Social History Tobacco Use Types Packs/Day Years [...] documented as of this encounter Care Teams Tool Turret Lathe Set Up Operator Relationship Specialty Start Date End Date Donna Sinclair FNP [address] [place] [address] PCP - General Family Medicine 07/23/22 Nafisa Garcia MD [address] [place] [address] Hematology and Oncology 11/11/24 documented as of this encounter
--- OUTSIDE RECORDS SUMMARY | 2025-08-11 14:35 | XMS_ITS | Encounter Summary ---
Author Organization [employer] Address [address] [place] [address] 7 [place] [address] Care Team Providers Care Land Agent Name Role Phone Donna Sinclair Primary Care Provider [phone] Nafisa Garcia MD Unavailable [phone] Reason for Visit * Reason Onset Date Comments Medication Question 05/03/2024 Encounter Details Date Type Department Care Team ([facility] st Contact Info) Description 05/03/2024 Telephone [facility] CHC MED & PEDS [address] [place] [address] Donna Sinclair FNP [address] [place], [place] [phone] Medication Question Social History Tobacco Use Types [...] with others, in a hotel, in a fdc, living outside on the street, on a [...] documented as of this encounter Care Teams Land Agent Relationship Specialty Start Date End Date Donna Sinclair FNP [address] [place] [address] PCP - General Family Medicine 07/23/22 Nafisa Garcia MD [address] [place] [address] Hematology and Oncology 11/11/24 documented as of this encounter
--- OUTSIDE RECORDS SUMMARY | 2025-08-11 14:36 | XMS_ITS | Clinical Summary ---
Author Organization [facility] Address [address] [place] [phone] Phone Care Team Providers Care Morning Caregiver Name Role Phone Donna Sinclair RN Primary Care Provider Allergies Active Allergy Reactions Criticality Noted Date Comments Amlodipine Besylate Headache,Nausea And Vomiting 07/01/2011 Bupropion Other 12/24/2022 BP increase and palpitations Codeine GI intolerance,Rash Low 05/09/2011 Other reaction(s): Vomiting Lisinopril Cough 07/01/2011 Oxycodone 03/21/2021 Other reaction(s): Vomiting Oxycodone-Acetaminoph en Nausea And Vomiting 05/09/2011 Other reaction(s): VOMIT Medications estradioL (ESTRACE) 0.01 % (0.1 mg/gram) vaginal cream Sig: Apply to area twice weekly Sent to pharmacy as: Estradiol 0.1 MG/GM Vaginal Cream (ESTRACE VAGINAL) Active cholecalciferol (VITAMIN D-3) 50 mcg (2,000 unit) capsule Take 1 capsule (2,000 Units total) by mouth 1 (one) time each day. 01/24/20 Active medical supply, miscellaneous (MISCELLANEOUS MEDICAL SUPPLY MISC) CPAP HISTORICAL (HISTORICAL CPAP) Sig - Route: Inhale into the lungs. [employer] pressure 6-12.6 - Inhalation Active albuterol HFA (PROVENTIL HFA;VENTOLIN HFA) 108 (90 Base) MCG/ACT inhaler Inhale 2 puffs by mouth every 4 (four) hours if needed for shortness of breath. 09/27/20 18 Active ascorbic acid (VITAMIN C) 1,000 mg tablet Take 1 tablet (1,000 mg total) by mouth daily. Active clobetasoL (TEMOVATE) 0.05 % cream Apply to area twice weekly 01/06/20 23 Active doxepin (SINEquan) 10 mg capsule Take 1 capsule (10 mg total) by mouth at bedtime. at bedtime 10/11/20 24 Active fenofibrate micronized (ANTARA) 43 mg capsule Take 1 capsule (43 mg total) by mouth 1 (one) time each day with breakfast. Active fluticasone propionate (Flonase Allergy Relief) 50 mcg/actuation nasal spray Administer 1 spray into each nostril 2 (two) times a day. 04/09/20 11 Active simvastatin (ZOCOR) 20 mg tablet Take 1 tablet (20 mg total) by mouth at bedtime. 12/09/19 25 Active simethicone 250 mg capsule Take 1 capsule by mouth 2 (two) times a day if needed. 06/28/20 24 Active Gavilax 17 gram/dose oral powder Take 17 g by mouth 1 (one) time each day. Active hydrOXYzine HCL (ATARAX) 25 mg tablet Take 1 tablet (25 mg total) by mouth 3 times daily as needed. 12/03/19 25 Active ketoconazole (NIZORAL) 2 % shampoo Apply topically 2 (two) times a week. 05/02/20 23 Active ferrous sulfate 325 mg (65 mg elemental iron) tablet Take 1 tablet (325 mg total) by mouth every other day. 02/12/20 22 Active lidocaine (LIDODERM) 5 % patch Apply 1 patch topically 1 (one) time each day. Active loratadine (CLARITIN) 10 mg tablet Take 1 tablet (10 mg total) by mouth as needed. 06/17/20 24 Active losartan-hydroCHL OROthiazide (HYZAAR) 100-25 mg per tablet Take 1 tablet by mouth 1 (one) time each day in the morning. 12/09/19 25 Active metFORMIN XR (GLUCOPHAGE-XR) 500 mg 24 hr tablet Take 1 tablet (500 mg total) by mouth 1 (one) time each day with dinner. Active metoprolol succinate (TOPROL-XL) 25 mg 24 hr tablet Take 1 tablet (25 mg total) by mouth 1 (one) time each day. 11/16/20 24 Active minoxidiL (LONITEN) 2.5 mg tablet Take [...] temperature GREATER than 38 C (100.4 F). 07/02/20 23 Active vitamin E, dl,tocopheryl acet, (vitamin E, [...] mouth 2 (two) times a day. Active estradioL (Estring) 2 mg (7.5 mcg /24 hour) vaginal ring Insert 2 mg into the vagina every 3 (three) months. follow package directions 1 each 04/30/20 Active Additional Information Patient not taking.Reported on 07/25/2025 polyethylene glycol (Golytely) 236-22.74-6.74 -5.86 gram solution Take 4L by mouth once for one dose. May substitue any PEG. Starting at 6PM the night before your procedure drink 1 8oz glasses at your own pace until you complete half of the gallon. Finish 2nd half of the gallon 5 hours before your procedure. 4000 mL 05/10/20 25 Active bisacodyL (DULCOLAX) 5 mg EC tablet Take 2 tablets by mouth right before beginning bowel prep. See instructions provided by the office 2 tablet 05/10/20 25 Active Zepbound 2.5 mg/0.5 mL injection inject 0.5 ml (2.5 mg) under the skin 1 (one) time per week. 01/03/20 25 Active omeprazole (PriLOSEC) [address] capsule TAKE 1 CAPSULE BY MOUTH BEFORE BREAKFAST Active ondansetron (ZOFRAN) 4 mg tablet TAKE 1 TABLET BY MOUTH EVERY 8 HOURS NEEDED FOR NAUSEA OR FOR VOMITING FOR UP TO 7 DAYS 03/28/20 25 Active Senexon-S 8.6-50 mg per tablet TAKE 1 TABLET BY MOUTH IF NEEDED EACH DAY FOR CONSTIPATION. 05/02/20 25 Active tretinoin (RETIN-A) 0.025 % cream APPLY TO AFFECTED AREA EVERY DAY AT BEDTIME 07/11/20 24 Active Active Problems Problem Noted Date Diagnosed Date Reactive airway disease with acute exacerbation 10/05/2018 Allergic rhinitis 02/23/2018 Diabetes mellitus with renal manifestation ([facility] V24, [facility] V28) 02/23/2018 Inguinal hernia, right 02/23/2018 Microalbuminuria 02/23/2018 Peripheral neuropathy 02/23/2018 Diabetes mellitus with diabe tic cataract ([facility] V24, [facility] V28) 02/23/2018 Vitamin D deficiency 02/23/2018 Back pain, chronic 02/11/2018 Arthralgia of right hip 08/27/2016 Obstructive sleep apnea 01/31/2015 Overview (09/17/2024): [facility] Home Polysomnogram: Date 12/07/2018; AHI 13, Unclassified [...] narrow angle 08/30/2014 Cataract 08/30/2014 Diabetic retinopathy ([facility] V24, [facility] V28) 08/30/2014 Fibromyalgia 08/15/2014 Diabetes mellitus type 2 wit h neurological manifestations ([facility] V24, [facility] V28) 04/06/2014 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 Fatty liver 07/05/2013 Type 2 diabetes mellitus wit h eye manifestations ([facility] V24, [facility] V28) 05/17/2013 OCD (obsessive compulsive disorder) 01/26/2013 [...] Encounters Date Type Department Care Team Description 08/03/2025 Telephone [address] [phone] Eliza Hutchinson [place] 07/25/2025 2:15 PM EDT Office Visit Pulmon[address] [phone] Bárbara Askew MD ENRIQUE (obstructive sleep apnea) (Primary Dx); Mild persistent asthma, unspecified whether complicated 06/16/2025 2:00 PM EDT Office Visit Obst[facility]s [facility] [place] [address] [place] [phone] Amie Draper CNM UTI symptoms (Primary Dx); Acute vaginitis; Female stress incontinence from Last 3 Months Immunizations Name Administration [...] to the terminal ileum ESOPHAGOGASTRODUODENOSCOPY 01/25/2009 PROCEDURE: KS EGD TRANSORAL BIOPSY SINGLE/MULTIPLE; COMMENT: [facility] - mild bulbar duodenitis, biopsies were reportedly positive for H. pylori infection ESOPHAGOGASTRODUODENOSCOPY 08/11/2012 PROCEDURE: KS EGD TRANSORAL BIOPSY SINGLE/MULTIPLE; COMMENT: visually normal, duodenal bx obtained: normal ENDOMETRIAL ABLATION PROCEDURE: KS ENDOMETRIAL ABLTJ THERMAL W/O HYSTEROSCOPIC GUID EYE SURGERY PROCEDURE: HISTORICAL EYE SURGERY; COMMENT: 2013 - glaucoma BREAST SURGERY PROCEDURE: KS UNLISTED PROCEDURE BREAST; COMMENT: bilat reduction OTHER [...] DX:Depression Diabetes mellitus with diabe tic cataract ([facility] V24, [facility] V28) 02/23/2018 DX:Diabetes mellit us with diabetic cataract (HCC) Diabetes mellitus type 2 wit h neurological manifestations ([facility] V24, [facility] V28) 04/06/2014 DX:Diabetes mellitus type 2 with neurological manifestations (HCC) Diabetes mellitus with renal manifestation (CMS/HCC V24, [facility] V28) 02/23/2018 DX:Diabetes mellitus with re nal manifestation (HCC) Diabetic retinopathy ([facility], [facility] V28) 08/30/2014 DX:Diabetic retinopathy (HCC ) Fatty [...] 2 diabetes mellitus wit h eye manifestations ([facility] V24, [facility] V28) 05/17/2013 DX:Type 2 diabetes mellitus with [...] disclose 2023 11:44 AM EST Obstetrics History * This document contains information received from the source organization and may not represent a complete record from that organization. Para Term AB IAB SAB Ectopic Multiple Livin g Live Births 4 3 3 3 3 Date Outcome GA Total Labor Labor/2nd/3rd Weight Sex Type Anes PTL Lara A1 A5 Name Clin Term CS-Un spec Living Term CS-Un spec Living Term CS-Un spec Living Last Filed Vital Signs Vital Sign Reading Time Taken Comments Blood Pressure 135/66 07/25/2025 2:10 PM EDT Pulse 70 07/25/2025 2:10 PM EDT Temperature 37.1 C (98.7 F) 07/25/2025 2:10 PM EDT Respiratory Rate 18 07/25/2025 2:10 PM EDT Oxygen Saturation 100% 07/25/2025 2:10 PM EDT Inhaled Oxygen Concentration - - Weight 80.9 kg (178 lb 6.4 oz) 07/25/2025 2:10 P M EDT Height 160 cm (5' 3 ) 07/25/2025 2:10 PM EDT Body Mass Index 31.6 07/25/2025 2:10 PM EDT Plan of Treatment Upcoming Encounters Date Type Department Care Team (Late st Contact Info) Description 09/27/2025 3:30 PM EDT Ancillary Procedure [facility] [address] [facility] [address] [place] [phone] 11/14/2025 3:45 PM EST Office Visit Pulmonolgy - [place] [address] [facility] [address] [place] [phone] Bárbara Askew MD [address] [facility] [address] [place] [address] Health Maintenance Due Date Last Done Comments [...] Annual Urine Albumin-Creatinine Ratio (uACR) 11/16/2022 07/19/2015 Hepatitis B Vaccines (3 of 3 - 19+ 3-dose series) 08/04/2024 05/21/2024, 02/02/2024 Depression Screening 12/01/2024 Breast Cancer Screening 02/05/2025 02/05/2023 Falls Risk Assessment 02/17/2025 Diabetes: Blood Sugar Control Test (HGBA1C) 06/21/2025 12/22/2024, 09/29/2023, 07/20/2020 COVID-19 Vaccine ( - season) 2025 Influenza Vaccine (#1) 2025 , 09/04/2021, 08/20/2020, Additional history exists Diabetes: Annual GFR (Glomerular Filtration Rate) 03/29/2026 03/29/2025, 07/20/2020 Hypertension/CHF/CAD Annual BMP Blood Test 03/29/2026 03/29/2025, 07/20/2020 DTaP,Tdap,and Td Vaccines (3 - Td or Tdap) 07/30/2026 07/30/2016, 05/15/2011 Cervical Cancer Screening: HPV 12/31/2026 12/31/2021 Cholesterol Screening (Lipid Panel) 03/29/2030 03/29/2025, 05/21/2024, 07/20/2020 Hepatitis C Screening Completed 12/17/2022, [...] Procedure Name Priority Date/Time Associated Diagnosis Comments CULTURE URINE Routine 06/16/2025 4:10 PM EDT Dysuria TRICHOMONAS VAGINALIS ANTIGEN Routine 06/16/2025 2:24 PM EDT Acute vaginitis WET PREP, GENITAL Routine 06/16/2025 2:2 4 PM EDT Acute vaginitis FANTA SCREENING DIGITAL Routine 02/05/2023 10:04 AM EST Encounter for screening mammogram for malignant neoplasm of breast HM HPV Routine 12/31/2021 ANNUAL BMP BLOOD TEST Routine 07/20/2020 HEMOGLOBIN A1C Routine 07/20/2020 LIPID PANEL Routine 07/20/2020 URINE ALBUMIN CREATININE RATIO Routine 07/19/2015 HEPATITIS C SCREENING Routine 07/22/2011 from Last 3 Months or Most Recently Relevant to Health Maintenance Results * Culture urine (06/16/2025 4:10 PM EDT) Culture, Urine 10,000-49,000 CFU/mL Mixed urogenital fouzia, no uropathogens present. Suggest repeat specimen if clinically indicated. 06/18/2025 12:[address] [facility] Urine Urine specimen obtained by clean catch procedure / Unknown 06/16/2025 4:10 PM EDT 06/16/2025 4:10 PM EDT Valarie Sotomayor [facility] MICROBIOLOGY - GENERAL ORD ERABLES Final Result [facility] [address] [place] [address], [place] [phone] * Trichomonas vaginalis antigen (06/16/2025 2:24 PM EDT) Pathologist [facility] Trichomonas vaginalis Negative Negative 06/16/2025 7:[address] [facility] Swab Vaginal structure / Unknown Non-blood Collection / Unknown 06/16/2025 2:24 PM EDT 06/16/2025 2:24 PM EDT Amie FARRELL LAB MICROBIOLOGY - GENERAL OR DERABLES Final Result [facility] [address] [place] [address], [place] [phone] * Wet prep, genital (06/16/2025 2:24 PM EDT) Clue Cells, Wet Prep Negative Negative 06/16/2025 7:[address] [facility] Yeast, Wet Prep Negative Negative 06/16/2025 7:[address] [facility] Trichomonas, Wet Prep Indeterminate Negative 06/16/2025 7:[address] [facility] Comment:Refer to Trichomonas antigen. Swab Vaginal structure / Unknown Non-blood Collection / Unknown 06/16/2025 2:24 PM EDT 06/16/2025 2:24 PM EDT us Amie Draper CNM LAB MICROBIOLOGY - GENERAL OR DERABLES Final Result [facility] [address] [place] [address], * FANTA SCREENING DIGITAL (02/05/2023 10:04 AM EST) Anatomical Region Laterality Modality Mammography 02/04/2023 3:25 PM EST Narrative 02/05/2023 10:04 AM EST [facility] Diagnostic Imaging Department [address] [place] [address] Patient: MATEUS BLANKENSHIP /Age/Sex: 1960 - 62 - F Unit#: [id number] Location/Status: SPDIMAM/REG CLI Mnemonic/Ordering Site: DIGSC/SPMAM Ordering Physician: CAROLINA RM CNM Fanta Screening Digital - 02/04/23 - 1538 INDICATION: SCREENING COMPARISON: [facility] and outside mammograms dating back to 02/07/2010 TECHNIQUE: CC and MLO views of the breasts were obtained, using full field digital mammography with 3D tomosynthesis views in the MLO projection. Computer aided detection with the [employer] 7.2-H was employed. FINDINGS: The breasts contain scattered fibroglandular tissues. Reduction mammoplasty and multiple noncalcified nodular asymmetries bilaterally similar to the prior exam. No suspicious masses, suspicious microcalcifications, or areas of architectural distortion are identified. There are no secondary signs of breast malignancy. IMPRESSION: No specific mammographic evidence of breast malignancy. Lack of an imaging correlate should not deter or delay biopsy of a clinically significant palpable finding. BI-RADS - Category 2 - Benign finding 3342F, 7025F Annual screening mammography is recommended. Patient entered into a reminder system with a target date for the next mammogram. [id number] / [id number] , [id number] Dictating Physician: ESE MADDOX MD Electronically Signed by: ESE MADDOX MD Dic Date/Time: 02/05/23 0959 Sign date/Time: 02/05/23 1001 Procedure Note Ese Maddox MD - 01/02/2024 [facility] Diagnostic Imaging Department [address] [place] [id number] Patient: MATEUS BLANKENSHIP /Age/Sex: 1960 - 62 - F Unit#: [id number] Location/Status: SPDIMAM/REG CLI Mnemonic/Ordering Site: [facility] Ordering Physician: CAROLINA RM CNM Fanta Screening Digital - 02/04/23 - 1538 INDICATION: SCREENING COMPARISON: [facility] and outside mammograms dating back to 02/07/2010 TECHNIQUE: CC and MLO views of the breasts were obtained, using full field digital mammography with 3D tomosynthesis views in the MLO projection. Computer aided detection with the [employer] 7.2-H was employed. FINDINGS: The breasts contain [...] a target date for the next mammogram. [id number] / [id number]) , [id number] Dictating Physician: ESE MADDOX MD Electronically Signed by: ESE MADDOX MD Dic Date/Time: 02/05/23 0959 Sign date/Time: 02/05/23 1003 Result [facility] Carolina Rm CN IMG BI PROCEDURES Final Result * Cervical Cancer Screening: HPV (12/31/2021) [facility] Cervical Cancer Screening: HPV negative, abstracted Historical Provider HEALTH MAINTENANCE Final Result * Annual BMP Blood Test (07/20/2020) [facility] Annual BMP Blood Test abstracted Result [facility] Historical Provider HEALTH MAINTENANCE Final Result * Hemoglobin A1c (07/20/2020) [facility] Hemoglobin A1C 5.9 <=6.5 % Blood Venous blood specimen / Unknown Historical Provider LAB BLOOD ORDERABLES Mayr l Result * (ABNORMAL) Lipid panel (07/20/2020) Pathologist [facility] LDL/HDL Ratio 6(A) 0 - 4 Triglycerides 315(A) 0 - 150 mg/dL Cholesterol 212(A) 0 - 200 mg/dL HDL 37(A) >=40 mg/dL LDL Cholesterol 112(A) 0 - 100 mg/dL Blood Venous blood specimen / Unknown Result [facility] Provider LAB BLOOD ORDERABLES Mary l Result * Urine Albumin Creatinine Ratio (07/19/2015) [facility] Urine Albumin Creatinine Ratio abstracted Result [facility] Provider HEALTH MAINTENANCE Final Result * Hepatitis C Screening (07/22/2011) Pathologist [facility] Hepatitis C Screening abstracted Result [facility] Provider HEALTH MAINTENANCE Final Result from Last 3 Months or Most Recently Relevant to Health Maintenance Insurance MEDICARE MEDICAID [place] [facility] Care Teams Morning Caregiver Relationship Specialty Start Date End Date Donna Sinclair RN [address] [address] [place] [id number] PCP - General 04/21/23
--- OUTSIDE RECORDS SUMMARY | 2025-08-11 14:36 | XMS_ITS | Clinical Summary ---
Author Organization [employer] Address [address] [place] [address] 7[address] [place] [address] Care Team Providers Care Invoice Coder Name Role Phone DlDonna mason [place] Primary Care Provider [phone] Nafisa Garcia MD Unavailable [phone] Allergies Active Allergy Reactions Criticality Noted Date Comments Acetaminophen 03/21/2021 Other reaction(s): Vomiting Bupropion Other 12/24/2022 BP increase and palpitations Codeine Rash Low 03/21/2021 Other reaction(s): Vomiting Oxycodone 03/21/2021 Other reaction(s): Vomiting Oxycodone-Acetaminophen 12/20/2022 Other reaction(s): VOMIT Medications * This document contains information received from the source organization and may not represent a complete record from that organization. clotrimazole (Lotrimin) 1 % cream APPLY TOPICALLY [...] 1 kit 023 Active [place] [facility] [place] test blood sugar once daily [...] DIFFICULTY BREATHING 18 g 1 023 Active ketoconazole (NIZOral) 2 % shampoo APPLY 2-3 TIMES WEEKLY TO THE AFFECTED AREA(S), LATHER, LEAVE IN PLACE FOR 5 MINUTES, AND THEN RINSE OFF WITH WATER 120 mL 3 023 Active lidocaine (Lidoderm) 5 % patch Apply 1 patch topically in the morning. Remove & discard patch within 12 hours or as directed by . 30 patch 3 023 Active glucose blood (FREESTYLE LITE) test strip TEST BLOOD SUGAR ONCE DAILY 100 strip 11 024 Active losartan-hydroCHL OROthiazide (Hyzaar) 100-25 MG [...] AT BEDTIME 90 tablet 3 025 Active metFORMIN XR (Glucophage-XR) 500 MG 24 hr tablet TAKE 1 TABLET BY MOUTH EVERY EVENING WITH A MEAL. 90 tablet 3 025 Active omeprazole (PriLOSEC) [address] capsule TAKE 1 CAPSULE BY MOUTH BEFORE BREAKFAST. 90 capsule 1 025 Active senna-docusate sodium (Senokot-S) 8.6-50 MG tabletIndications :Constipation, unspecified constipation type Take 1 tablet by mouth if needed each day for constipation. 90 tablet 2 025 2025 Active Minoxidil (Rogaine Mens) 5 % foamIndications:T richotillomania TO use once daily 60 g 11 Active hydroquinone 4 % creamIndications: Melasma Apply topically 2 times daily. 28 g 2025 Active levothyroxine (Synthroid, Levoxyl) 25 MCG tabletIndications :Subclinical hypothyroidism TAKE 1 TABLET EVERY OTHER MORNING ON AN EMPTY STOMACH, 30-60 MINS BEFORE BREAKFAST OR MEDICATIONS. 45 tablet 1 Active tretinoin (Retin-A) 0.05 % cream Apply topically at bedtime. 45 g 2025 Active loratadine (Claritin) 10 MG tablet Take 1 tablet (10 mg) by mouth if needed each day for allergies. 90 tablet 2024 Active fluticasone (Flonase) 50 MCG/ACT nasal spray Administer 1-2 sprays into each nostril if needed each day for rhinitis or allergies. Shake gently. Before first use, prime pump. After use, clean tip and replace cap. 16 g 2025 Active Dulaglutide (Trulicity) 1.5 MG/0.5ML solution auto-injector Inject 1.5 mg under the skin 1 (one) time per week. 2 mL 1 Active ferrous gluconate (Fergon) 324 (38 Fe) MG tabletIndications :Healthcare maintenance Take 1 pill every Friday, Friday, and Friday. Take with a full glass of water or Vit C containing juice, and ideally 1 hour before a meal or 2 hours after a meal 36 tablet Active ibuprofen 200 MG tablet Take 2-3 tablets (400-600 mg) by mouth every 6 (six) hours if needed (pain or fever). 100 tablet 2 2025 Active simethicone 250 MG capsuleIndication s:Bloating Take 1 capsule by mouth twice daily as needed for bloating 60 capsule 3 025 Active ferrous sulfate 325 (65 Fe) MG tablet TAKE 1 TABLET BY ORAL ROUTE EVERY OTHER DAY FOR IRON DEFICIENCY 022 2024 Discontinued fluticasone (Flonase) 50 MCG/ACT nasal spray ADMINISTER 1-2 SPRAYS INTO EACH NOSTRIL IN THE MORNING. SHAKE GENTLY. BEFORE FIRST USE, PRIME PUMP. AFTER USE, CLEAN TIP AND REPLACE CAP. 48 mL 023 2024 Discontinued(T herapy completed) ibuprofen 600 MG tabletIndications :Sprain of right wrist, subsequent encounter TAKE 1 TABLET (600 MG) BY MOUTH EVERY 8 (EIGHT) HOURS IF NEEDED FOR MODERATE PAIN OR FEVER. 50 tablet 1 023 2024 Discontinued(T herapy completed) minoxidil (Loniten) 2.5 MG tablet Take 1 tablet (2.5 mg) by mouth in the morning. 30 tablet 11 023 2024 Discontinued(T herapy completed) loratadine (Claritin) 10 MG tabletIndications :Seasonal allergies TAKE 1 TABLET BY MOUTH EVERY DAY NEEDED FOR ALLERGIES 90 tablet 3 024 2024 Discontinued(T herapy completed) simethicone 250 MG capsuleIndication s:Bloating Take 1 capsule by mouth twice daily as needed for bloating 60 capsule 3 024 2024 Discontinued(R eorder (will not trigger notification to Pharmacy)) metoprolol succinate XL (Toprol-XL) 25 MG 24 hr tabletIndications :Essential hypertension TAKE 1 TABLET BY MOUTH EVERY EVENING (FOR HIGH BLOOD PRESSURE) 90 tablet 3 024 2024 Discontinued(T herapy completed) gabapentin (Neurontin) 400 MG capsuleIndication s:Neuropathy TAKE 1 CAPSULE BY MOUTH TWICE A DAY IN THE MORNING AND AT BEDTIME 60 capsule 3 025 2024 Discontinued(T herapy completed) Dulaglutide (Trulicity) 0.75 MG/0.5ML solution auto-injector Inject 0.75 mg under the skin 1 (one) time per week. 2 mL 2 025 2024 Discontinued hydrOXYzine HCl (Atarax) 25 MG tabletIndications :Moderate anxiety Take 1 tablet (25 mg) by mouth if needed in the morning, at noon, and at bedtime for anxiety. 90 tablet 2 025 2024 Discontinued(T herapy completed) doxepin (SINEquan) 50 MG capsuleIndication s:Trichotillomani a in adult Take 1 capsule (50 mg) by mouth at bedtime. 30 capsule 11 025 2024 Discontinued(T herapy completed) Active Problems Problem Noted Date Diagnosed Date Renal cyst 05/04/2025 Overview (05/04/2025): - Incidental finding on Abd US January 2025 at [facility] of 2 well circumscribed, thin-walled, benign-appearing cysts of the right kidney with the largest measuring 2.1 x 2.1 x 1.8 cm. - Referral to Urology sent 05/04/25 Transaminitis 05/03/2025 Overview (05/03/2025): Lab Results Component Value Date AST 25 03/29/2025 ALT 15 03/29/2025 TOTPROTEIN 7.3 03/29/2025 ALB 4.0 03/29/2025 ALP 94 03/29/2025 TOTALBILIRUB 0.3 03/29/2025 - Abd US completed January 2025 which demonstrated increased echogenicity of liver. No masses or cysts. Assessment & Plan (05/04/2025 6:28 AM EDT): - improvement in LFTs, encouraged to cont with lifestyle interventions Constipation 05/02/2025 Assessment & Plan (05/02/2025 5:01 PM EDT): - Start senna/docusate nightly as needed. encouraged to continue with adequate hydration, good fiber intake, daily movement. 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 Assessment & Plan (05/02/2025 9:55 AM EDT): During [facility] Consult Margarita presenting with excessive worry/anxiety, difficulty controlling worry, anxiety/worry associated to restlessness and/or feeling keyed-up/On edge , easily fatigued , difficulty concentrating and/or mind going blank , and muscle tension , and Fear , recurrent pulling out her hair resulting in hair loss, repeated unsuccessful attempts to decrease hair pulling, hair pulling causes clinically significant distress in social, occupational and other areas of functioning; for a period of 18+ mo, for most or all symptoms in the context of illness or family illness. Pt reports her anxiety is present and constantly finds herself ruminating with thoughts. She rafael by pulling her hair - this is a baseline problem per pt's report- when her anxiety is severe. Margarita is doing pharmacology services with [facility] prescriber, Serafin Hussein. Pt reports having side effects from some of the medication - she will discuss concerns during next appointment with provider. Explored with patient healthy coping strategies to use when pt feels her anxiety is high. Assessment & Plan (03/15/2025 2:57 PM EDT): [...] her report. Margarita is doing pharmacology with [facility] prescriber, Serafin Hussein. Pt report having side [...] Margarita is engaged in psychopharmacology services with [facility] provider, Serafin Hussein. Her next appointment will [...] as protective factors. Pt is currently seeing [facility] psychiatrist, Serafin Hussein for medication management. clinician [...] Hemoglobin range 10.4-11.7. MCV normocytic. [place] [facility] [place]. Garcia. Consult Dec 2024 - no need for parenteral iron at this time, rec EGD/colonoscopy Assessment & Plan (11/11/2024 6:24 PM EST): Hx anemia dating back to 2020. Hemoglobin range 10.4-11.7. MCV normocytic. [place] [facility] [place] Dr. Garcia. Consult Jul 2024 [...] Assessment & Plan (12/28/2023 9:49 PM EST): DC amitriptyline Start doxepin 10mg nightly. Reviewed med safety and SE Previous ineffective med trials include: trazodone Continue with sleep hygiene interventions such as: [...] Sacral Neuromodulation Permanent Implant (Dr. Zamora at [facility]) Indication: refractory urgency urinary incont Assessment & Plan (04/06/2024 9:41 AM EDT): Good response to implant, cont following with specialist Healthcare maintenance 09/22/2023 Overview (05/02/2025): Mammogram: reports completed through [facility] Pap: following with outside provider - Carolina Harrington CNM Colonoscopy: Scheduled May 2025 [facility] [place] Last PE: 09/22/23 Vaccine titers: Mumps titer not c/w immunity in Dec 2023, plan to follow up for MMR vaccine Hep B non-immune Dec 2023, restarted Hep B series January 2024 Dental: [facility] ([facility]) OPH: [facility] Jul 2024, normal Class [...] get help PLAN: 1. Follow up with [facility]: Not recommended for follow-up 2. Patient goal is to find a job in order to leave partner 3. Behavioral Recommendations a. Ind. Therapy, patient declined b. Encouraged to reach out to PCP if she change her mind. c. Continue to use coping skills that has worked for her. Subclinical hypothyroidism 12/24/2022 Overview (08/08/2025): Lab Results Component Value Date TSH 2.16 03/29/2025 -Family history of thyroid disorder -Pt reported fatigue, hair loss, intermittent constipation -Continues with levothyroxine 25mcg every other day Assessment & Plan (12/24/2022 9:43 PM EST): -START levothyroxine 12.5mg daily, reviewed medical technologist chemistry and safety -Repeat labs in 4 weeks [...] eval and tx Essential hypertension 11/18/2022 Overview (05/04/2025): -Losartan-hydrochlorothiazide 100-25mg nightly -Metoprolol 25mg nightly -Lifestyle interventions encouraged -ED precautions reviewed Assessment & Plan (05/02/2025 5:00 PM EDT): Plan to switch to nightly administration for improved med adherence. Advised to follow up if home readings continue to be above goal. ED precautions reviewed. Assessment & Plan (05/21/2024 12:07 PM EDT): [...] Assessment & Plan (09/28/2023 9:26 PM EDT): BP goal < 140/90 mmHg In office reading elevated, although reports home readings well controlled Return parameters reviewed Assessment & Plan (01/28/2023 [...] Assessment & Plan (09/28/2023 9:28 PM EDT): BE completed following PE today. No acute concerns or crisis. Declines referral to therapy at this time. Follow up if interested in the future. Alopecia 11/10/2021 Assessment & Plan (12/16/2024 10:17 AM EST): Referral to reestablish with [facility] Derm Team Assessment & Plan (09/28/2023 9:23 PM EDT): Referral to [facility] Derm team placed 09/28/23 Prediabetes 11/10/2021 Overview (05/03/2025): Lab Results Component Value Date HGBA1C 6.1 (H) 12/22/2024 Assessment & Plan (08/08/2025 8:38 AM EDT): - Reports brand of metformin changed at her pharmacy over the past few months and she does not like the new smell/taste. Would like to DC metformin, and restart GLP- 1. - Re-start Trulicity 0.75mg subcutaneous weekly. Reviewed med safety and SE. She will call in 1 month if interested in dose increase to 1.5mg subcutaneous weekly. - Lifestyle interventions encouraged. Assessment & Plan (05/03/2025 9:58 PM EDT): - Reports brand of metformin changed at her pharmacy over the past few months and she does not like the new smell/taste. Would like to DC metformin, and restart GLP- 1. - Re-start Trulicity 0.75mg subcutaneous weekly. Reviewed med safety and SE. She will call in 1 month if interested in dose increase to 1.5mg subcutaneous weekly. - Lifestyle interventions encouraged. Resolved Problems Problem Noted Date Diagnosed Date [...] water the morning of the procedure Encounters Date Type Department Care Team Description 08/08/2025 11:15 AM EDT Office Visit [facility] [address] [place] [address] Donna Sinclair FNP Essential hypertension (Primary Dx); Hypercholesterolemia; Prediabetes; Healthcare maintenance; Screening mammogram for breast cancer; Dietary counseling; Exercise counseling; Hypertriglyceridemia; Subclinical hypothyroidism; Pain of toe of left foot; Trichotillomania; Body mass index (BMI) 31.0-31.9, adult; Bloating; Encounter for immunization 08/08/2025 Travel 08/05/2025 Telephone [facility] [address] [place] [address] Donna Sinclair FNP chart prep 07/22/2025 Orders Only [facility] [address] [place] [address] Travis Gillette MD 06/30/2025 Refill [facility] [address], [place] [phone] Donna Sinclair FNP Subclinical hypothyroidism 05/31/2025 10:15 AM EDT Office Visit [facility] [address] [place] [address] Travis Gillette MD Trichotillomania (Primary Dx); Trichotillomania in adult; Melasma 05/31/2025 Travel from Last 3 Months Immunizations Immunization Administration Dates Next Due Hep B, adult 08/08/2025,05/21/2024,02/02/2024 Influenza Injectable Quadriv alant Preservative Free IIV4 MDCK 09/13/2019,11/16/2018 Influenza injectable quadriv alent preservative free 09/22/2023,09/04/2021,08/20/2020 Influenza, injectable, quadr ivalent, preservative free, pediatric 09/18/2015,09/13/2014 MMR 08/08/2025 Pneumococcal Conjugate PCV 13 08/28/2016 Pneumococcal Polysaccharide [...] 08/08/2025 11:1 8 AM EDT Oxygen Saturation 94% 05/31/2025 10: 12 AM EDT Inhaled Oxygen Concentration - - Weight 81.6 kg (179 lb 12.8 oz) 025 11:18 AM EDT Height 160 cm (5' 3 ) 08/08/2025 11:18 AM EDT Body Mass Index 31.85 08/08/2025 11:18 AM EDT Plan of Treatment Health Maintenance Due Date [...] - PCV20 or PCV21) 08/28/2021 08/28/2016, 09/13/2014 Mammogram 02/04/2025 02/04/2023 COVID-19 Vaccine ( season) 2025 Influenza Vaccine (#1) 2025 , 09/04/2021, 08/20/2020, Additional history exists Alcohol/Substance Use Screening 11/05/2025 11/05/2024 Diabetes: Hemoglobin A1C 12/22/2025 025, 12/22/2024, 09/29/2023, Additional history exists Depression Screening 01/10/2026 01/10/2025, 01/10/20 25 SDOH Screening 04/18/2026 04/18/2025 Tobacco Screening 05/31/2026 05/31/2025 DTaP/Tdap/Td Vaccines (3 - Td or Tdap) 07/30/2026 07/30/2016, 05/15/2011 Cervical Cancer Screening 01/02/2027 HPV/Cotest 01/02/2027 01/02/2022 Pap Smear 01/02/2027 01/02/2022 Lipid Panel 03/29/2030 03/29/2025, 12/02, 05/21/2024, Additional history exists Hepatitis C Screening Completed 12/17/2022 , 11/13/2021, 03/26/2021 Hepatitis B Vaccines Completed 08/08/2025, 05/21/2024, 02/02/2024 HIB Vaccines Aged Out No longer eligi [...] Routine 08/11/2025 10:49 AM EDT Healthcare maintenance HM DIABETES EYE EXAM Routine 07/21/2025 10:41 AM EDT LIPID PANEL, STANDARD Routine 03/29/2025 10:22 AM EDT Essential hypertension MAMMOGRAPHY Routine 02/04/2023 HEPATITIS C AB W/REFL TO HCV RNA, QN, PCR Routine 12/17/2022 11:08 AM EST Routine health maintenance PAP/HPV Routine 01/02/2022 from Last 3 Months or Most Recently Relevant to Health Maintenance Results * (ABNORMAL) CBC auto differential (08/11/2025 10:49 AM EDT) White Blood Count 6.6 4.8 - 10.8 X10*3/uL [facility] Red Blood Count 4.36 4.20 - 5.50 X10*6/uL [facility] Hemoglobin 11.7(L) 12.0 - 16.0 g/dl [facility] Hematocrit 37.3 37.0 - 47.0 % [facility] Mean Corpuscular Volume 85.6 80.0 - 98.0 fL [facility] Mean Corpuscular Hemoglobin 26.8(L) 27.0 - 33.0 pg [facility] Mean Corpuscular HGB Conc 31.4 31.0 - 35.0 g/dl [facility] Red Cell Distribution Width 15.5 11.0 - 16.0 % [facility] Platelet Count 327 160 - 400 X10*3/uL [facility] Mean Platelet Volume 10.7 9.4 - 12.3 fL [facility] Neutrophils Percent Auto 68.7 45 - 73 % [facility] Imm Gran Pct Auto 0.3 0.0 - 0.4 % [facility] Lymphocytes Percent Auto 22.5 20 - 40 % [facility] Monocytes Percent Auto 5.5 2 - 11 % [facility] Eosinophils Percent Auto 2.7 0 - 4 % [facility] Basophils Percent Auto 0.3 0 - 2 % [facility] NRBC Pct Auto 0.0 0.0 - 0.2 /100WBC [facility] Neutrophils Absolute Auto 4.5 2.0 - 8.3 x10*3/uL [facility] Imm Gran Abs Auto 0.02 0.00 - 0.03 X10*3/uL [facility] Lymphocytes Absolute Auto 1.5 1.2 - 4.9 X10*3/uL [facility] Monocytes Absolute Auto 0.4 0.1 - 1.2 X10*3/uL [facility] Eosinophils Absolute Auto 0.2 0.0 - 0.4 X10*3/uL [facility] Basophils Absolute Auto 0.0 0.0 - 0.2 X10*3/uL [facility] NRBC Abs Auto 0.000 0.0 - 0.012 X10*3/uL [facility] Blood Venous blood specimen / Unknown 08/11/2025 10:49 AM EDT 08/11/2025 2:14 PM EDT Donna Sinclair [facility] BLOOD ORDERABLES Final Res ult [facility] [address] [place] [phone] * Hemoglobin A1c (08/11/2025 10:49 AM EDT) Hemoglobin A1c 6.0 <6.0 % [facility] Comment:Hemoglobin A1C Refer ence Range Adults: 4.8 - 6.0 % Non diabetic: < 6.0 % Goal: < 7.0 %Additional Action Suggested: > 8.0 %Note: Hemoglobin A1c results are invalid for patients with abnormal amounts of HbF. Blood transfusions may impact the HbA1c concentration in the patient sample. Estimated Average Glucose 126 mg/dL [facility] Comment:eAG = Estimated ave rage glucose which is %A1C expressed asaverage glucose, using the formula of the T3K-LkuishrKaklept Glucose study (ADAG), Diabetes Care, Vol.31,#8,Jul. 2007 Blood Venous blood specimen / Unknown 08/11/2025 10:49 AM EDT 08/11/2025 2:14 PM EDT Donna Sinclair [facility] LAB BLOOD ORDERABLES Final Res ult Performing Organization Address City/[facility]/ZIP Co de Phone Number [facility] [address] [place] [address] [phone] * Diabetes Eye Exam (07/21/2025 10:41 AM EDT) Historical Provider HEALTH MAINTENANCE Final Result * (ABNORMAL) Lipid Panel, Standard (03/29/2025 10:22 AM EDT) Triglycerides 228(H) <150 mg/dL [facility] Comment:Desirable Triglyceri de: less than 150 mg/dLBorderline High Triglyceride 150-199 mg/dLHigh Triglyceride: 200-499 mg/dLVery High Triglyceride: greater than or equal to 5OO mg/dL Cholesterol 185 <200 mg/dL [facility] Comment:Desirable Cholestero l: less than 200 mg/dLBorderline High Cholesterol: 200-239 mg/dLHigh Cholesterol: greater than 239 mg/dL LDL Cholesterol Calculated 101(H) <100 mg/dL [facility] Comment:Desirable LDL: less than 100 mg/dLNear Optimal/Above Optimal LDL: 110- 129 mg/dLBorderline High LDL: 130-159 mg/dLHigh LDL: 160-189 mg/dLVery High LDL: greater than or equal to 190 mg/dL HDL Cholesterol 39(L) >40 mg/dL [facility] Comment:Desirable HDL: great er than 40 mg/dL Note: This HDL assay may give artificially low results in patients with liver disease. Blood Venous blood specimen / Unknown 03/29/2025 10:22 AM EDT 03/29/2025 2:20 PM EDT Indiana Spivey MD LAB BLOOD ORDERABLES Final Resul t [facility] [address] [place] [phone] [phone] * Mammography (02/04/2023) Mammogram BIRADS 2 Normal, Abnormal, BIRADS 1 , BIRADS 2 Anatomical Region Laterality Modality Other Historical Provider HEALTH MAINTENANCE Edited Result - Final * Hepatitis C Antibody with Reflex to HCV, RNA, Quantitative, Real-Time PCR (12/17/2022 11:08 AM EST) Pathologist [facility] [place] Hepatitis C Antibody NON-REACT LILLIAM NON-REACT LILLIAM [employer] [place] [employer] Index 0.07 <1.00 [facility] [place] [employer] Comment: HCV antibody was non-reactive. There is no laboratory evidence of HCV infection. In most cases, no further action is required. However, if recent HCV exposure is suspected, a test for HCV RNA (test code 72821) is suggested. For additional information please refer to http://education.[employer]/faq/NEM26l0 (This link is being provided for informational/ educational purposes only.) Blood Venous blood specimen / Unknown 12/17/2022 11:08 AM EST 12/17/2022 11:08 AM EST Narrative [facility] - 12/21/2022 10:38 AM EST FASTING:NO FASTING: NO Donna Sinclair [facility] BLOOD ORDERABLES Final Res ult [facility] [address], [place] [address] [employer] [place] [employer] [address] [facility] [address] [place] [address] * Pap Smear (01/02/2022) Pathologist [facility] [place] Pap Negative for intraephithelial lesion or malignancy Negative for intraephithelial lesion or malignancy, Other HPV Not Detected Undetected, Indeterminate, Quantitative, Not Detected Historical Provider HEALTH MAINTENANCE Final Result from Last 3 Months or Most Recently Relevant to Health Maintenance [place] [address] [place] [address] STANDARD MEDICARE Advance Directives Documents on File Type Date Recorded Patient Candy Decorator Expl anation Advance Directives and Livin g Will 08/09/2025 12:15 PM HCP Care Teams Invoice Coder Relationship Specialty Start Date End Date Donna Sinclair FNP [address] [place] [address] PCP - General Family Medicine 07/23/22 Nafisa Garcia MD [address] [place] [phone] Hematology and Oncology 11/11/24
--- OUTSIDE RECORDS SUMMARY | 2025-08-11 14:36 | XMS_ITS | Encounter Summary ---
Author Organization [employer] Address [address] [facility] [address] [place] [address] Care Team Providers Care Bearing Ring Assembler Name Role Phone Donna Sinclair Primary Care Provider [phone] Nafisa Garcia MD Unavailable [phone] Reason for Visit * Reason Onset Date Comments Med Refill 02/10/2025 Encounter Details Date Type Department Care Team ([facility] st Contact Info) Description 02/10/2025 Telephone [facility] [address] [place] [address] Donna Sinclair FNP [address] [place] [address] Med Refill Social History Tobacco Use Types [...] AM EDT documented as of this encounter Functional Status * Over the last 2 weeks, how often have you been bothered by any of the following problems? Question Answer Date of Assessment Author Feeling nervous, anxious, or on edge 3 02/11/2025 1:19 PM EDT Jenna Garibay Not being able to stop or control worrying 3 02/11/2025 1:19 PM EDT Jenna Garibay Worrying too much about different things 3 02/11/2025 1:19 PM EDT Jenna Garibay Trouble relaxing 2 02/11/2025 1:19 PM EDT Juliet Dexter Being so restless that it is hard to sit still 1 02/11/2025 1:19 PM EDT Jenna Garibay ctliudmila Becoming easily annoyed or irritable 1 02/11/2025 1:19 PM EDT Jenna Garibay Feeling afraid as if somethi ng awful might happen 1 02/11/2025 1:19 PM EDT Jenna Garibay ctliudmila ALISON-7 Total Score 14 02/11/2025 1:19 PM EDT Juliet Garibay documented as of this encounter Miscellaneous Notes [...] documented as of this encounter Care Teams Bearing Ring Assembler Relationship Specialty Start Date End Date Donna Sinclair FNP [address] [place] [address] PCP - General Family Medicine 07/23/22 Nafisa Garcia MD [address] [place] [phone] Hematology and Oncology 11/11/24 documented as of this encounter
--- OUTSIDE RECORDS SUMMARY | 2025-08-11 14:36 | XMS_ITS | Encounter Summary ---
Author Organization [employer] Address [address] [facility] 7t [place] [address] Care Team Providers Care Paper Spooler Name Role Phone Donna Sinclair [place] Primary Care Provider [phone] Nafisa Garcia MD Unavailable [phone] Encounter Details Date Type Department Care Team (Latest Contact Info) Description 08/08/2025 Travel Social History Tobacco Use Types Packs/Day [...] documented as of this encounter Care Teams Paper Spooler Relationship Specialty Start Date End Date Donna Sinclair FNP [address] [place] [address] PCP - General Family Medicine 07/23/22 Nafisa Garcia MD [address] [place] [address] Hematology and Oncology 11/11/24 documented as of this encounter
--- OUTSIDE RECORDS SUMMARY | 2025-08-11 14:36 | XMS_ITS | Encounter Summary ---
Author Organization [employer] Address [address] [facility] 7 [place] [address] Care Team Providers Care Mold Burner Name Role Phone Donna Sinclair Primary Care Provider [phone] Nafisa Garcia MD Unavailable [phone] Reason for Visit * Reason Onset Date Comments Error 03/08/2024 Encounter Details Date Type Department Care Team ([facility] st Contact Info) Description 03/08/2024 Telephone [facility] MEDICINE [address] [place] [address] Donna Sinclair FNP [address] [place] [address] Error Social History Tobacco Use Types Packs/Day [...] with others, in a hotel, in a long-term, living outside on the street, on a [...] documented as of this encounter Care Teams Mold Burner Relationship Specialty Start Date End Date Donna Sinclair FNP [address] [place] [address] PCP - General Family Medicine 07/23/22 Nafisa Garcia MD [address] [place] [address] Hematology and Oncology 11/11/24 documented as of this encounter
--- OUTSIDE RECORDS SUMMARY | 2025-08-11 14:36 | XMS_ITS | Encounter Summary ---
Author Organization [employer] Address [address] [place] [address] 7 [place] [address] Care Team Providers Care Music Instructor Name Role Phone DlDonna mason [place] Primary Care Provider [phone] Nafisa Garcia MD Unavailable [phone] Encounter Details Date Type Department Care Team ([facility] Contact Info) Description 07/22/2025 Orders Only [facility] MED & PEDS [address] [place] [address] Travis Gillette MD [address] [place] [address] Social History Tobacco Use Types Packs/Day Years [...] enough money to get more: Never True 10/ Transportation Answer Date Recorded In the past [...] Procedure Name Priority Date/Time Associated Diagnosis Comments DIABETES EYE EXAM Routine 07/21/2025 10:41 AM EDT documented in this encounter Results * Diabetes Eye Exam (07/21/2025 10:41 AM EDT) Historical Provider HEALTH MAINTENANCE Final Result documented in this encounter Visit Diagnoses Not on filedocumented in this encounter Additional Health Concerns Assessment Noted Time PHQ-9 Depression Total Score: 8 01/10/20 25 3:34 PM EST documented as of this encounter Care Teams Music Instructor Relationship Specialty Start Date End Date Donna Sinclair FNP [address] [place] [address] PCP - General Family Medicine 07/23/22 Nafisa Garcia MD [address] [place] [address] Hematology and Oncology 11/11/24 documented as of this encounter
--- OUTSIDE RECORDS SUMMARY | 2025-08-11 14:36 | XMS_ITS | Encounter Summary ---
Author Organization [employer] Address [address] [place] [address] 7t [place] [address] Care Team Providers Care Asp Web Developer Name Role Phone Donna Sinclair Primary Care Provider [phone] Nafisa Garcia MD Unavailable Reason for Visit * Reason Comments Med Refill Encounter Details Date Type Department Care Team ([facility] Contact Info) Description 04/05/2025 Refill [facility] MED & PEDS [address] [place] [address] Donna Sinclair FNP [address] [place] [address] Moderate anxiety Social History Tobacco Use Types Packs/Day Years [...] as of this encounter Visit Diagnoses Diagnosis Moderate anxiety documented in this encounter Additional Health Concerns Assessment Noted Time PHQ-9 Depression Total Score: 8 01/10/20 25 3:34 PM EST documented as of this encounter Care Teams Asp Web Developer Relationship Specialty Start Date End Date Donna Sinclair FNP [address] [place] [address] PCP - General Family Medicine 07/23/22 Nafisa Garcia MD [address] [place] [address] Hematology and Oncology 11/11/24 documented as of this encounter
--- OUTSIDE RECORDS SUMMARY | 2025-08-11 14:36 | XMS_ITS | Encounter Summary ---
Author Organization [employer] Address [address] [facility] 7t [place] [address] Care Team Providers Care Licensed Bondsman Name Role Phone DottieDonna [place] Primary Care Provider [phone] Nafisa Garcia MD Unavailable [phone] Encounter Details Date Type Department Care Team ([facility] st Contact Info) Description 07/30/2024 Orders Only [facility] MEDICINE [address] [place] [address] Provider, MD Dilcia Social History Tobacco Use Types Packs/Day Years [...] documented as of this encounter Care Teams Licensed Bondsman Relationship Specialty Start Date End Date Donna Sinclair FNP [address] [place] [address] PCP - General Family Medicine 07/23/22 Nafisa Garcia MD [address] [place] [address] Hematology and Oncology 11/11/24 documented as of this encounter
--- OUTSIDE RECORDS SUMMARY | 2025-08-11 14:36 | XMS_ITS | Encounter Summary ---
Author Organization [employer] Address [address] [place] [address] 7t [place] [address] Care Team Providers Care Hydraulic Plumber Helper Name Role Phone Donna Sinclair Primary Care Provider [phone] Nafisa Garcia MD Unavailable [phone] Reason for Visit * Reason Comments Med Refill Encounter Details Date Type Department Care Team ([facility] Contact Info) Description 04/10/2025 Refill [facility] MED & PEDS [address] [place] [address] Donna Sinclair FNP [address] [place] [address] Moderate anxiety Social History Tobacco Use Types [...] documented as of this encounter Care Teams Hydraulic Plumber Helper Relationship Specialty Start Date End Date Donna Sinclair FNP [address] [place] [address] PCP - General Family Medicine 07/23/22 Nafisa Garcia MD [address] [place] [address] Hematology and Oncology 11/11/24 documented as of this encounter
--- OUTSIDE RECORDS SUMMARY | 2025-08-11 14:36 | XMS_ITS | Encounter Summary ---
Author Organization [employer] Address [address] [facility] 7t [place] [address] Care Team Providers Care Cv Rn Name Role Phone Donna Sinclair Primary Care Provider [phone] Nafisa Garcia MD Unavailable [phone] Reason for Visit * Reason Onset Date Comments Nurse Triage 01/03/2025 Encounter Details Date Type Department Care Team ([facility] st Contact Info) Description 01/03/[address] [facility] MEDICINE [address] [place] [address] Donna Sinclair FNP [address] [place] [address] Nurse Triage Social History Tobacco Use Types [...] caller accepted this outcome. Contact pt at [phone] documented in this encounter Plan of Treatment [...] documented as of this encounter Care Teams Cv Rn Relationship Specialty Start Date End Date Donna Sinclair FNP [address] [place] [address] PCP - General Family Medicine 07/23/22 Nafisa Garcia MD [address] [place] [address] Hematology and Oncology 11/11/24 documented as of this encounter
--- OUTSIDE RECORDS SUMMARY | 2025-08-11 14:36 | XMS_ITS | Encounter Summary ---
Author Organization [facility] Address [address] [place] [address] Care Team Providers Care Bending Machine Operator Name Role Phone Unavailable Primary Care Provider Unavailabl e Encounter Details Date Type Department Care Team (Late st Contact Info) Description 10/07/2022 Dental Interim Note [facility] [address] [place] [phone] PascalChinyere solomon Y [address] [place], [place] [phone] Social History Tobacco Use Types Packs/Day Years [...]
--- OUTSIDE RECORDS SUMMARY | 2025-08-11 14:36 | XMS_ITS | Encounter Summary ---
Author Organization [employer] Address [address] [place] [address] 7t [place] [address] Care Team Providers Care Link Trainer Name Role Phone Donna Sinclair Primary Care Provider [phone] Nafisa Garcia MD Unavailable [phone] Reason for Visit * Reason Comments Med Refill Encounter Details Date Type Department Care Team ([facility] st Contact Info) Description 01/30/2023 Refill [facility] [address] [place] [address] Donna Sinclair FNP [address] [place] [address] Neuropathy; Primary hypertension Social History Tobacco Use [...] documented as of this encounter Care Teams Link Trainer Relationship Specialty Start Date End Date Donna Sinclair FNP [address] [place] [address] PCP - General Family Medicine 07/23/22 Nafisa Garcia MD [address] [place] [address] Hematology and Oncology 11/11/24 documented as of this encounter
--- OUTSIDE RECORDS SUMMARY | 2025-08-11 14:36 | XMS_ITS | Encounter Summary ---
Author Organization [employer] Address [address] [place] [address] 7t [place] [address] Care Team Providers Care Energy Sales Broker Name Role Phone Donna Sinclair Primary Care Provider [phone] Nafisa Garcia MD Unavailable [phone] Reason for Visit * Reason Comments Med Refill Encounter Details Date Type Department Care Team ([facility] Contact Info) Description 01/07/2025 Refill [facility] MED & PEDS [address] [place] [address] Donna Sinclair FNP [address] [place] [address] Social History Tobacco Use Types Packs/Day Years [...] this encounter Functional Status * Over the past 2 weeks, how often have you been bothered by any of the following problems? Question Answer Date of Assessment Author Patient Health Questionnaire -2 Score 2 01/10/2025 3:34 PM Jenna Albrecht ctliudmila * Little interest or pleasure in doing things Answer Date of Assessment Author Several days 01/10/2025 3:34 PM Juliet Joiner * Feeling down, depressed, or hopeless Answer Date of Assessment Author Several days 01/10/2025 3:34 PM Juliet oJiner * Trouble falling or staying asleep, or sleeping too much Answer Date of Assessment Author Several days 01/10/2025 3:34 PM Juliet Joiner * Feeling tired or having little energy Answer Date of Assessment Author Several days 01/10/2025 3:34 PM Juliet Joiner * Poor appetite or overeating Answer Date of Assessment Author Several days 01/10/2025 3:34 PM Juliet Joiner * Feeling bad about yourself - or that you are a failure or have let yourself or your family down Answer Date of Assessment Author Several days 01/10/2025 3:34 PM Juliet Joiner * Trouble concentrating on things, such as reading the newspaper or watching television Answer Date of Assessment Author Several days 01/10/2025 3:34 PM Juliet Joiner * Moving or speaking so slowly that other people could have noticed? Or the opposite - being so fidgety or restless that you have been moving around a lot more than usual. Answer Date of Assessment Author Several days 01/10/2025 3:34 PM Juliet Joiner * Thoughts that you would be better off or hurting yourself in some way Answer Date of Assessment Author Not at all 01/10/2025 3:34 PM Juliet Joiner * Patient Health Questionnaire-9 Score Answer Date of Assessment Author 8 01/10/2025 3:34 PM Juliet Joiner * How difficult have these problems made it for you to do your work, take care of things at home, or get along with other people? Answer Date of Assessment Author Somewhat difficult 01/10/2025 3:34 PM Juliet Albrecht * Over the last 2 weeks, how often have you been bothered by any of the following problems? Question Answer Date of Assessment Author Feeling nervous, anxious, or on edge 2 01/10/2025 3:34 PM Jenna Albrecht ctoria Not being able to stop or control worrying 1 01/10/2025 3:34 PM Jenna Albrecht ctliudmila Worrying too much about different things 1 01/10/2025 3:34 PM Jenna Albrecht ctliudmila Trouble relaxing 1 01/10/2025 3:34 PM Juliet Lowery Being so restless that it is hard to sit still 1 01/10/2025 3:34 PM Jenna Albrecht ctoria Becoming easily annoyed or irritable 1 01/10/2025 3:34 PM Jenna Albrecht ctoria Feeling afraid as if somethi ng awful might happen 0 01/10/2025 3:34 PM Jenna Albrecht ctoria ALISON-7 Total Score 7 01/10/2025 3:34 PM Juliet Albrecht documented as of this encounter Plan of [...] documented as of this encounter Care Teams Energy Sales Broker Relationship Specialty Start Date End Date Donna Sinclair FNP [address] [place] [address] PCP - General Family Medicine 07/23/22 Nafisa Garcia MD [address] [place] [address] Hematology and Oncology 11/11/24 documented as of this encounter
--- OUTSIDE RECORDS SUMMARY | 2025-08-11 14:36 | XMS_ITS | Clinical Summary ---
Author Organization [facility] Address [address] [place] [address] Care Team Providers Care Assistant Hall Director Name Role Phone Unavailable Primary Care Provider [...] Imm-Zoster, Recombinant (1 of 2) 02/17/2010 Imm-Pneumococcal 50+ (3 of 3 - PCV20 or PCV21) 08/28/2021 08/28/2016, 09/13/2014 Alcohol and Drug Screen 12/01/2024 Depression Annual Screen 12/01/2024 Dental BW 01/07/2025 01/05/2024, 01/29, 04/01/2022 Dental Examination 01/07/2025 01/05/2024, 0 02/12/2023, 04/01/2022 Dental Perio Charting 01/07/2025 01/05/2024, 022 Dental Prophy 01/07/2025 01/05/2024, 02/12/2023 Bone Density Screening 02/17/2025 Falls Prevention 02/17/2025 Hypertension Screening (#1) 02/23/2025 [id number] ( season) 2025 Imm-Influenza (#1) 2025 09/04/2021, 0 08/20/2020, 09/13/2019, Additional history exists Diabetes Screening 03/27/2026 03/27/2023, 0 03/27/2023, 12/17/2022, [...] Routine 01/05/2024 2:20 PM EST Defective dental restorationist Encounter for dental examination and cleaning with [...]
[2025-08-11 14:48] LABS: Alanine Aminotransferase 13 U/L (0-31); Albumin Level 4.2 g/dL (3.5-5.0); Alkaline Phosphatase 102 U/L (39-117); Anion Gap 12 (12-20); Aspartate Amino Transferase 26 U/L (5-31); Blood Urea Nitrogen 21 mg/dL (9-16); Calcium 9.0 mg/dL (8.4-10.2); Carbon Dioxide 28 mmol/L (22-29); Chloride 105 mmol/L (96-108); Cholesterol 196 mg/dL (<200); Estimated Glomerular Filt Rate 42; HDL Cholesterol 34 mg/dL (>40); Potassium 3.8 mmol/L (3.3-5.1); Sodium 141 mmol/L (135-145); Total Protein 7.6 g/dL (6.5-8.0); Triglycerides 245 mg/dL (<150)
[2025-08-11 15:04] LABS: Ferritin 66 ng/mL (10-250)
== END 2025-08-11 10:48 | disposition home or self-care (01) ==
LOC: HO.CHCLDS 10:47
PROVIDERS: Visit Provider Registered Nurse
DX: Z00.00 Encounter for general adult medical examination without abnormal findings (principal); Z68.31 Body mass index [BMI] 31.0-31.9, adult
CPT/HCPCS: 36415; 80053; 80061; 82306; 82728; 83036; 84443; 85025

== ENCOUNTER 2025-08-22 14:41 | Outpatient (REF) | payer MEDICAID, SELFPAY ==
--- OUTSIDE RECORDS SUMMARY | 2025-08-22 17:10 | XMS_ITS | Encounter Summary ---
Demographics Address [address] [place], [place] [id number]
--- OUTSIDE RECORDS SUMMARY | 2025-08-22 17:10 | XMS_ITS | Encounter Summary ---
Author Organization [facility] Address [address] [place] [address] Care Team Providers Care Documentation Consultant Name Role Phone Unavailable Primary Care Provider Unavailabl
== END 2025-08-22 14:42 | disposition home or self-care (01) ==
LOC: HO.HMGCX 14:41
PROVIDERS: PCP Registered Nurse; Visit Provider Registered Nurse
DX: M79.675 Pain in left toe(s) (principal)
CPT/HCPCS: 73660

== ENCOUNTER → 2025-08-22 14:47 | Outpatient (BNV) | payer MEDICAID, SELFPAY | PROVIDERS: PCP Registered Nurse; Visit Provider Radiology Diagnostic Radiology | DX: M19.071 Primary osteoarthritis, right ankle and foot (principal) | CPT/HCPCS: 73660 ==